=== PATIENT | male | born 1955 | race American Indian/Alaskan Native ===

== ENCOUNTER 2018-09-04 19:34 | Inpatient (IN) | payer MEDICARE ==
[2018-09-04 20:16] LABS: Basophils % (Auto) 0.8 % (0.0-1.8); Eosinophils # (Auto) 0.1 K/mm3 (0.0-0.4); Eosinophils % (Auto) 1.3 % (0.0-4.3); Hematocrit 35.5 % (35.5-45.6); Hemoglobin 11.5 gm/dl (11.8-15.2); Lymphocytes # (Auto) 1.6 K/mm3 (1.2-5.4); Lymphocytes % (Auto) 37.3 % (13.4-35.0); Mean Corpuscular HGB Conc 33 % (32-34); Mean Corpuscular Volume 89 fl (84-94); Monocytes # (Auto) 0.4 K/mm3 (0.0-0.8); Monocytes % (Auto) 8.7 % (0.0-7.3); Platelet Count 168 K/mm3 (140-440); Red Blood Count 3.97 M/mm3 (3.65-5.03); Red Cell Distribution Width 18.6 % (13.2-15.2)
--- NOTE | 2018-09-04 20:33 | XRay Report ---
CHEST 2 VIEWS INDICATION / CLINICAL INFORMATION: Chest Pain. COMPARISON: None available. FINDINGS: SUPPORT DEVICES: None. HEART / MEDIASTINUM: Moderately enlarged. LUNGS / PLEURA: The right lung is clear. There is mild venous congestion. In addition there is modera te left lower lobe consolidation with a small associated effusion. The appearance suggests pneumonia. Left upper lung is clear. No pneumothorax. ADDITIONAL FINDINGS: No significant additional findings. IMPRESSION: 1. Left lower lobe pneumonia with minimal parapneumonic effusion. Signer Name: Cordell Lennon MD Signed: 09/04/2018 8:29 PM Workstation Name: [id number]
[2018-09-04 20:42] LABS: Alanine Aminotransferase 16 units/L (7-56); Albumin 3.8 g/dL (3.9-5); Calcium 6.4 mg/dL (8.4-10.2); Hemolysis Index 4
[2018-09-04 20:54] LABS: Chol/HDL Ratio 2.41 %; HDL Cholesterol 58 mg/dL (40-59); LDL Cholesterol,Direct 57 mg/dL (50-130)
[2018-09-04 21:04] LABS: BUN/Creatinine Ratio 7; Blood Urea Nitrogen 125 mg/dL (9-20)
[2018-09-04] MEDS ORDERED: BABY ASPIRIN PO ONE (21:13)
[2018-09-04] MEDS ORDERED: MAXIPIME/NS 2 GM/100 ML 2 GM/100 ML BAG IV ONE (21:22)
--- NOTE | 2018-09-04 22:20 | Emergency Department Report ---
ED General Adult HPI - General Chief complaint: Chest Pain Stated complaint: DIALYSIS/CP/EMESIS/BLOODY STOOL Time Seen by Provider: 09/04/18 20:04 Source: patient, family Mode of arrival: Wheelchair Limitations: Physical Limitation - History of Present Illness Initial comments: Patient presents to the emergency department with a chief complaint of shortness of breath and chest pain. Patient is a hemodialysis patient with dialysis on Tuesdays, , Saturdays. Patient's last fluid dialyis was on Thursday. Patient states he's missed the last 2 dialysis treatments due to him having diarrhea. Patient describes chest pain as diffuse and also complains of shortness of breath. -: Gradual, Sudden Location: lower extremity Severity scale (0 -10): 6 Quality: aching Consistency: constant Improves with: none Worsens with: none Associated Symptoms: denies other symptoms Treatments Prior to Arrival: none - Related Data Previous Rx's Medication Instructions Recorded Last Taken Type Cefuroxime Axetil [Ceftin] 500 mg PO Q48H #3 ml 12/23/17 Unknown Rx Aspirin EC 81 mg PO QDAY #30 tablet. 01/29/18 Unknown Rx AtorvaSTATin [Lipitor] 20 mg PO QHS #30 tablet 01/29/18 Unknown Rx Carvedilol [Coreg] 12.5 mg PO BID #30 tablet 01/29/18 Unknown Rx Lisinopril [Zestril TAB] 40 mg PO QDAY #30 tablet 01/29/18 Unknown Rx NIFEdipine [Nifedipine ER] 30 mg PO DAILY #30 tablet.er 01/29/18 Unknown Rx Omeprazole 20 mg PO DAILY #30 tablet. 01/29/18 Unknown Rx Sevelamer Carbonate [Renvela] 800 mg PO DAILY #30 tablet 01/29/18 Unknown Rx Tamsulosin [Flomax] 1 cap PO DAILY #30 capsule 01/29/18 Unknown Rx oxyCODONE /ACETAMINOPHEN [Percocet 1 tab PO Q4HR #10 tab 01/29/18 Unknown Rx 5/325] Allergies Allergy/AdvReac Type Severity Reaction Status Date / Time No Known Allergies Allergy Verified 09/04/18 19:38 ED Review of Systems ROS: Stated complaint: DIALYSIS/CP/EMESIS/BLOODY STOOL Other details as noted in HPI Comment: All other systems reviewed and negative Constitutional: denies: chills, fever Eyes: denies: eye pain, eye discharge, vision change ENT: denies: ear pain, throat pain Respiratory: denies: cough, shortness of breath, wheezing Cardiovascular: denies: chest pain, palpitations Endocrine: no symptoms reported Gastrointestinal: denies: abdominal pain, nausea, diarrhea Genitourinary: denies: urgency, dysuria Musculoskeletal: denies: back pain, joint swelling, arthralgia Skin: denies: rash, lesions Neurological: denies: headache, weakness, paresthesias Psychiatric: denies: anxiety, depression Hematological/Lymphatic: denies: easy bleeding, easy bruising ED Past Medical Hx - Past Medical History Previous Medical History?: Yes Hx Hypertension: Yes Hx Congestive Heart Failure: Yes Hx Diabetes: No Hx Renal Disease: Yes (dialysis Sat, , ) Hx Asthma: No Hx COPD: No - Surgical History Past Surgical History?: Yes Additional Surgical History: shunt for dialysis - Social History Smoking Status: Never Smoker Substance Use Type: None - Medications Home Medications: Home Medications Medication Instructions Recorded Confirmed Last Taken Type Cefuroxime Axetil [Ceftin] 500 mg PO Q48H #3 ml 12/23/17 09/04/18 Unknown Rx Aspirin EC 81 mg PO QDAY #30 tablet. 01/29/18 09/04/18 Unknown Rx AtorvaSTATin [Lipitor] 20 mg PO QHS #30 tablet 01/29/18 09/04/18 Unknown Rx Carvedilol [Coreg] 12.5 mg PO BID #30 tablet 01/29/18 09/04/18 Unknown Rx Lisinopril [Zestril TAB] 40 mg PO QDAY #30 tablet 01/29/18 09/04/18 Unknown Rx NIFEdipine [Nifedipine ER] 30 mg PO DAILY #30 tablet.er 01/29/18 09/04/18 Unknown Rx Omeprazole 20 mg PO DAILY #30 tablet. 01/29/18 09/04/18 Unknown Rx Sevelamer Carbonate [Renvela] 800 mg PO DAILY #30 tablet 01/29/18 09/04/18 Unknown Rx Tamsulosin [Flomax] 1 cap PO DAILY #30 capsule 01/29/18 09/04/18 Unknown Rx oxyCODONE /ACETAMINOPHEN [Percocet 1 tab PO Q4HR #10 tab 01/29/18 09/04/18 Unknown Rx 5/325] ED Physical Exam - General Limitations: Physical Limitation General appearance: alert, in no apparent distress - Head Head exam: Present: atraumatic, normocephalic - Eye Eye exam: Present: normal appearance - ENT ENT exam: Present: mucous membranes moist - Neck Neck exam: Present: normal inspection - Respiratory Respiratory exam: Present: rales. Absent: respiratory distress - Cardiovascular Cardiovascular Exam: Present: regular rate, normal rhythm. Absent: normal heart sounds, systolic murmur - GI/Abdominal GI/Abdominal exam: Present: soft, normal bowel sounds. Absent: distended, tende rness - Rectal Rectal exam: Present: deferred - Extremities Exam Extremities exam: Present: normal inspection - Back Exam Back exam: Present: normal inspection - Neurological Exam Neurological exam: Present: alert, oriented X3, CN II-XII intact. Absent: motor sensory deficit - Psychiatric Psychiatric exam: Present: normal affect, normal mood - Skin Skin exam: Present: warm, dry, intact, normal color. Absent: rash ED Course Vital Signs 09/04/18 09/04/18 09/04/18 19:44 20:00 20:21 Temperature 98.3 F Pulse Rate 91 H 95 H Respiratory 20 13 17 Rate Blood Pressure 166/104 Blood Pressure 156/98 [Left] O2 Sat by Pulse 98 Oximetry 09/04/18 09/04/18 09/04/18 20:31 20:40 20:45 Temperature Pulse Rate 90 92 H Respiratory 23 18 14 Rate Blood Pressure 166/104 166/104 Blood Pressure [Left] O2 Sat by Pulse 98 Oximetry 09/04/18 09/04/18 09/04/18 21:00 21:18 21:19 Temperature Pulse Rate 96 H 86 Respiratory 18 12 12 Rate Blood Pressure 170/105 Blood Pressure 170/105 [Left] O2 Sat by Pulse 100 Oximetry ED Medical Decision Making - Lab Data Result diagrams: 09/04/18 19:45 09/04/18 19:45 Lab Results 09/04/18 09/04/18 Range/Units 19:45 19:45 WBC 4.3 L (4.5-11.0) K/mm3 RBC 3.97 (3.65-5.03) M/mm3 Hgb 11.5 L (11.8-15.2) gm/dl Hct 35.5 (35.5-45.6) % MCV 89 (84-94) fl MCH 29 (28-32) pg MCHC 33 (32-34) % RDW 18.6 H (13.2-15.2) % Plt Count 168 (140-440) K/mm3 Lymph % (Auto) 37.3 H (13.4-35.0) % [place] % (Auto) 8.7 H (0.0-7.3) % Eos % (Auto) 1.3 (0.0-4.3) % Baso % (Auto) 0.8 (0.0-1.8) % Lymph # 1.6 (1.2-5.4) K/mm3 [place] # 0.4 (0.0-0.8) K/mm3 Eos # 0.1 (0.0-0.4) K/mm3 Baso # 0.0 (0.0-0.1) K/mm3 Seg Neutrophils % 51.9 (40.0-70.0) % Seg Neutrophils # 2.2 (1.8-7.7) K/mm3 Sodium 142 (137-145) mmol/L Potassium 5.6 H (3.6-5.0) mmol/L Chloride 101.7 (98-107) mmol/L Carbon Dioxide 15 L (22-30) mmol/L Anion Gap 31 mmol/L BUN 125 H (9-20) mg/dL Creatinine 18.7 H (0.8-1.5) mg/dL Estimated GFR 3 ml/min BUN/Creatinine Ratio 7 % Glucose 137 H (75-100) mg/dL Calcium 6.4 L (8.4-10.2) mg/dL Total Bilirubin 1.20 (0.1-1.2) mg/dL AST < 5 L (5-40) units/L ALT 16 (7-56) units/L Alkaline Phosphatase 222 H (35-129) units/L Troponin T 0.087 H (0.00-0.029) ng/mL Total Protein 6.9 (6.3-8.2) g/dL Albumin 3.8 L (3.9-5) g/dL Albumin/Globulin Ratio 1.2 % Triglycerides 149 (2-149) mg/dL Cholesterol 140 (50-199) mg/dL LDL Cholesterol Direct 57 (50-130) mg/dL HDL Cholesterol 58 (40-59) mg/dL Cholesterol/HDL Ratio 2.41 % - EKG Data -: EKG Interpreted by Me EKG shows normal: sinus rhythm Rate: normal - Radiology Data Radiology results: report reviewed - Medical Decision Making Discussed patient with and the patient will receive dialysis in a.m. and received Kayexalate in the interim Discussed results of clinic or with the patient Patient has a questionable left lower lobe infiltrate 30 mL/kg IV fluid was refused by the patient due to concern for fluid overload especially since he has not had dialysis since Thursday The patient has a troponin level of 0.087 this was compared to troponin level on 01/28/2018 which was 0.085 Critical care attestation.: If time is entered above; I have spent that time in minutes in the direct care of this critically ill patient, excluding procedure time. ED Disposition Clinical Impression: Fluid overload, Pneumonia, Hyperkalemia Disposition: OP ADMIT IP TO THIS HOSP Is pt being admited?: Yes Does the pt Need Aspirin: No Condition: Stable Instructions: Bacterial Pneumonia (ED) Referrals: PRIMARY CARE [Primary Care Provider] - 3-5 Days Time of Disposition: 22:50
[2018-09-04] MEDS ORDERED: KIONEX PO ONE (22:44)
[2018-09-04] MEDS ORDERED: SODIUM CHLORIDE FLUSH SYRINGE 10 ML IV PRN (23:44)
[2018-09-04] MEDS ORDERED: TYLENOL PO PRN (23:44)
--- NOTE | 2018-09-04 23:44 | History and Physical Report ---
History of Present Illness Date of examination: 09/04/18 History of present illness: 63 year old man with ESRD on HD, HTN, CHF, GERD comes to the ER with complaints of nausea, vomiting and diarrhea for 1 week. Also complain of hematemesis over 1 week and abdominal pain. Pain is in the epigastric area, sharp,intermittent, intensity 4/10, no radiation, cannot identify exacerbating or relieving factors. He missed 2 days of HD Review of systems Constitutional: no weight loss, chills, fever Ears, eyes, nose, mouth and throat: no nasal congestion, no nasal discharge, no sinus pressure, no vision change, no red eye. Neck: No neck pain or rigidity. Cardiovascular: no palpitations, +chest pain Respiratory: no cough Gastrointestinal: no hematochezia, abdominal pain Genitourinary : no frequency , no hematuria Musculoskeletal: no joint swelling or muscle ache Integumentary: no rash, no pruritis Neurological: no parathesias, no focal weakness Endocrine: no cold or heat intolerance, no polyuria or polydipsia Hematologic/Lymphatic: no easy bruising, no easy bleeding, no gland swelling Allergic/Immunologic: no urticaria, no angioedema. PAST MEDICAL HISTORY:hypertension, CHF, ESRD, GERD PAST SURGICAL HISTORY:AVF SOCIAL HISTORY: Denies alcohol, drugs, tobacco FAMILY HISTORY: Hypertension Medications and Allergies Allergies Allergy/AdvReac Type Severity Reaction Status Date / Time No Known Allergies Allergy Verified 09/04/18 19:38 Home Medications Medication Instructions Recorded Confirmed Last Taken Type Cefuroxime Axetil [Ceftin] 500 mg PO Q48H #3 ml 12/23/17 09/04/18 Unknown Rx Aspirin EC 81 mg PO QDAY #30 tablet. 01/29/18 09/04/18 Unknown Rx AtorvaSTATin [Lipitor] 20 mg PO QHS #30 tablet 01/29/18 09/04/18 Unknown Rx Carvedilol [Coreg] 12.5 mg PO BID #30 tablet 01/29/18 09/04/18 Unknown Rx Lisinopril [Zestril TAB] 40 mg PO QDAY #30 tablet 01/29/18 09/04/18 Unknown Rx NIFEdipine [Nifedipine ER] 30 mg PO DAILY #30 tablet.er 01/29/18 09/04/18 Unknown Rx Omeprazole 20 mg PO DAILY #30 tablet. 01/29/18 09/04/18 Unknown Rx Sevelamer Carbonate [Renvela] 800 mg PO DAILY #30 tablet 01/29/18 09/04/18 Unknown Rx Tamsulosin [Flomax] 1 cap PO DAILY #30 capsule 01/29/18 09/04/18 Unknown Rx oxyCODONE /ACETAMINOPHEN [Percocet 1 tab PO Q4HR #10 tab 01/29/18 09/04/18 Unknown Rx 5/325] Exam - Physical Exam Narrative exam: General Apperance: The patient lying in bed, breathing comfortable HEENT: Normocephalic, atraumatic. Pupils equally round and reactive to light, EOMI, no sclericterus or JVD or thyromegaly or nodule. , no carotid bruit, mucous membranes moist, no exudate or erythema Heart: S1-S2, regular is rhythm Lungs: Clear bilaterally, breathing comfortable Abdomen: Positive bowel sounds, soft, tender in the epigastric area, nondistended, no organomegaly Extremities: No edema cyanosis clubbing Skin: no rash, nodule, warm and dry Neuro: cranial nerves 2-12 intact, speech is fluent, motor/sensory intact - Constitutional Vitals: Temp Pulse Resp BP Pulse Ox 98.3 F 88 18 168/105 100 09/04/18 19:44 09/04/18 23:01 09/04/18 23:01 09/04/18 23:01 09/04/18 23:01 Results - Labs CBC & Chem 7: 09/04/18 19:45 09/04/18 19:45 Labs: Abnormal lab results 09/04/18 09/04/18 09/04/18 Range/Units 19:45 19:45 21:30 WBC 4.3 L (4.5-11.0) K/mm3 Hgb 11.5 L (11.8-15.2) gm/dl RDW 18.6 H (13.2-15.2) % Lymph % (Auto) 37.3 H (13.4-35.0) % [place] % (Auto) 8.7 H (0.0-7.3) % Potassium 5.6 H (3.6-5.0) mmol/L Carbon Dioxide 15 L (22-30) mmol/L BUN 125 H (9-20) mg/dL Creatinine 18.7 H (0.8-1.5) mg/dL Glucose 137 H (75-100) mg/dL Lactic Acid (0.7-2.0) mmol/L Calcium 6.4 L (8.4-10.2) mg/dL AST < 5 L (5-40) units/L Alkaline Phosphatase 222 H (35-129) units/L Troponin T 0.087 H (0.00-0.029) ng/mL NT-Pro-B Natriuret Pep > 45837 H (0-900) pg/mL Albumin 3.8 L (3.9-5) g/dL 09/04/18 Range/Units 21:30 WBC (4.5-11.0) K/mm3 Hgb (11.8-15.2) gm/dl RDW (13.2-15.2) % Lymph % (Auto) (13.4-35.0) % [place] % (Auto) (0.0-7.3) % Potassium (3.6-5.0) mmol/L Carbon Dioxide (22-30) mmol/L BUN (9-20) mg/dL Creatinine (0.8-1.5) mg/dL Glucose (75-100) mg/dL Lactic Acid 2.50 H* (0.7-2.0) mmol/L Calcium (8.4-10.2) mg/dL AST (5-40) units/L Alkaline Phosphatase (35-129) units/L Troponin T (0.00-0.029) ng/mL NT-Pro-B Natriuret Pep (0-900) pg/mL Albumin (3.9-5) g/dL - Imaging and Cardiology Chest x-ray: report reviewed Assessment and Plan Assessment Abdominal pain Hematemesis, georgina sung tear Gastroenteritis, viral ESRD needing dialysis CAP hyperkalemia Abnormal cardiac enzymes Hypertension CHF, stable GERD Plan Admit to medicine Check CT abdomen, start IV protonix Check serial hemoglobin, consult GI, renal hydralazine as needed for blood pressure control s/p kayexalate, follow potassium, check cardiac enzymes Start IV levaquin, follow cultures DVT prophalaxis
[2018-09-05] MEDS ORDERED: PROTONIX IV ONE (00:28)
[2018-09-05] MEDS ORDERED: MORPHINE ONE (00:29)
[2018-09-05] MEDS: MORPHINE IV PRN ×2 (00:45→05:48)
[2018-09-05] MEDS: PROTONIX IV SCH ×3 (00:45→22:26)
--- NOTE | 2018-09-05 00:54 | Cat Scan Report ---
CT ABDOMEN AND PELVIS WITHOUT CONTRAST HISTORY: Unspecified abdominal pain with nausea, vomiting and diarrhea. COMPARISON: [facility] from 01/27/2018. TECHNIQUE: Axial, coronal and sagittal CT imaging of the abdomen and pelvis was performed without IV contrast. Lack of intravenous contrast limits evaluation of the vascular and solid organs. All CT scans at this location are performed using CT dose reduction for ALARA by means of automated exposure control. FINDINGS: LOWER CHEST: There is a small left pleural effusion with associated atelectasis. The heart is moderat michelle enlarged without a pericardial effusion. LIVER: Normal in size with scattered probable cysts. No additional significant abnormality. BILIARY: No significant abnormality. PANCREAS: No significant abnormality. SPLEEN: No significant abnormality. ADRENALS: No significant abnormality. KIDNEYS AND URETERS: There is severe bilateral renal atrophy. No acute abnormality is seen. GI TRACT: Liquid stool is seen along the colon and consistent with the provided history of diarrhea. No other significant abnormality of the stomach, small bowel or colon is seen. Unremarkable appendix. PERITONEUM: No free fluid. No free air. No fluid collection. LYMPH NODES: No significant adenopathy. VASCULATURE: No significant abnormality. URINARY BLADDER: The bladder is collapsed and not well evaluated. REPRODUCTIVE ORGANS: The prostate gland is enlarged and measures 6.4 x 5.4 cm. ADDITIONAL FINDINGS: None. SKELETAL SYSTEM: No acute abnormality. Generalized sclerosis/heterogeneity along the bones may be sec ondary to chronic renal disease. IMPRESSION: 1. No acute abnormality of the abdomen or pelvis. 2. Additional findings as above. Signer Name: Dylan Rodriguez MD Signed: 09/05/2018 12:49 AM Workstation Name: [id number]
[2018-09-05 01:07] LABS: Hematocrit 35.1 % (35.5-45.6); Hemoglobin 11.5 gm/dl (11.8-15.2)
[2018-09-05] MEDS: ZOFRAN IV PRN ×2 (01:36→23:15)
[2018-09-05 02:28] LABS: Creatine Kinase MB 4.5 ng/mL (0.0-4.0)
[2018-09-05 04:11] LABS: Basophils % (Auto) 0.7 % (0.0-1.8); Eosinophils # (Auto) 0.1 K/mm3 (0.0-0.4); Eosinophils % (Auto) 1.4 % (0.0-4.3); Hematocrit 34.3 % (35.5-45.6); Hemoglobin 11.2 gm/dl (11.8-15.2); Lymphocytes # (Auto) 2.2 K/mm3 (1.2-5.4); Lymphocytes % (Auto) 44.3 % (13.4-35.0); Mean Corpuscular HGB Conc 33 % (32-34); Mean Corpuscular Volume 89 fl (84-94); Monocytes # (Auto) 0.4 K/mm3 (0.0-0.8); Platelet Count 168 K/mm3 (140-440); Red Blood Count 3.86 M/mm3 (3.65-5.03); Red Cell Distribution Width 18.7 % (13.2-15.2)
[2018-09-05 04:28] LABS: Calcium 6.2 mg/dL (8.4-10.2)
--- NOTE | 2018-09-05 08:59 | Progress Note ---
Assessment and Plan Assessment and plan: Assessment Abdominal pain Hematemesis,likely georgina sung tear Gastroenteritis, viral ESRD needing dialysis CAP hyperkalemia Abnormal cardiac enzymes Hypertension CHF, stable GERD Plan Admitted to medicine Continue IV protonix Check serial hemoglobin, consulted GI, renal hydralazine as needed for blood pressure control s/p kayexalate, follow potassium, check cardiac enzymes Cont IV levaquin, follow cultures Check stool culture,cdiff DVT prophalaxis History Interval history: Nausea and vomiting Hematemesis Diarrhea Hospitalist Physical - Physical exam Narrative exam: Gen: Not in acute distress, sitting up in bed, morbidly obese HEENT: Normocephalic, atraumatic Neck: supple, no JVD Heart: S1 and S2 reg, no murmurs, rubs or gallop Lungs: Clear, no crackles or wheeze Abd: soft, non tender, non distended, normal BS, wound vac to abdomen Ext: No edema, no clubbing, no cyanosis Neuro:awake,alert, Oriented X 3. No focal neuro signs Psych: normal mood - Constitutional Vitals: Temp Pulse Resp BP Pulse Ox 97.3 F L 86 18 167/96 96 09/05/18 03:55 09/05/18 04:48 09/05/18 06:18 09/05/18 03:55 09/05/18 03:55 Results - Labs CBC & Chem 7: 09/05/18 10:00 09/05/18 03:41 Labs: Laboratory Last Values WBC 4.9 K/mm3 (4.5-11.0) 09/05/18 03:41 RBC 3.86 M/mm3 (3.65-5.03) 09/05/18 03:41 Hgb 11.2 gm/dl (11.8-15.2) L 09/05/18 03:41 Hct 34.3 % (35.5-45.6) L 09/05/18 03:41 MCV 89 fl (84-94) 09/05/18 03:41 MCH 29 pg (28-32) 09/05/18 03:41 MCHC 33 % (32-34) 09/05/18 03:41 RDW 18.7 % (13.2-15.2) H 09/05/18 03:41 Plt Count 168 K/mm3 (140-440) 09/05/18 03:41 Lymph % (Auto) 44.3 % (13.4-35.0) H 09/05/18 03:41 [place] % (Auto) 9.0 % (0.0-7.3) H 09/05/18 03:41 Eos % (Auto) 1.4 % (0.0-4.3) 09/05/18 03:41 Baso % (Auto) 0.7 % (0.0-1.8) 09/05/18 03:41 Lymph # 2.2 K/mm3 (1.2-5.4) 09/05/18 03:41 [place] # 0.4 K/mm3 (0.0-0.8) 09/05/18 03:41 Eos # 0.1 K/mm3 (0.0-0.4) 09/05/18 03:41 Baso # 0.0 K/mm3 (0.0-0.1) 09/05/18 03:41 Seg Neutrophils % 44.6 % (40.0-70.0) 09/05/18 03:41 Seg Neutrophils # 2.2 K/mm3 (1.8-7.7) 09/05/18 03:41 Sodium 144 mmol/L (137-145) 09/05/18 03:41 Potassium 5.6 mmol/L (3.6-5.0) H 09/05/18 03:41 Chloride 103.2 mmol/L (98-107) 09/05/18 03:41 Carbon Dioxide 16 mmol/L (22-30) L 09/05/18 03:41 30 mmol/L 09/05/18 03:41 BUN 124 mg/dL (9-20) H 09/05/18 03:41 19.6 mg/dL (0.8-1.5) H 09/05/18 03:41 Estimated GFR 3 ml/min 09/05/18 03:41 6 % 09/05/18 03:41 Glucose 113 mg/dL (75-100) H 09/05/18 03:41 Lactic Acid 1.50 mmol/L (0.7-2.0) 09/05/18 03:41 Calcium 6.2 mg/dL (8.4-10.2) L 09/05/18 03:41 1.20 mg/dL (0.1-1.2) 09/04/18 19:45 AST < 5 units/L (5-40) L 09/04/18 19:45 ALT 16 units/L (7-56) 09/04/18 19:45 222 units/L (35-129) H 09/04/18 19:45 617 units/L (55-170) H 09/05/18 01:04 CK-MB (CK-2) 4.5 ng/mL (0.0-4.0) H 09/05/18 01:04 CK-MB (CK-2) Rel Index 0.7 (0-4) 09/05/18 01:04 0.087 ng/mL (0.00-0.029) H 09/05/18 01:04 NT-Pro-B Natriuret Pep > 44538 pg/mL (0-900) H 09/04/18 21:30 6.9 g/dL (6.3-8.2) 09/04/18 19:45 3.8 g/dL (3.9-5) L 09/04/18 19:45 1.2 % 09/04/18 19:45 Triglycerides 149 mg/dL (2-149) 09/04/18 19:45 Cholesterol 140 mg/dL (50-199) 09/04/18 19:45 57 mg/dL (50-130) 09/04/18 19:45 58 mg/dL (40-59) 09/04/18 19:45 2.41 % 09/04/18 19:45 Active Medications - Current Medications Current Medications: Generic Name Dose Route Start Last Admin Trade Name Freq PRN Reason Stop Dose Admin Acetaminophen 650 mg 09/04/18 23:44 Tylenol PO Q4H PRN Pain MILD(1-3)/Fever >100.5/STARK Levofloxacin/Dextrose 250 mg in 50 mls @ 50 mls/hr 09/05/18 10:00 Levaquin 250mg/50ml IV Q24HR BRANDEE Protocol Morphine Sulfate 2 mg 09/04/18 23:44 09/05/18 05:48 Morphine IV 2 mg Q4H PRN Administration Pain, Moderate (4-6) Ondansetron HCl 4 mg 09/04/18 23:44 09/05/18 01:36 Zofran IV 4 mg Q8H PRN Administration Nausea And Vomiting Pantoprazole Sodium 40 mg 09/04/18 23:45 09/05/18 00:45 Protonix IV 40 mg BID BRANDEE Administration Sodium Chloride 10 ml 09/05/18 10:00 Sodium Chloride Flush Syringe 10 Ml IV BID BRANDEE Sodium Chloride 10 ml 09/04/18 23:44 09/05/18 05:49 Sodium Chloride Flush Syringe 10 Ml IV 10 ml PRN PRN Administration LINE FLUSH
[2018-09-05] MEDS: SODIUM CHLORIDE FLUSH SYRINGE 10 ML IV SCH ×2 (10:19→22:26)
[2018-09-05] MEDS: LEVAQUIN 250MG/50ML 250 MG/50 ML BAG IV SCH (10:19)
[2018-09-05 10:35] LABS: Creatine Kinase MB 4.6 ng/mL (0.0-4.0)
[2018-09-05 10:45] LABS: Hematocrit 37.2 % (35.5-45.6); Hemoglobin 11.2 gm/dl (11.8-15.2)
[2018-09-05] MEDS ORDERED: NACL 0.9% 100 ML IV PRN (11:25)
[2018-09-05] MEDS ORDERED: NACL 0.9 (PRIMING MACHINE ONLY DIALYSIS) MC ONE (12:20)
[2018-09-05 12:32] LABS: Hepatitis C Virus Antibody Non-Reactive (NonReactive)
[2018-09-05 13:08] LABS: Hepatitis B Surface Antigen Non-Reactive (Negative)
--- NOTE | 2018-09-05 13:11 | Consultation ---
History of Present Illness - Reason for Consult Consult date: 09/05/18 end stage renal disease Requesting physician: MICHELLE SHAH - History of Present Illness 63 year old man with ESRD on HD, HTN, CHF, GERD comes to the ER with complaints of nausea, vomiting and diarrhea for 1 week. Also complain of hematemesis over 1 week and abdominal pain. Pain is in the epigastric area, sharp,intermittent, intensity 4/10, no radiation, cannot identify exacerbating or relieving factors. He missed 2 days of HD. He is found to be hyperkalemic with a potassium of 5.6. He is also clinically volume overloaded. Hemodialysis has been initiated. He is tolerating it well. Past History Past Medical History: dialysis, GERD, heart failure, hypertension Past Surgical History: Other (history of creation of AV fistula) Social history: no significant social history Family history: no significant family history Medications and Allergies Allergies Allergy/AdvReac Type Severity Reaction Status Date / Time No Known Allergies Allergy Verified 09/04/18 19:38 Home Medications Medication Instructions Recorded Confirmed Last Taken Type Cefuroxime Axetil [Ceftin] 500 mg PO Q48H #3 ml 12/23/17 09/04/18 Unknown Rx Aspirin EC 81 mg PO QDAY #30 tablet. 01/29/18 09/04/18 Unknown Rx AtorvaSTATin [Lipitor] 20 mg PO QHS #30 tablet 01/29/18 09/04/18 Unknown Rx Carvedilol [Coreg] 12.5 mg PO BID #30 tablet 01/29/18 09/04/18 Unknown Rx Lisinopril [Zestril TAB] 40 mg PO QDAY #30 tablet 01/29/18 09/04/18 Unknown Rx NIFEdipine [Nifedipine ER] 30 mg PO DAILY #30 tablet.er 01/29/18 09/04/18 Unknown Rx Omeprazole 20 mg PO DAILY #30 tablet. 01/29/18 09/04/18 Unknown Rx Sevelamer Carbonate [Renvela] 800 mg PO DAILY #30 tablet 01/29/18 09/04/18 Unknown Rx Tamsulosin [Flomax] 1 cap PO DAILY #30 capsule 01/29/18 09/04/18 Unknown Rx oxyCODONE /ACETAMINOPHEN [Percocet 1 tab PO Q4HR #10 tab 01/29/18 09/04/18 Unknown Rx 5/325] Active Meds: Active Medications Acetaminophen (Tylenol) 650 mg PO Q4H PRN PRN Reason: Pain MILD(1-3)/Fever >100.5/STARK Levofloxacin/Dextrose (Levaquin 250mg/50ml) 250 mg in 50 mls @ 50 mls/hr IV Q24HR [facility]; Protocol Last Admin: 09/05/18 10:19 Dose: 50 mls/hr Documented by: Sodium Chloride (Nacl 0.9%) 100 mls @ 999 mls/hr IV MARGARET PRN PRN Reason: Hypotension Morphine Sulfate (Morphine) 2 mg IV Q4H PRN PRN Reason: Pain, Moderate (4-6) Last Admin: 09/05/18 05:48 Dose: 2 mg Documented by: Ondansetron HCl (Zofran) 4 mg IV Q8H PRN PRN Reason: Nausea And Vomiting Last Admin: 09/05/18 01:36 Dose: 4 mg Documented by: Pantoprazole Sodium (Protonix) 40 mg IV BID [facility] Last Admin: 09/05/18 10:19 Dose: 40 mg Documented by: Sodium Chloride (Sodium Chloride Flush Syringe 10 Ml) 10 ml IV BID [facility] Last Admin: 09/05/18 10:19 Dose: 10 ml Documented by: Sodium Chloride (Sodium Chloride Flush Syringe 10 Ml) 10 ml IV PRN PRN PRN Reason: LINE FLUSH Last Admin: 09/05/18 05:49 Dose: 10 ml Documented by: Review of Systems All systems: negative (negative except as noted above) Exam - Vital Signs Vital signs: Vital Signs Temp Pulse Resp BP Pulse Ox 98.3 F 91 H 20 156/98 98 09/04/18 19:44 09/04/18 19:44 09/04/18 19:44 09/04/18 19:44 09/04/18 19:44 - General Appearance General appearance: well-developed, well-nourished, appears stated age EENT: PERRL, mucous membranes moist Neck: Present: neck supple, trachea midline. Absent: JVD/HJR, Masses Respiratory: Rales (bibasilar crackles) Heart: regular, normal heart rate Gastrointestinal: Present: normoactive bowel sounds, tenderness (diffuse abdominal tenderness.) Integumentary: no rash, other (AV fistula right upper arm. Cannulated for dialysis.) Results - Lab Results 09/05/18 10:00 09/05/18 03:41 Most recent lab results Calcium 6.2 mg/dL (8.4-10.2) L 09/05/18 03:41 Assessment and Plan Impression * End-stage renal disease on maintenance hemodialysis * Hyperkalemia * Congestive heart failure * Noncompliance * Abdominal pain * Metabolic acidosis * History of GERD Recommendations * Patient is currently undergoing urgent dialysis. Tolerating well. * Remove fluid as tolerated * Check his chemistries and volume status again tomorrow. May need additional treatment tomorrow * Patient states that he undergoes dialysis at a clinic in [facility] under the care of Dr. Schofield * Hold phosphate binders for now due to his GI symptoms * Check a lipase level * CT scan done in the emergency room was essentially unremarkable * Adjust diet admits for ESRD state * Thank you very much for the consultation. Shall follow along with you
--- NOTE | 2018-09-05 16:42 | Gastroenterology Consultation ---
History of Present Illness - Reason for Consult Consult date: 09/05/18 N/V Requesting physician: TIFFANIE ROSALES - History of Present Illness This is a pleasant 63 year old man with ESRD on HD, HTN, CHF, GERD who present with recurrent episode of nausea, vomiting abd pain and diarrhea for 2 week. He reports 2 weeks ago started to develop abdominal pain that was diffuse, gradual, started off mild but is progressing to the point of now being severe. Sharp, better with meds, worse with eating, associated with N/V/diarrhea. Reports some blood streak in vomitus but again has been nauseated alot these last few days. Missed 2 dialysis sessions. PAST MEDICAL HISTORY:hypertension, CHF, ESRD, GERD PAST SURGICAL HISTORY: AVF SOCIAL HISTORY: Denies alcohol, drugs, tobacco FAMILY HISTORY: Hypertension Home meds reviewed, updated, and reconciled Past History Past Medical History: dialysis, GERD, heart failure, hypertension Past Surgical History: Other (history of creation of AV fistula) Social history: no significant social history Family history: no significant family history Medications and Allergies Allergies Allergy/AdvReac Type Severity Reaction Status Date / Time No Known Allergies Allergy Verified 09/04/18 19:38 Home Medications Medication Instructions Recorded Confirmed Last Taken Type Cefuroxime Axetil [Ceftin] 500 mg PO Q48H #3 ml 12/23/17 09/04/18 Unknown Rx Aspirin EC 81 mg PO QDAY #30 tablet. 01/29/18 09/04/18 Unknown Rx AtorvaSTATin [Lipitor] 20 mg PO QHS #30 tablet 01/29/18 09/04/18 Unknown Rx Carvedilol [Coreg] 12.5 mg PO BID #30 tablet 01/29/18 09/04/18 Unknown Rx Lisinopril [Zestril TAB] 40 mg PO QDAY #30 tablet 01/29/18 09/04/18 Unknown Rx NIFEdipine [Nifedipine ER] 30 mg PO DAILY #30 tablet.er 01/29/18 09/04/18 Unknown Rx Omeprazole 20 mg PO DAILY #30 tablet. 01/29/18 09/04/18 Unknown Rx Sevelamer Carbonate [Renvela] 800 mg PO DAILY #30 tablet 01/29/18 09/04/18 Unknown Rx Tamsulosin [Flomax] 1 cap PO DAILY #30 capsule 01/29/18 09/04/18 Unknown Rx oxyCODONE /ACETAMINOPHEN [Percocet 1 tab PO Q4HR #10 tab 01/29/18 09/04/18 Unknown Rx 5/325] Active Meds: Active Medications Acetaminophen (Tylenol) 650 mg PO Q4H PRN PRN Reason: Pain MILD(1-3)/Fever >100.5/STARK Levofloxacin/Dextrose (Levaquin 250mg/50ml) 250 mg in 50 mls @ 50 mls/hr IV Q24HR [facility]; Protocol Last Admin: 09/05/18 10:19 Dose: 50 mls/hr Documented by: Sodium Chloride (Nacl 0.9%) 100 mls @ 999 mls/hr IV MARGARET PRN PRN Reason: Hypotension Morphine Sulfate (Morphine) 2 mg IV Q4H PRN PRN Reason: Pain, Moderate (4-6) Last Admin: 09/05/18 05:48 Dose: 2 mg Documented by: Ondansetron HCl (Zofran) 4 mg IV Q8H PRN PRN Reason: Nausea And Vomiting Last Admin: 09/05/18 01:36 Dose: 4 mg Documented by: Pantoprazole Sodium (Protonix) 40 mg IV BID [facility] Last Admin: 09/05/18 10:19 Dose: 40 mg Documented by: Sodium Chloride (Sodium Chloride Flush Syringe 10 Ml) 10 ml IV BID [facility] Last Admin: 09/05/18 10:19 Dose: 10 ml Documented by: Sodium Chloride (Sodium Chloride Flush Syringe 10 Ml) 10 ml IV PRN PRN PRN Reason: LINE FLUSH Last Admin: 09/05/18 05:49 Dose: 10 ml Documented by: Review of Systems - Review of Systems All systems: negative Gastrointestinal: abdominal pain, nausea, vomiting, diarrhea Exam - Constitutional Vital Signs: Temp Pulse Resp BP Pulse Ox 98.2 F 70 18 141/78 96 09/05/18 14:31 09/05/18 14:31 09/05/18 14:31 09/05/18 14:31 09/05/18 03:55 General appearance: other (uncomfortable) - EENT Eyes: other (no scleral icterus) ENT: hearing intact - Neck Neck: supple - Respiratory Respiratory: bilateral: CTA - Cardiovascular Rhythm: regular - Gastrointestinal General gastrointestinal: Present: soft, tender - Integumentary Integumentary: Present: warm, dry - Musculoskeletal Musculoskeletal: normal - Neurologic Neurological: alert and oriented x3 - Psychiatric Psychiatric: appropriate mood/affect - Labs CBC & Chem 7: 09/05/18 10:00 09/05/18 03:41 Lab Results: Laboratory Results - last 24 hr 09/04/18 09/04/18 09/04/18 19:45 19:45 21:30 WBC 4.3 L RBC 3.97 Hgb 11.5 L Hct 35.5 MCV 89 MCH 29 MCHC 33 RDW 18.6 H Plt Count 168 Lymph % (Auto) 37.3 H Stark % (Auto) 8.7 H Eos % (Auto) 1.3 Baso % (Auto) 0.8 Lymph # 1.6 Stark # 0.4 Eos # 0.1 Baso # 0.0 Seg Neutrophils % 51.9 Seg Neutrophils # 2.2 Sodium 142 Potassium 5.6 H Chloride 101.7 Carbon Dioxide 15 L Anion Gap 31 BUN 125 H Creatinine 18.7 H Estimated GFR 3 BUN/Creatinine Ratio 7 Glucose 137 H Lactic Acid Calcium 6.4 L Total Bilirubin 1.20 AST < 5 L ALT 16 Alkaline Phosphatase 222 H Total Creatine Kinase CK-MB (CK-2) CK-MB (CK-2) Rel Index Troponin T 0.087 H NT-Pro-B Natriuret Pep > 74656 H Total Protein 6.9 Albumin 3.8 L Albumin/Globulin Ratio 1.2 Triglycerides 149 Cholesterol 140 LDL Cholesterol Direct 57 HDL Cholesterol 58 Cholesterol/HDL Ratio 2.41 Lipase Hepatitis A IgM Ab Hep Bs Antigen Hep B Core IgM Ab Hepatitis C Antibody 09/04/18 09/05/18 09/05/18 21:30 00:43 00:43 WBC RBC Hgb 11.5 L Hct 35.1 L MCV MCH MCHC RDW Plt Count Lymph % (Auto) Stark % (Auto) Eos % (Auto) Baso % (Auto) Lymph # Stark # Eos # Baso # Seg Neutrophils % Seg Neutrophils # Sodium Potassium Chloride Carbon Dioxide Anion Gap BUN Creatinine Estimated GFR BUN/Creatinine Ratio Glucose Lactic Acid 2.50 H* 2.10 H* Calcium Total Bilirubin AST ALT Alkaline Phosphatase Total Creatine Kinase CK-MB (CK-2) CK-MB (CK-2) Rel Index Troponin T NT-Pro-B Natriuret Pep Total Protein Albumin Albumin/Globulin Ratio Triglycerides Cholesterol LDL Cholesterol Direct HDL Cholesterol Cholesterol/HDL Ratio Lipase Hepatitis A IgM Ab Hep Bs Antigen Hep B Core IgM Ab Hepatitis C Antibody 09/05/18 09/05/18 09/05/18 01:04 01:04 03:41 WBC 4.9 RBC 3.86 Hgb 11.2 L Hct 34.3 L MCV 89 MCH 29 MCHC 33 RDW 18.7 H Plt Count 168 Lymph % (Auto) 44.3 H Stark % (Auto) 9.0 H Eos % (Auto) 1.4 Baso % (Auto) 0.7 Lymph # 2.2 Stark # 0.4 Eos # 0.1 Baso # 0.0 Seg Neutrophils % 44.6 Seg Neutrophils # 2.2 Sodium Potassium Chloride Carbon Dioxide Anion Gap BUN Creatinine Estimated GFR BUN/Creatinine Ratio Glucose Lactic Acid Calcium Total Bilirubin AST ALT Alkaline Phosphatase Total Creatine Kinase 617 H CK-MB (CK-2) 4.5 H CK-MB (CK-2) Rel Index 0.7 Troponin T 0.087 H NT-Pro-B Natriuret Pep Total Protein Albumin Albumin/Globulin Ratio Triglycerides Cholesterol LDL Cholesterol Direct HDL Cholesterol Cholesterol/HDL Ratio Lipase Hepatitis A IgM Ab Hep Bs Antigen Hep B Core IgM Ab Hepatitis C Antibody 09/05/18 09/05/18 09/05/18 03:41 03:41 10:00 WBC RBC Hgb 11.2 L Hct 37.2 MCV MCH MCHC RDW Plt Count Lymph % (Auto) Stark % (Auto) Eos % (Auto) Baso % (Auto) Lymph # Stark # Eos # Baso # Seg Neutrophils % Seg Neutrophils # Sodium 144 Potassium 5.6 H Chloride 103.2 Carbon Dioxide 16 L Anion Gap 30 BUN 124 H Creatinine 19.6 H Estimated GFR 3 BUN/Creatinine Ratio 6 Glucose 113 H Lactic Acid 1.50 Calcium 6.2 L Total Bilirubin AST ALT Alkaline Phosphatase Total Creatine Kinase CK-MB (CK-2) CK-MB (CK-2) Rel Index Troponin T NT-Pro-B Natriuret Pep Total Protein Albumin Albumin/Globulin Ratio Triglycerides Cholesterol LDL Cholesterol Direct HDL Cholesterol Cholesterol/HDL Ratio Lipase Hepatitis A IgM Ab Hep Bs Antigen Hep B Core IgM Ab Hepatitis C Antibody 09/05/18 09/05/18 09/05/18 10:00 10:00 10:00 WBC RBC Hgb Hct MCV MCH MCHC RDW Plt Count Lymph % (Auto) Stark % (Auto) Eos % (Auto) Baso % (Auto) Lymph # Stark # Eos # Baso # Seg Neutrophils % Seg Neutrophils # Sodium Potassium Chloride Carbon Dioxide Anion Gap BUN Creatinine Estimated GFR BUN/Creatinine Ratio Glucose Lactic Acid Calcium Total Bilirubin AST ALT Alkaline Phosphatase Total Creatine Kinase 571 H CK-MB (CK-2) 4.6 H CK-MB (CK-2) Rel Index 0.8 Troponin T 0.083 H NT-Pro-B Natriuret Pep Total Protein Albumin Albumin/Globulin Ratio Triglycerides Cholesterol LDL Cholesterol Direct HDL Cholesterol Cholesterol/HDL Ratio Lipase 50 Hepatitis A IgM Ab Hep Bs Antigen Hep B Core IgM Ab Hepatitis C Antibody 09/05/18 11:31 WBC RBC Hgb Hct MCV MCH MCHC RDW Plt Count Lymph % (Auto) Stark % (Auto) Eos % (Auto) Baso % (Auto) Lymph # Stark # Eos # Baso # Seg Neutrophils % Seg Neutrophils # Sodium Potassium Chloride Carbon Dioxide Anion Gap BUN Creatinine Estimated GFR BUN/Creatinine Ratio Glucose Lactic Acid Calcium Total Bilirubin AST ALT Alkaline Phosphatase Total Creatine Kinase CK-MB (CK-2) CK-MB (CK-2) Rel Index Troponin T NT-Pro-B Natriuret Pep Total Protein Albumin Albumin/Globulin Ratio Triglycerides Cholesterol LDL Cholesterol Direct HDL Cholesterol Cholesterol/HDL Ratio Lipase Hepatitis A IgM Ab Non-reactive Hep Bs Antigen Non-reactive Hep B Core IgM Ab Non-reactive Hepatitis C Antibody Non-reactive Assessment and Plan Patient will likely require EGD for further evaluation of his symptoms, especially as they proceeded his missing dialysis (his current labs would cause N/V, but presumably they were normal last week after his symptoms had already started but had not yet missed any dialysis sessions). The Differential diagnosis includes PUD, HPylori, etc, also in Ddx is biliary source so if EGD is neg then will pursue biliary evaluation. Continue supportive care, once electrolytes are normalized can pursue EGD Follow up stool studies given diarrhea - Patient Problems (1) Generalized abdominal pain Current Visit: Yes Status: Acute (2) Nausea & vomiting Current Visit: Yes Status: Acute (3) Diarrhea Current Visit: Yes Status: Acute
[2018-09-06 06:24] LABS: Basophils % (Auto) 0.3 % (0.0-1.8); Eosinophils # (Auto) 0.1 K/mm3 (0.0-0.4); Eosinophils % (Auto) 1.6 % (0.0-4.3); Hematocrit 31.6 % (35.5-45.6); Hemoglobin 10.5 gm/dl (11.8-15.2); Lymphocytes # (Auto) 1.3 K/mm3 (1.2-5.4); Mean Corpuscular HGB Conc 33 % (32-34); Mean Corpuscular Volume 88 fl (84-94); Monocytes # (Auto) 0.5 K/mm3 (0.0-0.8); Monocytes % (Auto) 14.3 % (0.0-7.3); Platelet Count 163 K/mm3 (140-440); Red Blood Count 3.59 M/mm3 (3.65-5.03); Red Cell Distribution Width 18.7 % (13.2-15.2)
[2018-09-06 07:00] LABS: Calcium 5.3 mg/dL (8.4-10.2)
--- NOTE | 2018-09-06 09:49 | Progress Note ---
Assessment and Plan Assessment and plan: Assessment Abdominal pain Hematemesis, Gastroenteritis, viral ESRD needing dialysis CAP left lower lobe left parapneumoonic effusion hyperkalemia Abnormal cardiac enzymes Hypertension Chronic CHF, stable GERD Plan Admitted to medicine Serial H/H has been stable Continue IV protonix Check serial hemoglobin, GI Physivcian following. For EGD tomorrow Nephrology managing ESRD on dialysis hydralazine as needed for blood pressure control s/p kayexalate for hyperkalemia, now resolved Cont IV levaquin, follow cultures Check stool culture,cdiff DVT prophalaxis SCDs only because hematemesis Fu repeat CXR in am. If left pleural effusion persists may consult Pulm. History Interval history: Nausea and vomiting Hematemesis Diarrhea Hospitalist Physical - Physical exam Narrative exam: Gen: Not in acute distress, lying in bed HEENT: Normocephalic, atraumatic Neck: supple, no JVD Heart: S1 and S2 reg, no murmurs, rubs or gallop Lungs: Clear, no crackles or wheeze Abd: soft, non tender, non distended, normal BS, Ext: No edema, no clubbing, no cyanosis Neuro:awake,alert, Oriented X 3. No focal neuro signs Psych: normal mood - Constitutional Vitals: Temp Pulse Resp BP Pulse Ox 98.2 F 84 18 134/78 100 09/06/18 07:32 09/06/18 07:32 09/06/18 07:32 09/06/18 07:32 09/06/18 07:32 Results - Labs CBC & Chem 7: 09/06/18 05:08 09/06/18 21:10 Labs: Laboratory Last Values WBC 3.8 K/mm3 (4.5-11.0) L 09/06/18 05:08 RBC 3.59 M/mm3 (3.65-5.03) L 09/06/18 05:08 Hgb 10.5 gm/dl (11.8-15.2) L 09/06/18 05:08 Hct 31.6 % (35.5-45.6) L 09/06/18 05:08 MCV 88 fl (84-94) 09/06/18 05:08 MCH 29 pg (28-32) 09/06/18 05:08 MCHC 33 % (32-34) 09/06/18 05:08 RDW 18.7 % (13.2-15.2) H 09/06/18 05:08 Plt Count 163 K/mm3 (140-440) 09/06/18 05:08 Lymph % (Auto) 34.0 % (13.4-35.0) 09/06/18 05:08 [place] % (Auto) 14.3 % (0.0-7.3) H 09/06/18 05:08 Eos % (Auto) 1.6 % (0.0-4.3) 09/06/18 05:08 Baso % (Auto) 0.3 % (0.0-1.8) 09/06/18 05:08 Lymph # 1.3 K/mm3 (1.2-5.4) 09/06/18 05:08 [place] # 0.5 K/mm3 (0.0-0.8) 09/06/18 05:08 Eos # 0.1 K/mm3 (0.0-0.4) 09/06/18 05:08 Baso # 0.0 K/mm3 (0.0-0.1) 09/06/18 05:08 Seg Neutrophils % 49.8 % (40.0-70.0) 09/06/18 05:08 Seg Neutrophils # 1.9 K/mm3 (1.8-7.7) 09/06/18 05:08 Sodium 142 mmol/L (137-145) 09/06/18 05:08 Potassium 4.1 mmol/L (3.6-5.0) D 09/06/18 05:08 Chloride 99.6 mmol/L (98-107) 09/06/18 05:08 Carbon Dioxide 23 mmol/L (22-30) D 09/06/18 05:08 24 mmol/L 09/06/18 05:08 BUN 64 mg/dL (9-20) H 09/06/18 05:08 13.5 mg/dL (0.8-1.5) H 09/06/18 05:08 Estimated GFR 5 ml/min 09/06/18 05:08 5 % 09/06/18 05:08 Glucose 90 mg/dL (75-100) 09/06/18 05:08 Lactic Acid 1.50 mmol/L (0.7-2.0) 09/05/18 03:41 Calcium 5.3 mg/dL (8.4-10.2) L* 09/06/18 05:08 1.20 mg/dL (0.1-1.2) 09/04/18 19:45 AST < 5 units/L (5-40) L 09/04/18 19:45 ALT 16 units/L (7-56) 09/04/18 19:45 222 units/L (35-129) H 09/04/18 19:45 571 units/L (55-170) H 09/05/18 10:00 CK-MB (CK-2) 4.6 ng/mL (0.0-4.0) H 09/05/18 10:00 CK-MB (CK-2) Rel Index 0.8 (0-4) 09/05/18 10:00 0.083 ng/mL (0.00-0.029) H 09/05/18 10:00 NT-Pro-B Natriuret Pep > 89375 pg/mL (0-900) H 09/04/18 21:30 6.9 g/dL (6.3-8.2) 09/04/18 19:45 3.8 g/dL (3.9-5) L 09/04/18 19:45 1.2 % 09/04/18 19:45 Triglycerides 149 mg/dL (2-149) 09/04/18 19:45 Cholesterol 140 mg/dL (50-199) 09/04/18 19:45 57 mg/dL (50-130) 09/04/18 19:45 58 mg/dL (40-59) 09/04/18 19:45 2.41 % 09/04/18 19:45 50 units/L (13-60) 09/05/18 10:00 Hepatitis A IgM Ab Non-reactive (NonReactive) 09/05/18 11:31 Hep Bs Antigen Non-reactive (Negative) 09/05/18 11:31 Hep B Core IgM Ab Non-reactive (NonReactive) 09/05/18 11:31 Non-reactive (NonReactive) 09/05/18 11:31 Active Medications - Current Medications Current Medications: Generic Name Dose Route Start Last Admin Trade Name Freq PRN Reason Stop Dose Admin Acetaminophen 650 mg 09/04/18 23:44 Tylenol PO Q4H PRN Pain MILD(1-3)/Fever >100.5/STARK Levofloxacin/Dextrose 250 mg in 50 mls @ 50 mls/hr 09/05/18 10:00 09/05/18 10:19 Levaquin 250mg/50ml IV 50 mls/hr Q24HR [facility] Administration Protocol Sodium Chloride 100 mls @ 999 mls/hr 09/05/18 11:25 Nacl 0.9% IV MARGARET PRN Hypotension Morphine Sulfate 2 mg 09/04/18 23:44 09/05/18 05:48 Morphine IV 2 mg Q4H PRN Administration Pain, Moderate (4-6) Ondansetron HCl 4 mg 09/04/18 23:44 09/05/18 23:15 Zofran IV 4 mg Q8H PRN Administration Nausea And Vomiting Pantoprazole Sodium 40 mg 09/04/18 23:45 09/05/18 22:26 Protonix IV 40 mg BID [facility] Administration Sodium Chloride 10 ml 09/05/18 10:00 09/05/18 22:26 Sodium Chloride Flush Syringe 10 Ml IV 10 ml BID [facility] Administration Sodium Chloride 10 ml 09/04/18 23:44 09/05/18 05:49 Sodium Chloride Flush Syringe 10 Ml IV 10 ml PRN PRN Administration LINE FLUSH
[2018-09-06] MEDS: LEVAQUIN 250MG/50ML 250 MG/50 ML BAG IV SCH (09:55)
[2018-09-06] MEDS: ZOFRAN IV PRN ×3 (09:55→23:55)
[2018-09-06] MEDS: PROTONIX IV SCH ×2 (09:55→22:02)
[2018-09-06] MEDS: SODIUM CHLORIDE FLUSH SYRINGE 10 ML IV SCH ×2 (10:16→22:02)
--- NOTE | 2018-09-06 11:53 | Gastroenterology Progress Note ---
Assessment and Plan Patient still with severe symptoms, but with severe hypocalcemia so cannot pursue EGD today. Getting lytes repleted, will pursue EGD tomorrow The Differential diagnosis includes PUD, HPylori, etc, also in Ddx is biliary source so if EGD is neg then will pursue biliary evaluation. Follow up stool studies given diarrhea on admission - Patient Problems (1) Generalized abdominal pain Current Visit: Yes Status: Acute (2) Nausea & vomiting Current Visit: Yes Status: Acute (3) Diarrhea Current Visit: Yes Status: Acute Subjective Date of service: 09/06/18 Principal diagnosis: Abd pain, N/V Interval history: Patient reports currently when I examined him still with abdominal pain that was diffuse, gradual, started off mild but is now severe. Sharp, better with meds, worse with eating, associated with N/V. Objective - Constitutional Vitals: Temp Pulse Resp BP Pulse Ox 98.2 F 84 18 134/78 100 09/06/18 07:32 09/06/18 07:32 09/06/18 07:32 09/06/18 07:32 09/06/18 07:32 General appearance: other (lethargic) - EENT Eyes: other (no scleral icterus) ENT: hearing intact - Neck Neck: supple - Respiratory Respiratory effort: normal - Cardiovascular Heart Sounds: Present: S1 & S2 - Gastrointestinal General gastrointestinal: Present: soft, tender - Labs CBC & Chem 7: 09/06/18 05:08 09/06/18 05:08 Labs: Laboratory Results - last 24 hr 09/05/18 09/05/18 09/06/18 10:00 11:31 05:08 WBC 3.8 L RBC 3.59 L Hgb 10.5 L Hct 31.6 L MCV 88 MCH 29 MCHC 33 RDW 18.7 H Plt Count 163 Lymph % (Auto) 34.0 [place] % (Auto) 14.3 H Eos % (Auto) 1.6 Baso % (Auto) 0.3 Lymph # 1.3 [place] # 0.5 Eos # 0.1 Baso # 0.0 Seg Neutrophils % 49.8 Seg Neutrophils # 1.9 Sodium Potassium Chloride Carbon Dioxide Anion Gap BUN Creatinine Estimated GFR BUN/Creatinine Ratio Glucose Calcium Lipase 50 Hepatitis A IgM Ab Non-reactive Hep Bs Antigen Non-reactive Hep B Core IgM Ab Non-reactive Hepatitis C Antibody Non-reactive 09/06/18 05:08 WBC RBC Hgb Hct MCV MCH MCHC RDW Plt Count Lymph % (Auto) [place] % (Auto) Eos % (Auto) Baso % (Auto) Lymph # [place] # Eos # Baso # Seg Neutrophils % Seg Neutrophils # Sodium 142 Potassium 4.1 D Chloride 99.6 Carbon Dioxide 23 D Anion Gap 24 BUN 64 H Creatinine 13.5 H Estimated GFR 5 BUN/Creatinine Ratio 5 Glucose 90 Calcium 5.3 L* Lipase Hepatitis A IgM Ab Hep Bs Antigen Hep B Core IgM Ab Hepatitis C Antibody
[2018-09-06] MEDS: MORPHINE IV PRN (16:06)
--- NOTE | 2018-09-06 17:06 | Progress Note ---
Assessment and Plan - Patient Problems (1) ESRD on dialysis Current Visit: No Status: Chronic Plan to address problem: ESRD on dialysis - Will continue dialysis - TTS schedule for now (2) Abdominal pain Current Visit: Yes Status: Acute Plan to address problem: Abdominal pain - CT without overt cause of pain . - GI evaluation (3) Anemia Current Visit: No Status: Chronic Plan to address problem: Mild Anemia : hb: 10.5g/dl 2/2 renal failure monitor CBC. (4) HTN (hypertension) Current Visit: No Status: Chronic Qualifiers: Hypertension type: unspecified Qualified Code(s): I10 - Essential (primary) hypertension Plan to address problem: HTN: controlled continue current meds. (5) Hypocalcemia Current Visit: Yes Status: Acute Plan to address problem: Hypocalcemia : asymptomatic severe will give calcium gluconate 1gram x1 . Subjective Interval history: 63 year old with ESRD on hemodialysis TTS admitted with abdominal pain found to have hyperkalemia . Last dialysis was Thursday c/o cramping has severe abdominal pain this am CT abdomen on admission reports darks stools denies any hematochezia has had some nausea. Objective - Vital Signs Vital signs: Vital Signs - 12hr 09/06/18 07:32 Temperature 98.2 F Pulse Rate 84 Respiratory 18 Rate Blood Pressure 134/78 O2 Sat by Pulse 100 Oximetry - General Appearance General appearance: well-developed, well-nourished EENT: ATNC, PERRL Neck: no JVD Respiratory: Present: Clear to Ascultation Cardiology: regular, S1S2 Gastrointestinal: tenderness, guarding Integumentary: no rash Neurologic: alert and oriented x3, CN 3-12 intact Psychiatric: mood/affect appropriate - Lab 09/06/18 05:08 09/06/18 05:08 Most recent lab results Calcium 5.3 mg/dL (8.4-10.2) L* 09/06/18 05:08 - Imaging CT scan - abdomen: report reviewed (I reviewed CT abdomen report no findings. ) Medications & Allergies - Medications Allergies/Adverse Reactions: Allergies No Known Allergies Allergy (Verified 09/04/18 19:38) Home Medications: Home Medications Medication Instructions Recorded Confirmed Last Taken Type Cefuroxime Axetil [Ceftin] 500 mg PO Q48H #3 ml 12/23/17 09/04/18 Unknown Rx Aspirin EC 81 mg PO QDAY #30 tablet. 01/29/18 09/04/18 Unknown Rx AtorvaSTATin [Lipitor] 20 mg PO QHS #30 tablet 01/29/18 09/04/18 Unknown Rx Carvedilol [Coreg] 12.5 mg PO BID #30 tablet 01/29/18 09/04/18 Unknown Rx Lisinopril [Zestril TAB] 40 mg PO QDAY #30 tablet 01/29/18 09/04/18 Unknown Rx NIFEdipine [Nifedipine ER] 30 mg PO DAILY #30 tablet.er 01/29/18 09/04/18 Unknown Rx Omeprazole 20 mg PO DAILY #30 tablet. 01/29/18 09/04/18 Unknown Rx Sevelamer Carbonate [Renvela] 800 mg PO DAILY #30 tablet 01/29/18 09/04/18 Unknown Rx Tamsulosin [Flomax] 1 cap PO DAILY #30 capsule 01/29/18 09/04/18 Unknown Rx oxyCODONE /ACETAMINOPHEN [Percocet 1 tab PO Q4HR #10 tab 01/29/18 09/04/18 Unknown Rx 5/325] Active Medications: Generic Name Dose Route Start Last Admin Trade Name Freq PRN Reason Stop Dose Admin Acetaminophen 650 mg 09/04/18 23:44 Tylenol PO Q4H PRN Pain MILD(1-3)/Fever >100.5/STARK Sodium Chloride 100 mls @ 999 mls/hr 09/05/18 11:25 Nacl 0.9% IV MARGARET PRN Hypotension Levofloxacin/Dextrose 500 mg in 100 mls @ 100 mls/hr 09/08/18 10:00 Levaquin 500mg/100ml IV Q48H BRANDEE Protocol Morphine Sulfate 2 mg 09/04/18 23:44 09/06/18 16:06 Morphine IV 2 mg Q4H PRN Administration Pain, Moderate (4-6) Ondansetron HCl 4 mg 09/04/18 23:44 09/06/18 16:06 Zofran IV 4 mg Q8H PRN Administration Nausea And Vomiting Pantoprazole Sodium 40 mg 09/04/18 23:45 09/06/18 09:55 Protonix IV 40 mg BID BRANDEE Administration Sodium Chloride 10 ml 09/05/18 10:00 09/06/18 10:16 Sodium Chloride Flush Syringe 10 Ml IV 10 ml BID BRANDEE Administration Sodium Chloride 10 ml 09/04/18 23:44 09/05/18 05:49 Sodium Chloride Flush Syringe 10 Ml IV 10 ml PRN PRN Administration LINE FLUSH
[2018-09-06] MEDS ORDERED: CALCIUM GLUCONATE 1,000 MG in NACL 0.9% 100 ML IV ONE (17:30)
[2018-09-06 22:24] LABS: Calcium 5.3 mg/dL (8.4-10.2)
[2018-09-06] MEDS: COREG PO SCH ×2 (23:55→23:57)
[2018-09-07 06:35] LABS: Hematocrit 34.5 % (35.5-45.6); Hemoglobin 11.4 gm/dl (11.8-15.2); Mean Corpuscular HGB Conc 33 % (32-34); Mean Corpuscular Volume 88 fl (84-94); Platelet Count 171 K/mm3 (140-440); Red Blood Count 3.93 M/mm3 (3.65-5.03); Red Cell Distribution Width 18.2 % (13.2-15.2)
[2018-09-07 07:14] LABS: Calcium 5.3 mg/dL (8.4-10.2)
--- NOTE | 2018-09-07 08:25 | Gastroenterology Progress Note ---
Assessment and Plan Patient still with severe symptoms, but again today with severe hypocalcemia so cannot pursue EGD today. Please aggressively replete the hypocalcemia, once this is resolved I can safely pursue EGD (tentatively for tomorrow) The Differential diagnosis includes PUD, HPylori, etc, also in Ddx is biliary source so if EGD is neg then will pursue biliary evaluation. Follow up stool studies given diarrhea on admission - Patient Problems (1) Generalized abdominal pain Current Visit: Yes Status: Acute (2) Nausea & vomiting Current Visit: Yes Status: Acute (3) Diarrhea Current Visit: Yes Status: Resolved Subjective Date of service: 09/07/18 Principal diagnosis: Abd pain, N/V Interval history: Patient reports currently when I examined him still with abdominal pain that was diffuse, gradual, started off mild but is now severe. Sharp, better with meds, worse with eating, associated with N/V. He vomited at least twice so far (Seen during dialysis) Objective - Constitutional Vitals: Temp Pulse Resp BP Pulse Ox 97.9 F 92 H 18 150/102 94 09/07/18 07:56 09/07/18 07:56 09/07/18 07:56 09/07/18 07:56 09/07/18 07:56 General appearance: other (uncomfortable from nausea) - EENT Eyes: other (no scleral icterus) ENT: hearing intact - Respiratory Respiratory effort: normal - Gastrointestinal General gastrointestinal: Present: soft, tender - Labs CBC & Chem 7: 09/07/18 05:21 09/07/18 05:21 Labs: Laboratory Results - last 24 hr 09/06/18 09/07/18 09/07/18 21:10 05:21 05:21 WBC 3.9 L RBC 3.93 Hgb 11.4 L Hct 34.5 L MCV 88 MCH 29 MCHC 33 RDW 18.2 H Plt Count 171 Sodium 141 143 Potassium 4.8 4.6 Chloride 99.7 100.2 Carbon Dioxide 23 22 Anion Gap 23 25 BUN 58 H 59 H Creatinine 15.5 H 16.7 H Estimated GFR 4 4 BUN/Creatinine Ratio 4 4 Glucose 100 95 Calcium 5.3 L* 5.3 L* Phosphorus 5.80 H Magnesium 1.90
[2018-09-07] MEDS ORDERED: CALCIUM GLUCONATE 2,000 MG in NACL 0.9% 100 ML IV NR (10:00)
[2018-09-07] MEDS: ZOFRAN IV PRN (11:00)
[2018-09-07] MEDS: PROTONIX IV SCH ×2 (14:52→21:41)
[2018-09-07] MEDS: SODIUM CHLORIDE FLUSH SYRINGE 10 ML IV SCH ×2 (15:07→21:41)
[2018-09-07] MEDS: COREG PO SCH ×2 (15:21→21:40)
[2018-09-07] MEDS: RENVELA PO SCH (15:23)
[2018-09-07] MEDS: FLOMAX PO SCH (15:26)
[2018-09-07] MEDS ORDERED: CALCIUM GLUCONATE 2,000 MG in NACL 0.9% 100 ML IV ONE (16:00)
--- NOTE | 2018-09-07 16:25 | Progress Note ---
Assessment and Plan - Patient Problems (1) ESRD on dialysis Current Visit: No Status: Chronic Plan to address problem: ESRD on dialysis - Will continue dialysis - TTS schedule for now (2) Abdominal pain Current Visit: Yes Status: Acute Plan to address problem: Abdominal pain - CT without overt cause of pain . - GI evaluation (3) Anemia Current Visit: No Status: Chronic Plan to address problem: Mild Anemia : hb: 10.5g/dl 2/2 renal failure monitor CBC. (4) HTN (hypertension) Current Visit: No Status: Chronic Qualifiers: Hypertension type: unspecified Qualified Code(s): I10 - Essential (primary) hypertension Plan to address problem: HTN: controlled continue current meds. (5) Hypocalcemia Current Visit: Yes Status: Acute Plan to address problem: Hypocalcemia : asymptomatic received calcium gluconate 1gram x1 . will use high calcium bath . Subjective Principal diagnosis: Abd pain, N/V Interval history: 63 year old with ESRD on hemodialysis TTS admitted with abdominal pain found to have hyperkalemia . Last dialysis was Thursday c/o cramping Still having some nausea and vomiting today I attest I saw the patient on hemodialysis No fevers or chills Objective - Vital Signs Vital signs: Vital Signs - 12hr 09/07/18 09/07/18 09/07/18 04:32 07:56 09:10 Temperature 98.0 F 97.9 F 97.9 F Pulse Rate 81 92 H 82 Pulse Rate [ From Monitor] Pulse Rate [ Left Radial] Pulse Rate [ Right Radial] Respiratory 18 18 18 Rate Blood Pressure 149/98 150/102 151/100 O2 Sat by Pulse 98 94 Oximetry 09/07/18 09/07/18 09/07/18 09:20 09:30 09:45 Temperature Pulse Rate 84 82 78 Pulse Rate [ From Monitor] Pulse Rate [ Left Radial] Pulse Rate [ Right Radial] Respiratory Rate Blood Pressure 156/99 154/96 143/82 O2 Sat by Pulse Oximetry 09/07/18 09/07/18 09/07/18 10:00 10:15 10:30 Temperature Pulse Rate 75 73 72 Pulse Rate [ 92 H From Monitor] Pulse Rate [ 92 H Left Radial] Pulse Rate [ 92 H Right Radial] Respiratory 18 Rate Blood Pressure 143/83 138/82 150/83 O2 Sat by Pulse 94 Oximetry 09/07/18 09/07/18 09/07/18 10:45 11:00 11:15 Temperature Pulse Rate 72 81 88 Pulse Rate [ From Monitor] Pulse Rate [ Left Radial] Pulse Rate [ Right Radial] Respiratory Rate Blood Pressure 153/86 160/92 166/91 O2 Sat by Pulse Oximetry 09/07/18 09/07/18 09/07/18 11:17 11:30 11:45 Temperature Pulse Rate 76 72 Pulse Rate [ From Monitor] Pulse Rate [ Left Radial] Pulse Rate [ Right Radial] Respiratory Rate Blood Pressure 164/92 163/91 O2 Sat by Pulse 97 Oximetry 09/07/18 09/07/18 09/07/18 12:00 12:15 12:30 Temperature Pulse Rate 81 83 77 Pulse Rate [ From Monitor] Pulse Rate [ Left Radial] Pulse Rate [ Right Radial] Respiratory Rate Blood Pressure 164/92 174/86 171/96 O2 Sat by Pulse Oximetry 09/07/18 09/07/18 09/07/18 12:45 13:00 13:15 Temperature Pulse Rate 77 75 81 Pulse Rate [ From Monitor] Pulse Rate [ Left Radial] Pulse Rate [ Right Radial] Respiratory Rate Blood Pressure 173/88 135/63 168/87 O2 Sat by Pulse Oximetry 09/07/18 13:32 Temperature Pulse Rate 71 Pulse Rate [ From Monitor] Pulse Rate [ Left Radial] Pulse Rate [ Right Radial] Respiratory Rate Blood Pressure 169/89 O2 Sat by Pulse Oximetry - General Appearance General appearance: well-developed, well-nourished EENT: ATNC, PERRL, mucous membranes moist Neck: no JVD Respiratory: Present: Clear to Ascultation Cardiology: regular, S1S2 Gastrointestinal: normal, normoactive bowel sounds, tenderness Integumentary: no rash Neurologic: alert and oriented x3, CN 3-12 intact Psychiatric: mood/affect appropriate - Lab 09/07/18 05:21 09/07/18 05:21 Most recent lab results Calcium 5.3 mg/dL (8.4-10.2) L* 09/07/18 05:21 Phosphorus 5.80 mg/dL (2.5-4.5) H 09/07/18 05:21 Magnesium 1.90 mg/dL (1.7-2.3) 09/07/18 05:21 Medications & Allergies - Medications Allergies/Adverse Reactions: Allergies No Known Allergies Allergy (Verified 09/04/18 19:38) Home Medications: Home Medications Medication Instructions Recorded Confirmed Last Taken Type Cefuroxime Axetil [Ceftin] 500 mg PO Q48H #3 ml 12/23/17 09/04/18 Unknown Rx Aspirin EC 81 mg PO QDAY #30 tablet. 01/29/18 09/04/18 Unknown Rx AtorvaSTATin [Lipitor] 20 mg PO QHS #30 tablet 01/29/18 09/04/18 Unknown Rx Carvedilol [Coreg] 12.5 mg PO BID #30 tablet 01/29/18 09/04/18 Unknown Rx Lisinopril [Zestril TAB] 40 mg PO QDAY #30 tablet 01/29/18 09/04/18 Unknown Rx NIFEdipine [Nifedipine ER] 30 mg PO DAILY #30 tablet.er 01/29/18 09/04/18 Unknown Rx Omeprazole 20 mg PO DAILY #30 tablet. 01/29/18 09/04/18 Unknown Rx Sevelamer Carbonate [Renvela] 800 mg PO DAILY #30 tablet 01/29/18 09/04/18 Unknown Rx Tamsulosin [Flomax] 1 cap PO DAILY #30 capsule 01/29/18 09/04/18 Unknown Rx oxyCODONE /ACETAMINOPHEN [Percocet 1 tab PO Q4HR #10 tab 01/29/18 09/04/18 Unknown Rx 5/325] Active Medications: Generic Name Dose Route Start Last Admin Trade Name Freq PRN Reason Stop Dose Admin Acetaminophen 650 mg 09/04/18 23:44 Tylenol PO Q4H PRN Pain MILD(1-3)/Fever >100.5/STARK Atorvastatin Calcium 20 mg 09/07/18 22:00 Lipitor PO QHS BRANDEE Carvedilol 12.5 mg 09/06/18 23:45 09/06/18 23:57 Coreg PO Not Given BID [facility] Sodium Chloride 100 mls @ 999 mls/hr 09/05/18 11:25 Nacl 0.9% IV MARGARET PRN Hypotension Levofloxacin/Dextrose 500 mg in 100 mls @ 100 mls/hr 09/08/18 10:00 Levaquin 500mg/100ml IV Q48H [facility] Protocol Morphine Sulfate 2 mg 09/04/18 23:44 09/06/18 16:06 Morphine IV 2 mg Q4H PRN Administration Pain, Moderate (4-6) Ondansetron HCl 4 mg 09/04/18 23:44 09/07/18 11:00 Zofran IV 4 mg Q8H PRN Administration Nausea And Vomiting Pantoprazole Sodium 40 mg 09/04/18 23:45 09/07/18 14:52 Protonix IV 40 mg BID BRANDEE Administration Sevelamer Carbonate 800 mg 09/07/18 08:00 09/07/18 15:23 Renvela PO 800 mg DAILY@0800 BRANDEE Administration Sodium Chloride 10 ml 09/05/18 10:00 09/07/18 15:07 Sodium Chloride Flush Syringe 10 Ml IV 10 ml BID BRANDEE Administration Sodium Chloride 10 ml 09/04/18 23:44 09/05/18 05:49 Sodium Chloride Flush Syringe 10 Ml IV 10 ml PRN PRN Administration LINE FLUSH Tamsulosin HCl 0.4 mg 09/07/18 10:00 09/07/18 15:26 Flomax PO 0.4 mg DAILY BRANDEE Administration
--- NOTE | 2018-09-07 18:05 | Progress Note ---
Assessment and Plan - Patient Problems (1) Hypocalcemia Current Visit: Yes Status: Acute Plan to address problem: Severe hypocalcemia. We'll give 2000 mg today. Recheck this afternoon to see if we need to give an additional word of calcium. (2) Abdominal pain Current Visit: Yes Status: Acute Plan to address problem: Still not clear exactly etiology of abdominal pain. Await EGD. Could be viral gastroenteritis versus peptic ulcer disease. CT scan unremarkable with no clear etiology of patient's abdominal pain. Has now somewhat improved. Patient does not have any nausea or vomiting diarrhea has also improved. (3) Diarrhea Current Visit: Yes Status: Resolved (4) Fluid overload Current Visit: Yes Status: Acute Plan to address problem: Corrected with hemodialysis. Patient received hemodialysis today (5) Hyperkalemia Current Visit: Yes Status: Acute Plan to address problem: Also corrected with hemodialysis. Follow-up chemistries. (6) Nausea & vomiting Current Visit: Yes Status: Acute History Interval history: Patient abdominal pain better. He is able to talk on the phone without much discomfort. Patient does not have any rebound or guarding. No nausea or vomit ing. Unable to perform EGD secondary to Severe hypocalcemia. Patient tolerated hemodialysis well today Hospitalist Physical - Constitutional Vitals: Temp Pulse Resp BP Pulse Ox 97.9 F 94 H 18 162/90 97 09/07/18 09:10 09/07/18 15:21 09/07/18 10:00 09/07/18 15:21 09/07/18 11:17 General appearance: Present: no acute distress - EENT Eyes: Present: PERRL, EOM intact ENT: hearing intact, clear oral mucosa, dentition normal - Neck Neck: Present: supple, normal ROM - Respiratory Respiratory: bilateral: CTA - Cardiovascular Rhythm: regular - Extremities Extremities: no ischemia, pulses symmetrical, No edema, normal temperature, normal color, Full ROM - Abdominal General gastrointestinal: soft, tender, non-distended, hypoactive bowel sounds - Integumentary Integumentary: Present: clear, warm, dry - Psychiatric Psychiatric: appropriate mood/affect, intact judgment & insight, memory intact - Neurologic Neurologic: CNII-XII intact, moves all extremities Results - Labs CBC & Chem 7: 09/07/18 05:21 09/07/18 05:21 Labs: Laboratory Last Values WBC 3.9 K/mm3 (4.5-11.0) L 09/07/18 05:21 RBC 3.93 M/mm3 (3.65-5.03) 09/07/18 05:21 Hgb 11.4 gm/dl (11.8-15.2) L 09/07/18 05:21 Hct 34.5 % (35.5-45.6) L 09/07/18 05:21 MCV 88 fl (84-94) 09/07/18 05:21 MCH 29 pg (28-32) 09/07/18 05:21 MCHC 33 % (32-34) 09/07/18 05:21 RDW 18.2 % (13.2-15.2) H 09/07/18 05:21 Plt Count 171 K/mm3 (140-440) 09/07/18 05:21 Lymph % (Auto) 34.0 % (13.4-35.0) 09/06/18 05:08 [place] % (Auto) 14.3 % (0.0-7.3) H 09/06/18 05:08 Eos % (Auto) 1.6 % (0.0-4.3) 09/06/18 05:08 Baso % (Auto) 0.3 % (0.0-1.8) 09/06/18 05:08 Lymph # 1.3 K/mm3 (1.2-5.4) 09/06/18 05:08 [place] # 0.5 K/mm3 (0.0-0.8) 09/06/18 05:08 Eos # 0.1 K/mm3 (0.0-0.4) 09/06/18 05:08 Baso # 0.0 K/mm3 (0.0-0.1) 09/06/18 05:08 Seg Neutrophils % 49.8 % (40.0-70.0) 09/06/18 05:08 Seg Neutrophils # 1.9 K/mm3 (1.8-7.7) 09/06/18 05:08 Sodium 143 mmol/L (137-145) 09/07/18 05:21 Potassium 4.6 mmol/L (3.6-5.0) 09/07/18 05:21 Chloride 100.2 mmol/L (98-107) 09/07/18 05:21 Carbon Dioxide 22 mmol/L (22-30) 09/07/18 05:21 25 mmol/L 09/07/18 05:21 BUN 59 mg/dL (9-20) H 09/07/18 05:21 16.7 mg/dL (0.8-1.5) H 09/07/18 05:21 Estimated GFR 4 ml/min 09/07/18 05:21 4 % 09/07/18 05:21 Glucose 95 mg/dL (75-100) 09/07/18 05:21 Lactic Acid 1.50 mmol/L (0.7-2.0) 09/05/18 03:41 Calcium 5.3 mg/dL (8.4-10.2) L* 09/07/18 05:21 Phosphorus 5.80 mg/dL (2.5-4.5) H 09/07/18 05:21 Magnesium 1.90 mg/dL (1.7-2.3) 09/07/18 05:21 1.20 mg/dL (0.1-1.2) 09/04/18 19:45 AST < 5 units/L (5-40) L 09/04/18 19:45 ALT 16 units/L (7-56) 09/04/18 19:45 222 units/L (35-129) H 09/04/18 19:45 571 units/L (55-170) H 09/05/18 10:00 CK-MB (CK-2) 4.6 ng/mL (0.0-4.0) H 09/05/18 10:00 CK-MB (CK-2) Rel Index 0.8 (0-4) 09/05/18 10:00 0.083 ng/mL (0.00-0.029) H 09/05/18 10:00 NT-Pro-B Natriuret Pep > 09021 pg/mL (0-900) H 09/04/18 21:30 6.9 g/dL (6.3-8.2) 09/04/18 19:45 3.8 g/dL (3.9-5) L 09/04/18 19:45 1.2 % 09/04/18 19:45 Triglycerides 149 mg/dL (2-149) 09/04/18 19:45 Cholesterol 140 mg/dL (50-199) 09/04/18 19:45 57 mg/dL (50-130) 09/04/18 19:45 58 mg/dL (40-59) 09/04/18 19:45 2.41 % 09/04/18 19:45 50 units/L (13-60) 09/05/18 10:00 Hepatitis A IgM Ab Non-reactive (NonReactive) 09/05/18 11:31 Hep Bs Antigen Non-reactive (Negative) 09/05/18 11:31 Hep B Core IgM Ab Non-reactive (NonReactive) 09/05/18 11:31 Non-reactive (NonReactive) 09/05/18 11:31 Active Medications - Current Medications Current Medications: Generic Name Dose Route Start Last Admin Trade Name Freq PRN Reason Stop Dose Admin Acetaminophen 650 mg 09/04/18 23:44 Tylenol PO Q4H PRN Pain MILD(1-3)/Fever >100.5/STARK Atorvastatin Calcium 20 mg 09/07/18 22:00 Lipitor PO QHS BRANDEE Carvedilol 12.5 mg 09/06/18 23:45 09/07/18 15:21 Coreg PO 12.5 mg BID [facility] Administration Sodium Chloride 100 mls @ 999 mls/hr 09/05/18 11:25 Nacl 0.9% IV MARGARET PRN Hypotension Levofloxacin/Dextrose 500 mg in 100 mls @ 100 mls/hr 09/08/18 10:00 Levaquin 500mg/100ml IV Q48H [facility] Protocol Morphine Sulfate 2 mg 09/04/18 23:44 09/06/18 16:06 Morphine IV 2 mg Q4H PRN Administration Pain, Moderate (4-6) Ondansetron HCl 4 mg 09/04/18 23:44 09/07/18 11:00 Zofran IV 4 mg Q8H PRN Administration Nausea And Vomiting Pantoprazole Sodium 40 mg 09/04/18 23:45 09/07/18 14:52 Protonix IV 40 mg BID BRANDEE Administration Sevelamer Carbonate 800 mg 09/07/18 08:00 09/07/18 15:23 Renvela PO 800 mg DAILY@0800 BRANDEE Administration Sodium Chloride 10 ml 09/05/18 10:00 09/07/18 15:07 Sodium Chloride Flush Syringe 10 Ml IV 10 ml BID BRANDEE Administration Sodium Chloride 10 ml 09/04/18 23:44 09/05/18 05:49 Sodium Chloride Flush Syringe 10 Ml IV 10 ml PRN PRN Administration LINE FLUSH Tamsulosin HCl 0.4 mg 09/07/18 10:00 09/07/18 15:26 Flomax PO 0.4 mg DAILY BRANDEE Administration Nutrition/Malnutrition Assess - Dietary Evaluation Nutrition/Malnutrition Findings: Nutrition Notes Start: 09/06/18 14:15 Freq: Status: Active Protocol: Document 09/07/18 14:49 RM (Rec: 09/07/18 14:53 RM [email or web address]) Nutrition Notes Initial or Follow up Brief Note Current Diet NPO Subjective/Other Information Pt NPO for EGD tomorrow. Pt not in room at time of visit. Per tech pt had N/V all day yesterday. Nutrition Intervention Follow-Up By: 09/08/18 Additional Comments Follow for diet advancement, MST assessment
[2018-09-07] MEDS ORDERED: NACL 0.9 (PRIMING MACHINE ONLY DIALYSIS) MC ONE (18:43)
[2018-09-07] MEDS: MORPHINE IV PRN (21:39)
[2018-09-08 05:59] LABS: Basophils % (Auto) 0.5 % (0.0-1.8); Eosinophils % (Auto) 1.2 % (0.0-4.3); Hematocrit 33.6 % (35.5-45.6); Hemoglobin 10.9 gm/dl (11.8-15.2); Lymphocytes # (Auto) 1.1 K/mm3 (1.2-5.4); Lymphocytes % (Auto) 32.2 % (13.4-35.0); Mean Corpuscular HGB Conc 33 % (32-34); Mean Corpuscular Volume 90 fl (84-94); Monocytes # (Auto) 0.5 K/mm3 (0.0-0.8); Monocytes % (Auto) 13.7 % (0.0-7.3); Platelet Count 185 K/mm3 (140-440); Red Blood Count 3.72 M/mm3 (3.65-5.03); Red Cell Distribution Width 18.3 % (13.2-15.2)
[2018-09-08 06:26] LABS: Albumin 3.2 g/dL (3.9-5)
[2018-09-08 06:29] LABS: Calcium 5.8 mg/dL (8.4-10.2)
[2018-09-08] MEDS ORDERED: WATER FOR IRRIG STERILE ONE (07:50)
[2018-09-08] MEDS ORDERED: WATER FOR IRRIG STERILE IR ONE (07:50)
[2018-09-08] MEDS ORDERED: XYLOCAINE MPF 2% ONE (08:00)
[2018-09-08] MEDS ORDERED: CALCIUM CHLORIDE IV ONE (08:43)
[2018-09-08] MEDS ORDERED: CALCIUM GLUCONATE 2,000 MG in NACL 0.9% 100 ML IV ONE (09:00)
[2018-09-08] MEDS ORDERED: DIPRIVAN 10 MG/ML IV ONE (09:11)
--- NOTE | 2018-09-08 09:11 | Anesthesia Consultation ---
Anesthesia Consult and Med Hx Date of service: 09/08/18 - Airway Anesthetic Teeth Evaluation: Poor ROM Head & Neck: Adequate Mental/Hyoid Distance: Adequate Mallampati Class: Class II Intubation Access Assessment: Probably Good - Pulmonary Exam CTA: No (scattered Rh, clears with cough) - Cardiac Exam Cardiac Exam: RRR - Pre-Operative Health Status ASA Pre-Surgery Classification: ASA4 Proposed Anesthetic Plan: MAC - Pulmonary Hx Smoking: No Hx Asthma: No Hx Respiratory Symptoms: No SOB: No COPD: No Home Oxygen Therapy: No Hx Pneumonia: Yes (3 years ago) Hx Sleep Apnea: No - Cardiovascular System Hx Hypertension: Yes Hx Coronary Artery Disease: Yes Hx Heart Attack/AMI: No Hx Angina: No Hx Percutaneous Transluminal Coronary Angioplasty (PTCA): No Hx Cardia Arrhythmia: No Hx Pacemaker: No Hx Internal Defibrillator: No Hx Valvular Heart Disease: No Hx Heart Murmur: No Hx Peripheral Vascular Disease: No - Central Nervous System Hx Neuromuscular Disorder: No Hx Seizures: No CVA: Yes (TIAs) Hx Back Pain: No Hx Psychiatric Problems: No - Gastrointestinal Hx Ulcer: No Hx Gastroesophageal Reflux Disease: No - Endocrine Hx Renal Disease: Yes (THURSDAY, THURSDAY AND THURSDAY) Hx End Stage Renal Disease: Yes Hx Cirrhosis: No Hx Liver Disease: No Hx Insulin Dependent Diabetes: No Hx Non-Insulin Dependent Diabetes: No Hx Thyroid Disease: No Hx Hypothyroidism: No Hx Hyperthyroidism: No - Hematic Hx Anemia: No Hx Sickle Cell Disease: No - Other Systems Hx Alcohol Use: No Hx Substance Use: No Hx Cancer: No Hx Obesity: No
--- NOTE | 2018-09-08 09:52 | Operative Report ---
Operative Report Operative Report: DOS: 09/08/18 SURGEON: Peter Duarte MD EGD WITH BIOPSY REPORT PREOPERATIVE DIAGNOSIS and POSTOPERATIVE DIAGNOSIS: Intractable N/V/Abd pain ESTIMATED BLOOD LOSS: minimal DESCRIPTION OF PROCEDURE: A high-resolution EGD scope was passed through the oropharynx, esophagus, stomach, and second portion of duodenum. The scope was carefully withdrawn. Retroflexion was performed in the stomach. At the end of the procedure, the scope was cleaned using normal technique. Vital signs monitored continuously throughout. SEDATION: Provided by Anesthesiology Services. COMPLICATIONS: None. FINDINGS: * No gross lesions second portion of the duodenum * Significant duodenitis of the bulb with edema and friability. No ulcers though. Biopsies were taken to rule out celiac disease. A total of 6 biopsies were taken, the first from the duodenal bulb, with each subsequent biopsies progressively distal with the last biopsy as distal as could be reached with the endoscope * Moderate atrophic gastritis with nodularity of the gastric antrum and body, Biopsies were taken to rule out H. Pylori infection. A total of 5 biopsies were taken, 2 from the antrum, 1 from the incisura, 2 from the body. 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
[2018-09-08] MEDS ORDERED: KINEVAC IV ONE ×2 (12:17→12:36)
--- NOTE | 2018-09-08 13:31 | Nuclear Medicine Report ---
NUCLEAR MEDICINE HEPATOBILIARY SCAN INDICATION / CLINICAL INFORMATION: intractable N/V/abd pain. TECHNIQUE: Radiotracer: Tc-99m mebrofenin (by IV): 5.5 mCi. Gallbladder Stimulant: Cholecystokinin (in mcg by IV): 1.34 COMPARISON: None available. FINDINGS: HEPATIC ACTIVITY: Normal. BILIARY ACTIVITY: Normal. GALLBLADDER ACTIVITY: Normal SMALL BOWEL ACTIVITY: Normal GALLBLADDER EJECTION FRACTION % (if calculated): 4% - Normal at 30 min with Cholecystokinin: >35% - Normal at 60 min with Ensure/Glucerna: >33% PATIENT SYMPTOM REPRODUCTION: No symptoms reported.. IMPRESSION: 1. Biliary obstruction: None. 2. Gallbladder ejection fraction: Below normal. Signer Name: Franklin Dunn MD Signed: 09/08/2018 1:27 PM Workstation Name: [id number]
[2018-09-08] MEDS: PROTONIX IV SCH ×2 (15:03→21:25)
[2018-09-08] MEDS: RENVELA PO SCH (15:04)
[2018-09-08] MEDS: LEVAQUIN 500MG/100ML 500 MG/100 ML BAG IV SCH (15:04)
[2018-09-08] MEDS: FLOMAX PO SCH (15:04)
[2018-09-08] MEDS: SODIUM CHLORIDE FLUSH SYRINGE 10 ML IV SCH ×2 (15:05→21:26)
[2018-09-08] MEDS: COREG PO SCH ×2 (15:34→21:24)
--- NOTE | 2018-09-08 17:01 | Progress Note ---
Assessment and Plan - Patient Problems (1) ESRD on dialysis Current Visit: No Status: Chronic Plan to address problem: ESRD on dialysis - Will continue dialysis - TTS schedule for now (2) Abdominal pain Current Visit: Yes Status: Acute Plan to address problem: Abdominal pain - CT without overt cause of pain . - EGD with duodenitis and gastritis. - GI evaluation (3) Anemia Current Visit: No Status: Chronic Plan to address problem: Mild Anemia : hb: 10.5g/dl 2/2 renal failure monitor CBC. (4) HTN (hypertension) Current Visit: No Status: Chronic Qualifiers: Hypertension type: unspecified Qualified Code(s): I10 - Essential (primary) hypertension Plan to address problem: HTN: controlled continue current meds. (5) Hypocalcemia Current Visit: Yes Status: Acute Plan to address problem: Hypocalcemia : asymptomatic received calcium gluconate 1gram x1 . will use high calcium bath . calcitriol 0.5mcg daily check Vitamin D level calcium carbonate bid. Subjective Principal diagnosis: Abd pain, N/V Interval history: 63 year old with ESRD on hemodialysis TTS admitted with abdominal pain found to have hyperkalemia . Last dialysis was Thursday c/o cramping Still having abdominal tenderness EGD with duodenitis and gastritis remains hypocalcemic. Objective - Vital Signs Vital signs: Vital Signs - 12hr 09/08/18 09/08/18 09/08/18 07:42 08:27 09:46 Temperature 98.8 F 98.8 F Pulse Rate 69 70 Pulse Rate [ Left Radial] Pulse Rate [ Right Radial] Respiratory 14 14 Rate Blood Pressure 132/58 151/61 O2 Sat by Pulse 97 95 99 Oximetry 09/08/18 09/08/18 09/08/18 10:00 10:01 10:16 Temperature Pulse Rate 71 69 Pulse Rate [ 82 Left Radial] Pulse Rate [ 82 Right Radial] Respiratory 18 15 14 Rate Blood Pressure 132/56 132/58 O2 Sat by Pulse 95 96 95 Oximetry - General Appearance General appearance: well-developed, well-nourished EENT: ATNC, PERRL, mucous membranes moist Neck: no JVD Respiratory: Present: Clear to Ascultation Cardiology: regular, S1S2 Gastrointestinal: normal, normoactive bowel sounds Integumentary: no rash Neurologic: CN 3-12 intact Musculoskeletal: deferred Psychiatric: mood/affect appropriate - Lab 09/08/18 05:24 07/24/19 05:24 Most recent lab results Calcium 5.8 mg/dL (8.4-10.2) L* 09/08/18 05:24 Phosphorus 5.80 mg/dL (2.5-4.5) H 09/07/18 05:21 Magnesium 1.90 mg/dL (1.7-2.3) 09/07/18 05:21 - Imaging Chest x-ray: image reviewed (I reviewed abdomen CT report with no acut findings. ) Medications & Allergies - Medications Allergies/Adverse Reactions: Allergies No Known Allergies Allergy (Verified 09/04/18 19:38) Home Medications: Home Medications Medication Instructions Recorded Confirmed Last Taken Type Cefuroxime Axetil [Ceftin] 500 mg PO Q48H #3 ml 12/23/17 09/04/18 Unknown Rx Aspirin EC 81 mg PO QDAY #30 tablet. 01/29/18 09/04/18 Unknown Rx AtorvaSTATin [Lipitor] 20 mg PO QHS #30 tablet 01/29/18 09/04/18 Unknown Rx Carvedilol [Coreg] 12.5 mg PO BID #30 tablet 01/29/18 09/04/18 Unknown Rx Lisinopril [Zestril TAB] 40 mg PO QDAY #30 tablet 01/29/18 09/04/18 Unknown Rx NIFEdipine [Nifedipine ER] 30 mg PO DAILY #30 tablet.er 01/29/18 09/04/18 Unknown Rx Omeprazole 20 mg PO DAILY #30 tablet. 01/29/18 09/04/18 Unknown Rx Sevelamer Carbonate [Renvela] 800 mg PO DAILY #30 tablet 01/29/18 09/04/18 Unknown Rx Tamsulosin [Flomax] 1 cap PO DAILY #30 capsule 01/29/18 09/04/18 Unknown Rx oxyCODONE /ACETAMINOPHEN [Percocet 1 tab PO Q4HR #10 tab 01/29/18 09/04/18 Unknown Rx 5/325] Active Medications: Generic Name Dose Route Start Last Admin Trade Name Freq PRN Reason Stop Dose Admin Acetaminophen 650 mg 09/04/18 23:44 Tylenol PO Q4H PRN Pain MILD(1-3)/Fever >100.5/STARK Atorvastatin Calcium 20 mg 09/07/18 22:00 09/07/18 21:40 Lipitor PO 20 mg QHS BRANDEE Administration Carvedilol 12.5 mg 09/06/18 23:45 09/07/18 21:40 Coreg PO 12.5 mg BID BRANDEE Administration Sodium Chloride 100 mls @ 999 mls/hr 09/05/18 11:25 Nacl 0.9% IV MARGARET PRN Hypotension Levofloxacin/Dextrose 500 mg in 100 mls @ 100 mls/hr 09/08/18 10:00 09/08/18 15:04 Levaquin 500mg/100ml IV 100 mls/hr Q48H BRANDEE Administration Protocol Morphine Sulfate 2 mg 09/04/18 23:44 09/07/18 21:39 Morphine IV 2 mg Q4H PRN Administration Pain, Moderate (4-6) Ondansetron HCl 4 mg 09/04/18 23:44 09/07/18 11:00 Zofran IV 4 mg Q8H PRN Administration Nausea And Vomiting Pantoprazole Sodium 40 mg 09/04/18 23:45 09/08/18 15:03 Protonix IV 40 mg BID BRANDEE Administration Sevelamer Carbonate 800 mg 09/07/18 08:00 09/08/18 15:04 Renvela PO 800 mg DAILY@0800 BRANDEE Administration Sodium Chloride 10 ml 09/05/18 10:00 09/08/18 15:05 Sodium Chloride Flush Syringe 10 Ml IV 10 ml BID BRANDEE Administration Sodium Chloride 10 ml 09/04/18 23:44 09/05/18 05:49 Sodium Chloride Flush Syringe 10 Ml IV 10 ml PRN PRN Administration LINE FLUSH Tamsulosin HCl 0.4 mg 09/07/18 10:00 09/08/18 15:04 Flomax PO 0.4 mg DAILY BRANDEE Administration
[2018-09-08] MEDS: ROCALTROL PO SCH (20:11)
--- NOTE | 2018-09-08 20:58 | Progress Note ---
Assessment and Plan - Patient Problems (1) Hypocalcemia Current Visit: Yes Status: Acute Plan to address problem: Severe hypocalcemia. We'll give 2000 mg today. Recheck this afternoon to see if we need to give an additional word of calcium. Patient remains hypocalcemic will give an additional 2000 AND gluconate today. Follow-up in a.m. (2) Abdominal pain Current Visit: Yes Status: Acute Plan to address problem: Abdominal pain has resolved will advance diet. CT scan did not show any evidence of possible etiology of abdominal pain. EGD showed duodenitis and gastritis but does not explain the severity of patient's pain and electrolyte abnormalities. Patient will obtain HIDA scan A for further evaluation. Biopsies have been taken and are pending. GI following (3) Diarrhea Current Visit: Yes Status: Resolved (4) Fluid overload Current Visit: Yes Status: Acute Plan to address problem: Corrected with hemodialysis. Patient received hemodialysis today patient does not have any further shortness of breath no edema. They're comfortable. Tolerating hemodialysis well. (5) Hyperkalemia Current Visit: Yes Status: Acute Plan to address problem: Also corrected with hemodialysis. Follow-up chemistries. (6) Nausea & vomiting Current Visit: Yes Status: Resolved History Interval history: Patient feels much better today. No nausea or vomiting today no diarrhea today. No abdominal pain. Patient status post EGD this a.m. We'll also have had a scan done this afternoon. Stable to advance diet. Hospitalist Physical - Constitutional Vitals: Temp Pulse Resp BP Pulse Ox 98.4 F 77 18 119/78 97 09/08/18 20:53 09/08/18 20:52 09/08/18 20:52 09/08/18 20:52 09/08/18 20:52 General appearance: Present: no acute distress - EENT Eyes: Present: PERRL, EOM intact. Absent: scleral icterus, conjunctival injection, exopthalmos ENT: hearing intact, clear oral mucosa, dentition normal, no oropharyngeal erythema, no poor dentition, no thrush - Neck Neck: Present: supple, normal ROM. Absent: enlarged thyroid, masses or JVD, cervical LAD - Respiratory Respiratory: bilateral: CTA - Cardiovascular Rhythm: regular - Extremities Extremities: no ischemia, pulses intact, pulses symmetrical, No edema, normal temperature Peripheral Pulses: within normal limits - Abdominal General gastrointestinal: soft, non-tender, non-distended, normal bowel sounds - Integumentary Integumentary: Present: clear, warm, dry - Psychiatric Psychiatric: appropriate mood/affect, intact judgment & insight, memory intact - Neurologic Neurologic: CNII-XII intact, moves all extremities Results - Labs CBC & Chem 7: 09/08/18 05:24 09/08/18 05:24 Labs: Laboratory Last Values WBC 3.4 K/mm3 (4.5-11.0) L 09/08/18 05:24 RBC 3.72 M/mm3 (3.65-5.03) 09/08/18 05:24 Hgb 10.9 gm/dl (11.8-15.2) L 09/08/18 05:24 Hct 33.6 % (35.5-45.6) L 09/08/18 05:24 MCV 90 fl (84-94) 09/08/18 05:24 MCH 29 pg (28-32) 09/08/18 05:24 MCHC 33 % (32-34) 09/08/18 05:24 RDW 18.3 % (13.2-15.2) H 09/08/18 05:24 Plt Count 185 K/mm3 (140-440) 09/08/18 05:24 Lymph % (Auto) 32.2 % (13.4-35.0) 09/08/18 05:24 Ralls % (Auto) 13.7 % (0.0-7.3) H 09/08/18 05:24 Eos % (Auto) 1.2 % (0.0-4.3) 09/08/18 05:24 Baso % (Auto) 0.5 % (0.0-1.8) 09/08/18 05:24 Lymph # 1.1 K/mm3 (1.2-5.4) L 09/08/18 05:24 Ralls # 0.5 K/mm3 (0.0-0.8) 09/08/18 05:24 Eos # 0.0 K/mm3 (0.0-0.4) 09/08/18 05:24 Baso # 0.0 K/mm3 (0.0-0.1) 09/08/18 05:24 Seg Neutrophils % 52.4 % (40.0-70.0) 09/08/18 05:24 Seg Neutrophils # 1.8 K/mm3 (1.8-7.7) 09/08/18 05:24 Sodium 140 mmol/L (137-145) 09/08/18 05:24 Potassium 4.4 mmol/L (3.6-5.0) 09/08/18 05:24 Chloride 99.1 mmol/L (98-107) 09/08/18 05:24 Carbon Dioxide 24 mmol/L (22-30) 09/08/18 05:24 21 mmol/L 09/08/18 05:24 BUN 30 mg/dL (9-20) H 09/08/18 05:24 9.8 mg/dL (0.8-1.5) H 09/08/18 05:24 Estimated GFR 7 ml/min 09/08/18 05:24 3 % 09/08/18 05:24 Glucose 105 mg/dL (75-100) H 09/08/18 05:24 Lactic Acid 1.50 mmol/L (0.7-2.0) 09/05/18 03:41 Calcium 5.8 mg/dL (8.4-10.2) L* 09/08/18 05:24 Phosphorus 5.80 mg/dL (2.5-4.5) H 09/07/18 05:21 Magnesium 1.90 mg/dL (1.7-2.3) 09/07/18 05:21 1.20 mg/dL (0.1-1.2) 09/08/18 05:24 AST 8 units/L (5-40) 09/08/18 05:24 ALT 12 units/L (7-56) 09/08/18 05:24 196 units/L (35-129) H 09/08/18 05:24 571 units/L (55-170) H 09/05/18 10:00 CK-MB (CK-2) 4.6 ng/mL (0.0-4.0) H 09/05/18 10:00 CK-MB (CK-2) Rel Index 0.8 (0-4) 09/05/18 10:00 0.083 ng/mL (0.00-0.029) H 09/05/18 10:00 NT-Pro-B Natriuret Pep > 50034 pg/mL (0-900) H 09/04/18 21:30 6.0 g/dL (6.3-8.2) L 09/08/18 05:24 3.2 g/dL (3.9-5) L 09/08/18 05:24 1.1 % 09/08/18 05:24 Triglycerides 149 mg/dL (2-149) 09/04/18 19:45 Cholesterol 140 mg/dL (50-199) 09/04/18 19:45 57 mg/dL (50-130) 09/04/18 19:45 58 mg/dL (40-59) 09/04/18 19:45 2.41 % 09/04/18 19:45 50 units/L (13-60) 09/05/18 10:00 Hepatitis A IgM Ab Non-reactive (NonReactive) 09/05/18 11:31 Hep Bs Antigen Non-reactive (Negative) 09/05/18 11:31 Hep B Core IgM Ab Non-reactive (NonReactive) 09/05/18 11:31 Non-reactive (NonReactive) 09/05/18 11:31 - Imaging and Cardiology MRI - abdomen: other (HIDA scan) Venous US: image reviewed (EGD) Active Medications - Current Medications Current Medications: Generic Name Dose Route Start Last Admin Trade Name Freq PRN Reason Stop Dose Admin Acetaminophen 650 mg 09/04/18 23:44 Tylenol PO Q4H PRN Pain MILD(1-3)/Fever >100.5/STARK Atorvastatin Calcium 20 mg 09/07/18 22:00 09/07/18 21:40 Lipitor PO 20 mg QHS BRANDEE Administration Calcitriol 0.5 mcg 09/08/18 17:00 09/08/18 20:11 Rocaltrol PO 0.5 mcg QDAY BRANDEE Administration Calcium Citrate 2 each 09/08/18 22:00 Citracal D 315mg-250 Units PO BID BRANDEE Carvedilol 12.5 mg 09/06/18 23:45 09/08/18 15:34 Coreg PO Not Given BID BRANDEE Sodium Chloride 100 mls @ 999 mls/hr 09/05/18 11:25 Nacl 0.9% IV MARGARET PRN Hypotension Levofloxacin/Dextrose 500 mg in 100 mls @ 100 mls/hr 09/08/18 10:00 09/08/18 15:04 Levaquin 500mg/100ml IV 100 mls/hr Q48H BRANDEE Administration Protocol Morphine Sulfate 2 mg 09/04/18 23:44 09/07/18 21:39 Morphine IV 2 mg Q4H PRN Administration Pain, Moderate (4-6) Ondansetron HCl 4 mg 09/04/18 23:44 09/07/18 11:00 Zofran IV 4 mg Q8H PRN Administration Nausea And Vomiting Pantoprazole Sodium 40 mg 09/04/18 23:45 09/08/18 15:03 Protonix IV 40 mg BID BRANDEE Administration Sevelamer Carbonate 800 mg 09/07/18 08:00 09/08/18 15:04 Renvela PO 800 mg DAILY@0800 BRANDEE Administration Sodium Chloride 10 ml 09/05/18 10:00 09/08/18 15:05 Sodium Chloride Flush Syringe 10 Ml IV 10 ml BID BRANDEE Administration Sodium Chloride 10 ml 09/04/18 23:44 09/05/18 05:49 Sodium Chloride Flush Syringe 10 Ml IV 10 ml PRN PRN Administration LINE FLUSH Tamsulosin HCl 0.4 mg 09/07/18 10:00 09/08/18 15:04 Flomax PO 0.4 mg DAILY BRANDEE Administration Nutrition/Malnutrition Assess - Dietary Evaluation Nutrition/Malnutrition Findings: Nutrition Notes Start: 09/06/18 14:15 Freq: Status: Active Protocol: Document 09/08/18 17:54 RM (Rec: 09/08/18 18:00 RM [id number]) Nutrition Notes Initial or Follow up Reassessment Current Diagnosis CKD (stage V CKD),Hypertension ,Heart Failure Other Pertinent Diagnosis On HD, Abdominal pain, Hematemesis, Sylvie-Deal tear, Gastroenteritis Current Diet Full liquid Labs/Tests Reviewed Pertinent Medications Zofran Height 5 ft 9 in Weight 67 kg Usual Body Weight 75 kg [place] Body Weight (kg) 72.72 BMI 21.8 Weight change and time frame 10.7% wt loss Subjective/Other Information NPO in place earlier today for EGD. Full liquid diet ordered later today. 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 Admitted to N/ V here but is able to keep down liquids. Pt stated that he does not like the full liquid diet. Noted lunch at bedside w/only pudding eaten. Stated UBW has always been 165 lbs. No temporal or orbital wasting . Percent of energy/protein needs met: 0%/0% Burn Absent Trauma Absent #1 Nutrition Diagnosis Inadequate oral intake Diagnosis Progress(for reassessment Continues documentation) Is patient on ventilator? No Is Patient Ambulatory and/or Out of Bed Yes REE-([facility]-ambulatory/OOB) [ [id number]] Calculation Used for Recommendations [facility] Additional Notes Pro needs 1.2-1.4g/k-97g/ day Fluid needs 1-1.5L/day Nutrition Intervention Change Diet Order: Diet advancement when medically feasible Add Supplement/Snack (indicate name/kcal Nepro 1 daily /protein ) Provides kCal: 425 Provides Protein (gm) 19 Goal #1 Advance diet to meet nutrient needs Anticipated Discharge Needs: Unable to identify at this time Follow-Up By: 09/10/18 Additional Comments Follow for PO and ONS intakes
[2018-09-08] MEDS: CITRACAL D 315MG-250 UNITS PO SCH (21:25)
--- NOTE | 2018-09-08 22:24 | Event Note ---
Date: 09/08/18 HIDA shows very low EF, I placed routine consult for Gen surg to eval for cholecystectomy as the severe biliary dyskinesia is a likely cause of the patient's symptoms
[2018-09-09] MEDS: RENVELA PO SCH (08:00)
--- NOTE | 2018-09-09 09:11 | Progress Note ---
Assessment and Plan - Patient Problems (1) ESRD on dialysis Current Visit: No Status: Chronic Plan to address problem: ESRD on dialysis - Will continue dialysis - TTS schedule for now -3.5Calcium bath for hypocalcemia (2) Abdominal pain Current Visit: Yes Status: Acute Plan to address problem: Abdominal pain - CT without overt cause of pain . - EGD with duodenitis and gastritis. - GI evaluation (3) Anemia Current Visit: No Status: Chronic Plan to address problem: Mild Anemia : hb: 10.5g/dl 2/2 renal failure monitor CBC. (4) HTN (hypertension) Current Visit: No Status: Chronic Qualifiers: Hypertension type: unspecified Qualified Code(s): I10 - Essential (primary) hypertension Plan to address problem: HTN: controlled continue current meds. (5) Hypocalcemia Current Visit: Yes Status: Acute Plan to address problem: Hypocalcemia : asymptomatic received calcium gluconate IV will use high calcium bath . calcitriol 0.5mcg daily check Vitamin D level calcium carbonate bid. Subjective Principal diagnosis: Abd pain, N/V Interval history: 63 year old with ESRD on hemodialysis TTS admitted with abdominal pain found to have hyperkalemia . Last dialysis was Thursday c/o cramping Still having abdominal tenderness denies any diarrhoea. s/p biliary scan EGD with duodenitis and gastritis Objective - Vital Signs Vital signs: Vital Signs - 12hr 09/08/18 09/08/18 09/08/18 21:56 23:46 23:47 Temperature 98.2 F Pulse Rate 77 Respiratory 18 Rate Blood Pressure 127/83 O2 Sat by Pulse 96 99 Oximetry 09/09/18 09/09/18 03:51 03:52 Temperature 98.2 F Pulse Rate 79 Respiratory 18 Rate Blood Pressure 124/84 O2 Sat by Pulse 99 Oximetry - General Appearance General appearance: well-developed, well-nourished EENT: ATNC, PERRL Neck: no JVD Respiratory: Present: Clear to Ascultation Cardiology: regular, S1S2 Gastrointestinal: normal, normoactive bowel sounds, tenderness Integumentary: no rash - Lab 09/08/18 05:24 09/08/18 05:24 Most recent lab results Calcium 5.8 mg/dL (8.4-10.2) L* 09/08/18 05:24 Phosphorus 5.80 mg/dL (2.5-4.5) H 09/07/18 05:21 Magnesium 1.90 mg/dL (1.7-2.3) 09/07/18 05:21 Medications & Allergies - Medications Allergies/Adverse Reactions: Allergies No Known Allergies Allergy (Verified 09/04/18 19:38) Home Medications: Home Medications Medication Instructions Recorded Confirmed Last Taken Type Cefuroxime Axetil [Ceftin] 500 mg PO Q48H #3 ml 12/23/17 09/04/18 Unknown Rx Aspirin EC 81 mg PO QDAY #30 tablet. 01/29/18 09/04/18 Unknown Rx AtorvaSTATin [Lipitor] 20 mg PO QHS #30 tablet 01/29/18 09/04/18 Unknown Rx Carvedilol [Coreg] 12.5 mg PO BID #30 tablet 01/29/18 09/04/18 Unknown Rx Lisinopril [Zestril TAB] 40 mg PO QDAY #30 tablet 01/29/18 09/04/18 Unknown Rx NIFEdipine [Nifedipine ER] 30 mg PO DAILY #30 tablet.er 01/29/18 09/04/18 Unknown Rx Omeprazole 20 mg PO DAILY #30 tablet. 01/29/18 09/04/18 Unknown Rx Sevelamer Carbonate [Renvela] 800 mg PO DAILY #30 tablet 01/29/18 09/04/18 Unknown Rx Tamsulosin [Flomax] 1 cap PO DAILY #30 capsule 01/29/18 09/04/18 Unknown Rx oxyCODONE /ACETAMINOPHEN [Percocet 1 tab PO Q4HR #10 tab 01/29/18 09/04/18 Unknown Rx 5/325] Active Medications: Generic Name Dose Route Start Last Admin Trade Name Freq PRN Reason Stop Dose Admin Acetaminophen 650 mg 09/04/18 23:44 Tylenol PO Q4H PRN Pain MILD(1-3)/Fever >100.5/STARK Atorvastatin Calcium 20 mg 09/07/18 22:00 09/08/18 21:25 Lipitor PO 20 mg QHS BRANDEE Administration Calcitriol 0.5 mcg 09/08/18 17:00 09/08/18 20:11 Rocaltrol PO 0.5 mcg QDAY BRANDEE Administration Calcium Citrate 2 each 09/08/18 22:00 09/08/18 21:25 Citracal D 315mg-250 Units PO 2 each BID BRANDEE Administration Carvedilol 12.5 mg 09/06/18 23:45 09/08/18 21:24 Coreg PO Not Given BID BRANDEE Sodium Chloride 100 mls @ 999 mls/hr 09/05/18 11:25 Nacl 0.9% IV MARGARET PRN Hypotension Levofloxacin/Dextrose 500 mg in 100 mls @ 100 mls/hr 09/08/18 10:00 09/08/18 15:04 Levaquin 500mg/100ml IV 100 mls/hr Q48H BRANDEE Administration Protocol Morphine Sulfate 2 mg 09/04/18 23:44 09/07/18 21:39 Morphine IV 2 mg Q4H PRN Administration Pain, Moderate (4-6) Ondansetron HCl 4 mg 09/04/18 23:44 09/07/18 11:00 Zofran IV 4 mg Q8H PRN Administration Nausea And Vomiting Pantoprazole Sodium 40 mg 09/04/18 23:45 09/08/18 21:25 Protonix IV 40 mg BID BRANDEE Administration Sevelamer Carbonate 800 mg 09/07/18 08:00 09/08/18 15:04 Renvela PO 800 mg DAILY@0800 BRANDEE Administration Sodium Chloride 10 ml 09/05/18 10:00 09/08/18 21:26 Sodium Chloride Flush Syringe 10 Ml IV 10 ml BID BRANDEE Administration Sodium Chloride 10 ml 09/04/18 23:44 09/05/18 05:49 Sodium Chloride Flush Syringe 10 Ml IV 10 ml PRN PRN Administration LINE FLUSH Tamsulosin HCl 0.4 mg 09/07/18 10:00 09/08/18 15:04 Flomax PO 0.4 mg DAILY BRANDEE Administration
[2018-09-09] MEDS: COREG PO SCH ×2 (10:00→21:41)
--- NOTE | 2018-09-09 13:21 | Progress Note ---
Assessment and Plan Assessment and plan: Biliary dyskinesia. HIDA scan shows low EF. General surgery consultation for possible cholecystectomy. ESRD. Continue hemodialysis per nephrology. Gastritis/duodenitis. EGD completed on this hospitalization. Anemia of CKD. Continue to monitor CBC and transfuse for hemoglobin less than 7. Hypocalcemia. Nephrology to use high calcium bath with dialysis. Follow-up vitamin D level. History Interval history: No new issues overnight. Hospitalist Physical - Constitutional Vitals: Temp Pulse Resp BP Pulse Ox 98.2 F 70 18 119/62 99 09/09/18 10:34 09/09/18 13:00 09/09/18 10:34 09/09/18 13:00 09/09/18 03:51 General appearance: Present: no acute distress - EENT Eyes: Present: PERRL, EOM intact ENT: hearing intact, clear oral mucosa, dentition normal - Neck Neck: Present: supple, normal ROM - Respiratory Respiratory effort: normal Respiratory: bilateral: CTA - Cardiovascular Rhythm: regular Heart Sounds: Present: S1 & S2. Absent: gallop, rub - Extremities Extremities: no ischemia, No edema, Full ROM - Abdominal General gastrointestinal: soft, non-tender, non-distended, normal bowel sounds - Integumentary Integumentary: Present: clear, warm, dry - Neurologic Neurologic: CNII-XII intact, moves all extremities Results - Labs CBC & Chem 7: 09/08/18 05:24 09/08/18 05:24 Labs: Laboratory Last Values WBC 3.4 K/mm3 (4.5-11.0) L 09/08/18 05:24 RBC 3.72 M/mm3 (3.65-5.03) 09/08/18 05:24 Hgb 10.9 gm/dl (11.8-15.2) L 09/08/18 05:24 Hct 33.6 % (35.5-45.6) L 09/08/18 05:24 MCV 90 fl (84-94) 09/08/18 05:24 MCH 29 pg (28-32) 09/08/18 05:24 MCHC 33 % (32-34) 09/08/18 05:24 RDW 18.3 % (13.2-15.2) H 09/08/18 05:24 Plt Count 185 K/mm3 (140-440) 09/08/18 05:24 Lymph % (Auto) 32.2 % (13.4-35.0) 09/08/18 05:24 Letcher % (Auto) 13.7 % (0.0-7.3) H 09/08/18 05:24 Eos % (Auto) 1.2 % (0.0-4.3) 09/08/18 05:24 Baso % (Auto) 0.5 % (0.0-1.8) 09/08/18 05:24 Lymph # 1.1 K/mm3 (1.2-5.4) L 09/08/18 05:24 Letcher # 0.5 K/mm3 (0.0-0.8) 09/08/18 05:24 Eos # 0.0 K/mm3 (0.0-0.4) 09/08/18 05:24 Baso # 0.0 K/mm3 (0.0-0.1) 09/08/18 05:24 Seg Neutrophils % 52.4 % (40.0-70.0) 09/08/18 05:24 Seg Neutrophils # 1.8 K/mm3 (1.8-7.7) 09/08/18 05:24 Sodium 140 mmol/L (137-145) 09/08/18 05:24 Potassium 4.4 mmol/L (3.6-5.0) 09/08/18 05:24 Chloride 99.1 mmol/L (98-107) 09/08/18 05:24 Carbon Dioxide 24 mmol/L (22-30) 09/08/18 05:24 21 mmol/L 09/08/18 05:24 BUN 30 mg/dL (9-20) H 09/08/18 05:24 9.8 mg/dL (0.8-1.5) H 09/08/18 05:24 Estimated GFR 7 ml/min 09/08/18 05:24 3 % 09/08/18 05:24 Glucose 105 mg/dL (75-100) H 09/08/18 05:24 Lactic Acid 1.50 mmol/L (0.7-2.0) 09/05/18 03:41 Calcium 5.8 mg/dL (8.4-10.2) L* 09/08/18 05:24 2.6 mg/dL (4.8-5.6) L* 09/06/18 21:10 Phosphorus 5.80 mg/dL (2.5-4.5) H 09/07/18 05:21 Magnesium 1.90 mg/dL (1.7-2.3) 09/07/18 05:21 1.20 mg/dL (0.1-1.2) 09/08/18 05:24 AST 8 units/L (5-40) 09/08/18 05:24 ALT 12 units/L (7-56) 09/08/18 05:24 196 units/L (35-129) H 09/08/18 05:24 571 units/L (55-170) H 09/05/18 10:00 CK-MB (CK-2) 4.6 ng/mL (0.0-4.0) H 09/05/18 10:00 CK-MB (CK-2) Rel Index 0.8 (0-4) 09/05/18 10:00 0.083 ng/mL (0.00-0.029) H 09/05/18 10:00 NT-Pro-B Natriuret Pep > 90988 pg/mL (0-900) H 09/04/18 21:30 6.0 g/dL (6.3-8.2) L 09/08/18 05:24 3.2 g/dL (3.9-5) L 09/08/18 05:24 1.1 % 09/08/18 05:24 Triglycerides 149 mg/dL (2-149) 09/04/18 19:45 Cholesterol 140 mg/dL (50-199) 09/04/18 19:45 57 mg/dL (50-130) 09/04/18 19:45 58 mg/dL (40-59) 09/04/18 19:45 2.41 % 09/04/18 19:45 50 units/L (13-60) 09/05/18 10:00 Hepatitis A IgM Ab Non-reactive (NonReactive) 09/05/18 11:31 Hep Bs Antigen Non-reactive (Negative) 09/05/18 11:31 Hep B Core IgM Ab Non-reactive (NonReactive) 09/05/18 11:31 Non-reactive (NonReactive) 09/05/18 11:31 Active Medications - Current Medications Current Medications: Generic Name Dose Route Start Last Admin Trade Name Freq PRN Reason Stop Dose Admin Acetaminophen 650 mg 09/04/18 23:44 Tylenol PO Q4H PRN Pain MILD(1-3)/Fever >100.5/STARK Atorvastatin Calcium 20 mg 09/07/18 22:00 09/08/18 21:25 Lipitor PO 20 mg QHS BRANDEE Administration Calcitriol 0.5 mcg 09/08/18 17:00 09/08/18 20:11 Rocaltrol PO 0.5 mcg QDAY BRANDEE Administration Calcium Citrate 2 each 09/08/18 22:00 09/08/18 21:25 Citracal D 315mg-250 Units PO 2 each BID BRANDEE Administration Carvedilol 12.5 mg 09/06/18 23:45 09/08/18 21:24 Coreg PO Not Given BID BRANDEE Sodium Chloride 100 mls @ 999 mls/hr 09/05/18 11:25 Nacl 0.9% IV MARGARET PRN Hypotension Levofloxacin/Dextrose 500 mg in 100 mls @ 100 mls/hr 09/08/18 10:00 09/08/18 15:04 Levaquin 500mg/100ml IV 100 mls/hr Q48H BRANDEE Administration Protocol Morphine Sulfate 2 mg 09/04/18 23:44 09/07/18 21:39 Morphine IV 2 mg Q4H PRN Administration Pain, Moderate (4-6) Ondansetron HCl 4 mg 09/04/18 23:44 09/07/18 11:00 Zofran IV 4 mg Q8H PRN Administration Nausea And Vomiting Pantoprazole Sodium 40 mg 09/09/18 22:00 Protonix PO BID BRANDEE Sevelamer Carbonate 800 mg 09/07/18 08:00 09/08/18 15:04 Renvela PO 800 mg DAILY@0800 BRANDEE Administration Sodium Chloride 10 ml 09/05/18 10:00 09/08/18 21:26 Sodium Chloride Flush Syringe 10 Ml IV 10 ml BID BRANDEE Administration Sodium Chloride 10 ml 09/04/18 23:44 09/05/18 05:49 Sodium Chloride Flush Syringe 10 Ml IV 10 ml PRN PRN Administration LINE FLUSH Tamsulosin HCl 0.4 mg 09/07/18 10:00 09/08/18 15:04 Flomax PO 0.4 mg DAILY BRANDEE Administration Nutrition/Malnutrition Assess - Dietary Evaluation Nutrition/Malnutrition Findings: Nutrition Notes Start: 09/06/18 14:15 Freq: Status: Active Protocol: Document 09/08/18 17:54 RM (Rec: 09/08/18 18:00 RM [id number]) Nutrition Notes Initial or Follow up Reassessment Current Diagnosis CKD (stage V CKD),Hypertension ,Heart Failure Other Pertinent Diagnosis On HD, Abdominal pain, Hematemesis, Sylvie-Deal tear, Gastroenteritis Current Diet Full liquid Labs/Tests Reviewed Pertinent Medications Zofran Height 5 ft 9 in Weight 67 kg Usual Body Weight 75 kg [place]att Body Weight (kg) 72.72 BMI 21.8 Weight change and time frame 10.7% wt loss Subjective/Other Information NPO in place earlier today for EGD. Full liquid diet ordered later today. Pt stated that [employer] his appetite was poor and that he did not eat X 5 days counting today. Admitted to N/ V here but is able to keep down liquids. Pt stated that he does not like the full liquid diet. Noted lunch at bedside w/only pudding eaten. Stated UBW has always been 165 lbs. No temporal or orbital wasting . Percent of energy/protein needs met: 0%/0% Burn Absent Trauma Absent #1 Nutrition Diagnosis Inadequate oral intake Diagnosis Progress(for reassessment Continues documentation) Is patient on ventilator? No Is Patient Ambulatory and/or Out of Bed Yes REE-([facility]-ambulatory/OOB) [ [id number] [id number]] Calculation Used for Recommendations [facility] Additional Notes Pro needs 1.2-1.4g/k-97g/ day Fluid needs 1-1.5L/day Nutrition Intervention Change Diet Order: Diet advancement when medically feasible Add Supplement/Snack (indicate name/kcal Nepro 1 daily /protein ) Provides kCal: 425 Provides Protein (gm) 19 Goal #1 Advance diet to meet nutrient needs Anticipated Discharge Needs: Unable to identify at this time Follow-Up By: 09/10/18 Additional Comments Follow for PO and ONS intakes
--- NOTE | 2018-09-09 13:36 | Gastroenterology Progress Note ---
Assessment and Plan Patient with significant improvement in symptoms today. If tolerates diet and electrolytes normalize can discharge with outpatient followup with surgery. I will sign off, please call back for any questions or concerns - Patient Problems (1) Generalized abdominal pain Current Visit: Yes Status: Acute (2) Nausea & vomiting Current Visit: Yes Status: Resolved (3) Diarrhea Current Visit: Yes Status: Resolved Subjective Date of service: 09/09/18 Principal diagnosis: Abd pain, N/V Interval history: Patient reports currently when I examined him moderate improvement in symptoms, with only moderate abdominal pain that was diffuse, worse with eating, associated with mild N/V. He looks much better today than prior days Objective - Constitutional Vitals: Temp Pulse Resp BP Pulse Ox 98.2 F 70 18 119/62 99 09/09/18 10:34 09/09/18 13:00 09/09/18 10:34 09/09/18 13:00 09/09/18 03:51 General appearance: no acute distress - Respiratory Respiratory effort: normal - Gastrointestinal General gastrointestinal: Present: soft, other (mild TTP diffusely) - Labs CBC & Chem 7: 09/08/18 05:24 09/09/18 15:23 Labs: Laboratory Results - last 24 hr 09/06/18 21:10 Ionized Calcium 2.6 L*
[2018-09-09] MEDS: ROCALTROL PO SCH (14:33)
[2018-09-09] MEDS: SODIUM CHLORIDE FLUSH SYRINGE 10 ML IV SCH ×2 (14:33→21:42)
[2018-09-09] MEDS: CITRACAL D 315MG-250 UNITS PO SCH ×2 (14:33→21:41)
[2018-09-09] MEDS: FLOMAX PO SCH (14:33)
[2018-09-09] MEDS: PROTONIX IV SCH (14:35)
--- NOTE | 2018-09-09 14:55 | Consultation ---
History of Present Illness Consult date: 09/09/18 Reason for consult: abdominal pain Chief complaint: abd pain, n/v - History of present illness History of present illness: Patient is a 63-year-old male with a history of end-stage renal disease on hemodialysis, CHF, hypertension who presented to the emergency room with complaints of sharp periumbilical abdominal pain. There was no alleviating or exacerbating factors. The patient states the pain has been present for many years but has been intermittent. It is not associated with certain foods. It is associated with nausea and vomiting even with water. No fevers, chills, chest pain, shortness of breath. Patient had a HIDA scan which showed an abnormal gallbladder ejection fraction and surgery was counseled for evaluation. Past History Past Medical History: dialysis, GERD, heart failure, hypertension Past Surgical History: Other (history of creation of AV fistula, hx of PD catheter) Social history: no significant social history Family history: no significant family history Medications and Allergies Allergies Allergy/AdvReac Type Severity Reaction Status Date / Time No Known Allergies Allergy Verified 09/04/18 19:38 Home Medications Medication Instructions Recorded Confirmed Last Taken Type Cefuroxime Axetil [Ceftin] 500 mg PO Q48H #3 ml 12/23/17 09/04/18 Unknown Rx Aspirin EC 81 mg PO QDAY #30 tablet. 01/29/18 09/04/18 Unknown Rx AtorvaSTATin [Lipitor] 20 mg PO QHS #30 tablet 01/29/18 09/04/18 Unknown Rx Carvedilol [Coreg] 12.5 mg PO BID #30 tablet 01/29/18 09/04/18 Unknown Rx Lisinopril [Zestril TAB] 40 mg PO QDAY #30 tablet 01/29/18 09/04/18 Unknown Rx NIFEdipine [Nifedipine ER] 30 mg PO DAILY #30 tablet.er 01/29/18 09/04/18 Unknown Rx Omeprazole 20 mg PO DAILY #30 tablet. 01/29/18 09/04/18 Unknown Rx Sevelamer Carbonate [Renvela] 800 mg PO DAILY #30 tablet 01/29/18 09/04/18 Unknown Rx Tamsulosin [Flomax] 1 cap PO DAILY #30 capsule 01/29/18 09/04/18 Unknown Rx oxyCODONE /ACETAMINOPHEN [Percocet 1 tab PO Q4HR #10 tab 01/29/18 09/04/18 Unknown Rx 5/325] Active Meds: Active Medications Acetaminophen (Tylenol) 650 mg PO Q4H PRN PRN Reason: Pain MILD(1-3)/Fever >100.5/STARK Atorvastatin Calcium (Lipitor) 20 mg PO QHS [facility] Last Admin: 09/08/18 21:25 Dose: 20 mg Documented by: Calcitriol (Rocaltrol) 0.5 mcg PO QDAY [facility] Last Admin: 09/09/18 14:33 Dose: 0.5 mcg Documented by: Calcium Citrate (Citracal D 315mg-250 Units) 2 each PO BID [facility] Last Admin: 09/09/18 14:33 Dose: 2 each Documented by: Carvedilol (Coreg) 12.5 mg PO BID [facility] Last Admin: 09/09/18 10:00 Dose: Not Given Documented by: Sodium Chloride (Nacl 0.9%) 100 mls @ 999 mls/hr IV MARGARET PRN PRN Reason: Hypotension Levofloxacin/Dextrose (Levaquin 500mg/100ml) 500 mg in 100 mls @ 100 mls/hr IV Q48H [facility]; Protocol Last Admin: 09/08/18 15:04 Dose: 100 mls/hr Documented by: Morphine Sulfate (Morphine) 2 mg IV Q4H PRN PRN Reason: Pain, Moderate (4-6) Last Admin: 09/07/18 21:39 Dose: 2 mg Documented by: Ondansetron HCl (Zofran) 4 mg IV Q8H PRN PRN Reason: Nausea And Vomiting Last Admin: 09/07/18 11:00 Dose: 4 mg Documented by: Pantoprazole Sodium (Protonix) 40 mg PO BID [facility] Sevelamer Carbonate (Renvela) 800 mg PO DAILY@0800 [facility] Last Admin: 09/09/18 08:00 Dose: Not Given Documented by: Sodium Chloride (Sodium Chloride Flush Syringe 10 Ml) 10 ml IV BID [facility] Last Admin: 09/09/18 14:33 Dose: 10 ml Documented by: Sodium Chloride (Sodium Chloride Flush Syringe 10 Ml) 10 ml IV PRN PRN PRN Reason: LINE FLUSH Last Admin: 09/05/18 05:49 Dose: 10 ml Documented by: Tamsulosin HCl (Flomax) 0.4 mg PO DAILY [facility] Last Admin: 09/09/18 14:33 Dose: 0.4 mg Documented by: Review of Systems All systems: negative (10 point review of systems performed and negative except for that listed in HPI) Exam Vital Signs Temp Pulse Resp BP Pulse Ox 98.3 F 91 H 20 156/98 98 09/04/18 19:44 09/04/18 19:44 09/04/18 19:44 09/04/18 19:44 09/04/18 19:44 Narrative exam: Gen: AAOx3. NAD ENT: no scleral icterus or conjunctival pallor CV: s1, S2+ Resp: even and unlabored Abd: soft, ND, + generalized TTP. No r/r/g Ext: no c/c/e Results - Labs 09/08/18 05:24 09/08/18 05:24 Abnormal lab results 09/06/18 Range/Units 21:10 Ionized Calcium 2.6 L* (4.8-5.6) mg/dL - Imaging CT scan - abdomen: report reviewed, image reviewed CT scan - pelvis: report reviewed, image reviewed Additional studies: HIDA with EF Assessment and Plan 63-year-old male with abdominal pain, biliary dyskinesia, hypocalcemia EGD 09/08/18: Plan: 1. adv diet as adriana 2. prn nausea and pain control 3. Discussed results of HIDA scan with patient and explained that his gallbladder is not functioning. His abdominal symptoms could be related to this and the next step would be to consider cholecystectomy. There is a small chance that despite removing gallbladder, he may continue to have symptoms. Patient understands 4. Will need correction of calcium in order to undergo general anesthesia 5. cardiology consult for preop risk assessment Cholecystectomy is not urgent. If patient tolerates a liquid diet, he can follow up as outpatient for elective cholecystectomy. Thank you, please call with questions.
--- NOTE | 2018-09-09 15:34 | Consultation ---
History of Present Illness Consult date: 09/09/18 Requesting physician: AVA DAVIS Consult reason: pre op evaluation History of present illness: The patient is a 63 y/o male with a past medical history of HTN, ESRD on HD, HF, NICMP, TIA, CVA, severe TR. He is followed in our office by Dr. Weeks. He presented with c/o abdominal pain, nausea and vomiting intermittently for several months prior to arrival. He states he has been hospitalized before with these symptoms. He denies any chest pain, SOB, palpitations, dizziness or syncope. Patient had a HIDA scan which showed an abnormal gallbladder ejection fraction and he may require cholecystectomy and thus cardiology has been consulted for preoperative cardiac risk stratification. Echo done 12/21/2017 showed EF 35-40%, mild LVH, pseudonormalization, LA mildly dilated, RV mildly dilated, RA mod dilated, mild to mod MR, mild to mod TR, mod pulm HTN with RVSP 50mmHg, trivial pericardial effusion, large pleural effusion. Echo done 03/2018 showed EF 30%, mild LVH, severely dilated LA, severe MR, mildly reduced RV systolic function, mod enlarged RV, mod dilated RA, severe TR, RVSP 85mmHg. Lexiscan MPI stress test done 12/22/2017 was negative for active ischemia, EF 40%. Findings c/w NICMP. Past History Past Medical History: dialysis, GERD, heart failure, hypertension Past Surgical History: Other (history of creation of AV fistula, hx of PD catheter) Social history: no significant social history Family history: no significant family history Medications and Allergies Allergies Allergy/AdvReac Type Severity Reaction Status Date / Time No Known Allergies Allergy Verified 09/04/18 19:38 Home Medications Medication Instructions Recorded Confirmed Last Taken Type Cefuroxime Axetil [Ceftin] 500 mg PO Q48H #3 ml 12/23/17 09/04/18 Unknown Rx Aspirin EC 81 mg PO QDAY #30 tablet. 01/29/18 09/04/18 Unknown Rx AtorvaSTATin [Lipitor] 20 mg PO QHS #30 tablet 01/29/18 09/04/18 Unknown Rx Carvedilol [Coreg] 12.5 mg PO BID #30 tablet 01/29/18 09/04/18 Unknown Rx Lisinopril [Zestril TAB] 40 mg PO QDAY #30 tablet 01/29/18 09/04/18 Unknown Rx NIFEdipine [Nifedipine ER] 30 mg PO DAILY #30 tablet.er 01/29/18 09/04/18 Unknown Rx Omeprazole 20 mg PO DAILY #30 tablet.dr 01/29/18 09/04/18 Unknown Rx Sevelamer Carbonate [Renvela] 800 mg PO DAILY #30 tablet 01/29/18 09/04/18 Unknown Rx Tamsulosin [Flomax] 1 cap PO DAILY #30 capsule 01/29/18 09/04/18 Unknown Rx oxyCODONE /ACETAMINOPHEN [Percocet 1 tab PO Q4HR #10 tab 01/29/18 09/04/18 Unknown Rx 5/325] Active Meds: Active Medications Acetaminophen (Tylenol) 650 mg PO Q4H PRN PRN Reason: Pain MILD(1-3)/Fever >100.5/STARK Atorvastatin Calcium (Lipitor) 20 mg PO QHS [facility] Last Admin: 09/08/18 21:25 Dose: 20 mg Documented by: Calcitriol (Rocaltrol) 0.5 mcg PO QDAY [facility] Last Admin: 09/09/18 14:33 Dose: 0.5 mcg Documented by: Calcium Citrate (Citracal D 315mg-250 Units) 2 each PO BID [facility] Last Admin: 09/09/18 14:33 Dose: 2 each Documented by: Carvedilol (Coreg) 12.5 mg PO BID [facility] Last Admin: 09/09/18 10:00 Dose: Not Given Documented by: Sodium Chloride (Nacl 0.9%) 100 mls @ 999 mls/hr IV MARGARET PRN PRN Reason: Hypotension Levofloxacin/Dextrose (Levaquin 500mg/100ml) 500 mg in 100 mls @ 100 mls/hr IV Q48H [facility]; Protocol Last Admin: 09/08/18 15:04 Dose: 100 mls/hr Documented by: Morphine Sulfate (Morphine) 2 mg IV Q4H PRN PRN Reason: Pain, Moderate (4-6) Last Admin: 09/07/18 21:39 Dose: 2 mg Documented by: Ondansetron HCl (Zofran) 4 mg IV Q8H PRN PRN Reason: Nausea And Vomiting Last Admin: 09/07/18 11:00 Dose: 4 mg Documented by: Pantoprazole Sodium (Protonix) 40 mg PO BID [facility] Sevelamer Carbonate (Renvela) 800 mg PO DAILY@0800 [facility] Last Admin: 09/09/18 08:00 Dose: Not Given Documented by: Sodium Chloride (Sodium Chloride Flush Syringe 10 Ml) 10 ml IV BID [facility] Last Admin: 09/09/18 14:33 Dose: 10 ml Documented by: Sodium Chloride (Sodium Chloride Flush Syringe 10 Ml) 10 ml IV PRN PRN PRN Reason: LINE FLUSH Last Admin: 09/05/18 05:49 Dose: 10 ml Documented by: Tamsulosin HCl (Flomax) 0.4 mg PO DAILY [facility] Last Admin: 09/09/18 14:33 Dose: 0.4 mg Documented by: Review of Systems Constitutional: no weight loss, no weight gain, no fever, no chills, no sweats Ears, nose, mouth and throat: no ear pain, no nose pain, no sinus pressure, no sinus pain Cardiovascular: no chest pain, no orthopnea, no palpitations, no rapid/irregular heart beat, no edema, no syncope, no lightheadedness, no shortness of breath, no dyspnea on exertion, no leg edema Respiratory: no cough, no shortness of breath, no dyspnea on exertion, no c ongestion, no wheezing, no pain on inspiration Gastrointestinal: abdominal pain, nausea, vomiting, no diarrhea, no constipation, no change in bowel habits Genitourinary Male: no dysuria, no hematuria, no flank pain, no discharge, no urinary frequency, no urinary hesitancy Musculoskeletal: no neck stiffness, no neck pain, no shooting arm pain, no arm numbness/tingling, no low back pain, no shooting leg pain Integumentary: no rash, no pruritis, no redness, no sores, no wounds, no jaundice Neurological: no head injury, no paralysis, no weakness, no parathesias, no numbness, no tingling Psychiatric: no anxiety Endocrine: no cold intolerance, no heat intolerance Hematologic/Lymphatic: no easy bruising, no easy bleeding Allergic/Immunologic: no urticaria, no wheezing Physical Examination Vital Signs Temp Pulse Resp BP Pulse Ox 98.3 F 91 H 20 156/98 98 09/04/18 19:44 09/04/18 19:44 09/04/18 19:44 09/04/18 19:44 09/04/18 19:44 General appearance: no acute distress HEENT: Positive: PERRL, Normocephaly, Mucus Membranes Moist Neck: Positive: neck supple, trachea midline Cardiac: Positive: Reg Rate and Rhythm, S1/S2 Lungs: Positive: Decreased Breath Sounds Neuro: Positive: Grossly Intact Abdomen: Positive: Tender Skin: Negative: Rash, Wound Musculoskeletal: No Pain Extremities: Absent: edema Results 09/08/18 05:24 09/08/18 05:24 - Imaging and Cardiology Echo: report reviewed (Echo done 12/21/2017 showed EF 35-40%, mild LVH, pseudonormalization, LA mildly dilated, RV mildly dilated, RA mod dilated, mild to mod MR, mod pulm HTN with RVSP 50mmHg, trivial pericardial effusion, large pleural effusion. 03/2018 showed EF 30%, mild LVH, severely dilated LA, severe MR, mildly reduced RV systolic function, mod enlarged RV, mod dilated RA, severe TR, RVSP 85mmHg. ) EKG: report reviewed, image reviewed EKG interpretations - Telemetry EKG Rhythm: Sinus Rhythm - EKG Sinus rhythms and dysrhythmias: sinus rhythm Assessment and Plan Pt appears compensated and clinically stable from a cardiovascular standpoint. Pt is currently at high cardiovascular risk for cholecystectomy. However, there are no immediate cardiac contraindications to proceeding with surgery at this time. Agree with present cardiac management. The patient has been seen in conjunction with Dr. Bingham who agrees with the assessment and plan of care. - Patient Problems (1) Abdominal pain Current Visit: Yes Status: Acute (2) Nausea & vomiting Current Visit: Yes Status: Resolved (3) NICM (nonischemic cardiomyopathy) Current Visit: Yes Status: Chronic (4) ESRD on dialysis Current Visit: Yes Status: Chronic (5) HTN (hypertension) Current Visit: Yes Status: Chronic Qualifiers: Hypertension type: unspecified Qualified Code(s): I10 - Essential (primary) hypertension (6) History of CVA (cerebrovascular accident) Current Visit: Yes Status: Chronic (7) Anemia Current Visit: Yes Status: Chronic (8) Severe tricuspid regurgitation Current Visit: Yes Status: Chronic (9) Pulmonary HTN Current Visit: Yes Status: Chronic
[2018-09-09 16:06] LABS: Calcium 6.6 mg/dL (8.4-10.2)
[2018-09-09] MEDS ORDERED: MIRALAX 3350 PO PRN (18:27)
[2018-09-09] MEDS ORDERED: NACL 0.9 (PRIMING MACHINE ONLY DIALYSIS) MC ONE (19:39)
[2018-09-09] MEDS: COLACE PO SCH (21:41)
[2018-09-09] MEDS: PROTONIX PO SCH (21:41)
[2018-09-10] MEDS: RENVELA PO SCH (08:00)
--- NOTE | 2018-09-10 08:37 | Discharge Summary ---
Providers - Providers Date of Admission: 09/04/18 23:44 Date of discharge: 09/10/18 Attending physician: MANAV TINOCO 09/04/18 22:36 Consult to Physician [CONS] Stat Comment: Dr. Shannon spoke with Dr. Olvera @ [phone] Consulting Provider: KETURAH OLVERA Physician Instructions: Reason For Exam: esrd 09/04/18 23:44 Consult to Physician [CONS] Routine Comment: Consulting Provider: ANNA MCLAIN Physician Instructions: Reason For Exam: hematemesis 09/08/18 22:21 Consult to Physician [CONS] Routine Comment: Consulting Provider: AVA DAVIS Physician Instructions: Reason For Exam: biliary dyskinesia, intractable N/V 09/09/18 14:55 Consult to Physician [CONS] Routine Comment: Consulting Provider: EVELYNE GUPTA Physician Instructions: Reason For Exam: preop risk assessment Primary care physician: [employer] Hospitalization Reason for admission: n/v and abdominal pain Condition: Stable Hospital course: The patient is a 63 y/o male with a past medical history of HTN, ESRD on HD, HF, NICMP, TIA, CVA, severe TR who presented with c/o abdominal pain, nausea and vomiting intermittently for several months prior to arrival. He states he has been hospitalized before with these symptoms. He denied any chest pain, SOB, palpitations, dizziness or syncope. GI was initially consulted on hospitalization. Patient had a CT scan of the abdomen and pelvis that was found to be negative. GI opted for endoscopy which revealed no gross lesions to the second portion of the duodenum. Patient did have some gastritis and duodenitis. Distal esophagus was suspicious for Santa's esophagus and biopsies were obtained. GI did not feel that the findings explain patient's symptoms. Tylor partida had a HIDA scan which showed an abnormal gallbladder ejection fraction. Therefore, surgery consulted for possible cholecystectomy. Surgery explained that his gallbladder is not functioning. His abdominal symptoms could be related to this and the next step would be to consider cholecystectomy. There is a small chance that despite removing gallbladder, he may continue to have symptoms. Patient voiced understanding. Cardiology was consulted for preoperative risk assessment. Pt appears compensated and clinically stable from a cardiovascular standpoint. Pt is currently at high cardiovascular risk for cholecystectomy. However, there are no immediate cardiac contraindications to proceeding with surgery at this time. Agree with present cardiac management. Cholecystectomy is not urgent. If patient tolerates a liquid diet, he can follow up as outpatient for elective cholecystectomy. Patient tolerated diet well and will discharge home. Patient is to follow-up with cardiology, GI and surgery. Disposition: DC-30 STILL A PATIENT Core Measure Documentation - Palliative Care Palliative Care/ Comfort Measures: Not Applicable - Core Measures Any of the following diagnoses?: none Exam - Constitutional Vitals: Temp Pulse Resp BP Pulse Ox 98.5 F 74 20 127/78 97 09/10/18 04:40 09/10/18 04:40 09/10/18 04:40 09/10/18 04:40 09/10/18 04:40 General appearance: Present: no acute distress, well-nourished - EENT Eyes: Present: PERRL ENT: hearing intact, clear oral mucosa - Neck Neck: Present: supple, normal ROM - Respiratory Respiratory effort: normal Respiratory: bilateral: CTA - Cardiovascular Heart Sounds: Present: S1 & S2. Absent: rub, click - Extremities Extremities: pulses symmetrical, No edema Peripheral Pulses: within normal limits - Abdominal General gastrointestinal: Present: soft, non-tender, non-distended, normal bowel sounds Male genitourinary: Present: normal - Integumentary Integumentary: Present: clear, warm, dry - Musculoskeletal Musculoskeletal: gait normal, strength equal bilaterally - Psychiatric Psychiatric: appropriate mood/affect, intact judgment & insight - Neurologic Neurologic: CNII-XII intact, moves all extremities Plan Activity: advance as tolerated Weight Bearing Status: Weight Bear as Tolerated Diet: regular Follow up with: PRIMARY CARE, [Primary Care Provider] - 3-5 Days DANA CHACON MD [Staff Physician] - 7 Days SAMANTHA ZELAYA MD [Staff Physician] - 7 Days AVA DAVIS DO [Staff Physician] - 7 Days VINCENZO MARINELLI MD [Staff Physician] - 7 Days Prescriptions: Aspirin EC 81 mg PO QDAY #30 tablet. Carvedilol [Coreg] 12.5 mg PO BID #30 tablet Tamsulosin [Flomax] 1 cap PO DAILY #30 capsule AtorvaSTATin [Lipitor] 20 mg PO QHS #30 tablet NIFEdipine [Nifedipine ER] 30 mg PO DAILY #30 tablet.er oxyCODONE /ACETAMINOPHEN [Percocet 5/325 mg] 1 tab PO Q4HR #10 tab Pantoprazole [Protonix TAB] 40 mg PO BID #60 tablet Calcitriol [Rocaltrol] 0.5 mcg PO QDAY #30 capsule Lisinopril [Zestril TAB] 40 mg PO QDAY #30 tablet
[2018-09-10] MEDS: PROTONIX PO SCH (09:17)
[2018-09-10] MEDS: FLOMAX PO SCH (09:17)
[2018-09-10] MEDS: COLACE PO SCH (09:18)
[2018-09-10] MEDS: COREG PO SCH (09:18)
[2018-09-10] MEDS: ROCALTROL PO SCH (09:18)
[2018-09-10] MEDS: LEVAQUIN 500MG/100ML 500 MG/100 ML BAG IV SCH (09:19)
[2018-09-10 09:59] VITALS: BP 119/76
--- NOTE | 2018-09-10 10:43 | Progress Note ---
Assessment and Plan Pt appears compensated and clinically stable from a cardiovascular standpoint. Pt is currently at high cardiovascular risk for cholecystectomy. However, there are no immediate cardiac contraindications to proceeding with surgery at this time. Agree with present cardiac management. Nothing further to add from cardiac perspective at this time. Will sign off. Recommend follow up in our office with Dr. Weeks within 1-2 weeks of hospital discharge ([phone]). The patient has been seen in conjunction with Dr. Bingham who agrees with the assessment and plan of care. - Patient Problems (1) Abdominal pain Current Visit: Yes Status: Acute (2) Nausea & vomiting Current Visit: Yes Status: Resolved (3) NICM (nonischemic cardiomyopathy) Current Visit: Yes Status: Chronic (4) ESRD on dialysis Current Visit: Yes Status: Chronic (5) HTN (hypertension) Current Visit: Yes Status: Chronic Qualifiers: Hypertension type: unspecified Qualified Code(s): I10 - Essential (primary) hypertension (6) History of CVA (cerebrovascular accident) Current Visit: Yes Status: Chronic (7) Anemia Current Visit: Yes Status: Chronic (8) Severe tricuspid regurgitation Current Visit: Yes Status: Chronic (9) Pulmonary HTN Current Visit: Yes Status: Chronic Subjective Date of service: 09/10/18 Principal diagnosis: Abd pain, N/V Interval history: pt resting in bed, no current cardiac complaints. tolerated breakfast this AM. Objective Last Vital Signs Temp 98.4 F 09/10/18 09:58 Pulse 70 09/10/18 09:58 Resp 20 09/10/18 04:40 BP 119/76 09/10/18 09:58 Pulse Ox 97 09/10/18 04:40 - Physical Examination General: No Apparent Distress HEENT: Positive: PERRL, Normocephaly, Mucus Membranes Moist Neck: Positive: neck supple, trachea midline Cardiac: Positive: Reg Rate and Rhythm, S1/S2 Lungs: Positive: Decreased Breath Sounds Neuro: Positive: Grossly Intact Abdomen: Positive: Tender Skin: Negative: Rash, Wound Musculoskeletal: No Pain Extremities: Absent: edema - Labs and Meds Comprehensive Metabolic Panel 09/09/18 Range/Units 15:23 Sodium 138 (137-145) mmol/L Potassium 3.7 (3.6-5.0) mmol/L Chloride 95.1 L (98-107) mmol/L Carbon Dioxide 29 (22-30) mmol/L BUN 15 (9-20) mg/dL Creatinine 6.5 H (0.8-1.5) mg/dL Glucose 102 H (75-100) mg/dL Calcium 6.6 L (8.4-10.2) mg/dL - Imaging and Cardiology EKG: report reviewed, image reviewed Echo: report reviewed (Echo done 12/21/2017 showed EF 35-40%, mild LVH, pseudonormalization, LA mildly dilated, RV mildly dilated, RA mod dilated, mild to mod MR, mod pulm HTN with RVSP 50mmHg, trivial pericardial effusion, large pleural effusion. 03/2018 showed EF 30%, mild LVH, severely dilated LA, severe MR, mildly reduced RV systolic function, mod enlarged RV, mod dilated RA, severe TR, RVSP 85mmHg. ) - EKG Sinus rhythms and dysrhythmias: sinus rhythm
--- NOTE | 2018-09-10 12:06 | Event Note ---
Date: 09/10/18 Came to see patient but he is already discharged and left hospital. DC paperwork has instructions for patient to follow up in general surgery clinic with me in 1 week.
[2018-09-12 08:00] LABS: Vitamin D, 25-OH, D2 <4 ng/mL
== END 2018-09-10 11:15 | disposition home or self-care (01) | DRG 377 ==
LOC: ED 19:34 → 4A 23:44
PROVIDERS: ADMIT Internal Medicine; ATTEND Hospitalist
PROC: 5A1D70Z Performance of Urinary Filtration, Intermittent, Less than 6 Hours Per Day (ICD-10-PCS; 2018-09-05)
PROC: 5A1D70Z Performance of Urinary Filtration, Intermittent, Less than 6 Hours Per Day (ICD-10-PCS; 2018-09-07)
PROC: 0DB98ZX Excision of Duodenum, Via Natural or Artificial Opening Endoscopic, Diagnostic (ICD-10-PCS; principal; 2018-09-08)
PROC: 0DB78ZX Excision of Stomach, Pylorus, Via Natural or Artificial Opening Endoscopic, Diagnostic (ICD-10-PCS; 2018-09-08)
PROC: 0DB68ZX Excision of Stomach, Via Natural or Artificial Opening Endoscopic, Diagnostic (ICD-10-PCS; 2018-09-08)
PROC: 0DB38ZX Excision of Lower Esophagus, Via Natural or Artificial Opening Endoscopic, Diagnostic (ICD-10-PCS; 2018-09-08)
PROC: 5A1D70Z Performance of Urinary Filtration, Intermittent, Less than 6 Hours Per Day (ICD-10-PCS; 2018-09-09)
DX: K29.71 Gastritis, unspecified, with bleeding (principal); J18.9 Pneumonia, unspecified organism; N18.6 End stage renal disease; I13.2 Hypertensive heart and chronic kidney disease with heart failure and with stage 5 chronic kidney disease, or end stage renal disease; I42.9 Cardiomyopathy, unspecified; K29.81 Duodenitis with bleeding; K82.8 Other specified diseases of gallbladder; E87.79 Other fluid overload; I50.9 Heart failure, unspecified; E83.51 Hypocalcemia; I08.1 Rheumatic disorders of both mitral and tricuspid valves; I27.20 Pulmonary hypertension, unspecified; K22.70 Barrett's esophagus without dysplasia; K21.9 Gastro-esophageal reflux disease without esophagitis; D63.1 Anemia in chronic kidney disease; I25.10 Atherosclerotic heart disease of native coronary artery without angina pectoris; A08.4 Viral intestinal infection, unspecified; Z99.2 Dependence on renal dialysis; Z82.49 Family history of ischemic heart disease and other diseases of the circulatory system; Z79.899 Other long term (current) drug therapy; Z79.82 Long term (current) use of aspirin; Z95.828 Presence of other vascular implants and grafts; Z91.19 Patient's noncompliance with other medical treatment and regimen; Z86.73 Personal history of transient ischemic attack (TIA), and cerebral infarction without residual deficits
CPT/HCPCS: 36415; 71046; 74176; 78227; 80048; 80053; 80061; 80074; 82140; 82306; 82330; 82550; 82553; 83690; 83735; 83880; 84100; 84484; 85014; 85018; 85025; 85027; 87040; 88305; 88342; 93005; 93010; G0378; A9270-GY; A9537; C9113; J0610; J0692; J1956; J2270; J2405; J2704; J2805; J7030

== ENCOUNTER 2018-10-02 23:28 | Emergency (ER) | payer MEDICARE | END 2018-10-02 23:55 | disposition left against medical advice (07) | LOC: ED 23:28 | DX: R06.02 Shortness of breath (principal); R11.10 Vomiting, unspecified; H53.8 Other visual disturbances; Z53.21 Procedure and treatment not carried out due to patient leaving prior to being seen by health care provider ==

== ENCOUNTER 2018-12-28 12:20 | Inpatient (IN) | payer OTHER, MEDICARE ==
--- NOTE | 2018-12-28 12:36 | Event Note ---
ED Screening Note Date of service: 12/28/18 Time: 12:33 ED Screening Note: Pt complains of abdominal pain and N/V/D states hematochezia and coffee ground emesis +hx of GI bleed per pt denies hx of abdominal surgeries +dialysis-thursday, , thursday, Dr. Cruz This initial assessment/diagnostic orders/clinical plan/treatment(s) is/are subject to change based on patients health status, clinical progression and re- assessment by fellow clinical providers in the ED. Further treatment and workup at subsequent clinical providers discretion. Patient/guardian urged not to elope from the ED as their condition may be serious if not clinically assessed and managed. Initial orders include: labs CT
[2018-12-28 13:45] LABS: Hematocrit 28.7 % (35.5-45.6); Hemoglobin 9.3 gm/dl (11.8-15.2); Mean Corpuscular HGB Conc 32 % (32-34); Mean Corpuscular Volume 94 fl (84-94); Platelet Count 212 K/mm3 (140-440); Red Blood Count 3.06 M/mm3 (3.65-5.03); Red Cell Distribution Width 17.2 % (13.2-15.2)
[2018-12-28 13:56] LABS: INR 1.41 (0.87-1.13); Partial Thromboplastin Time 31.8 Sec. (24.2-36.6)
[2018-12-28 14:24] LABS: Chol/HDL Ratio 2.22 %
[2018-12-28] MEDS ORDERED: PANTOPRAZOLE 40 MG INJ IV ONE (15:03)
[2018-12-28] MEDS ORDERED: ONDANSETRON 4 MG/2 ML INJ IV ONE (15:03)
[2018-12-28] MEDS ORDERED: FAMOTIDINE 20 MG/2 ML INJ IV ONE (15:03)
[2018-12-28] MEDS ORDERED: MORPHINE 4 MG/1 ML INJ IV ONE (15:18)
--- NOTE | 2018-12-28 16:27 | XRay Report ---
CHEST 2 VIEWS INDICATION: cough. Hemoptysis. COMPARISON: 09/04/2018 FINDINGS: Support devices: None. Heart: Mild to moderate cardiomegaly. Lungs/pleura: Mild pulmonary venous congestion, small left pleural effusion and trace right pleural e ffusion are identified. Mild atelectatic changes are noted at the left lung base. No pneumothorax. Additional findings: None. IMPRESSION: Mild CHF. Signer Name: Collins Arnold Jr, MD Signed: 12/28/2018 4:23 PM Workstation Name: [id number]
[2018-12-28] MEDS ORDERED: SODIUM BICARB 8.4% 50 MEQ/50 ML SYRINGE IV ONE (17:01)
[2018-12-28] MEDS ORDERED: SODIUM POLYSTYRENE 15 GM/60 ML ORAL LIQD PO ONE (17:01)
[2018-12-28] MEDS ORDERED: INSULIN REGULAR, HUMAN 100 UNITS/1 ML IV ONE (17:01)
--- NOTE | 2018-12-28 17:07 | Emergency Department Report ---
ED General Adult HPI - General Chief complaint: GI Bleed Stated complaint: BLEEDING/COUGH/SOB/ABD PAIN Time Seen by Provider: 12/28/18 12:33 Source: patient Mode of arrival: Ambulatory Limitations: No Limitations - History of Present Illness Initial comments: Patient is a 63-year-old gentleman who is presenting with cough shortness of breath and abdominal pain. Patient is has a stage renal disease and has missed his last 2 dialysis sessions. Patient states he has mild shortness of breath with no cough and denies fever. Patient states he missed dialysis because he's been having some abdominal pain. Patient states he's passing some dark red bloo d in his stool and also occasionally will cough up blood as well. Patient states his abdomen is tender to palpation and is aching cramping pain that he states is a 10 out of 10 in severity. Patient states the bleeding has been off and on for the last 3 months. Patient states he's been admitted to hospitals in the past for his dialysis and has told people that he is leaving but no interventions have been done. When I described an endoscopy and colonoscopy patient states he has not had these procedures Severity scale (0 -10): 10 - Related Data Previous Rx's Medication Instructions Recorded Last Taken Type Cefuroxime Axetil [Ceftin] 500 mg PO Q48H #3 ml 12/23/17 Unknown Rx Omeprazole 20 mg PO DAILY #30 tablet. 01/29/18 Unknown Rx Sevelamer Carbonate [Renvela] 800 mg PO DAILY #30 tablet 01/29/18 Unknown Rx Aspirin EC [Halfprin EC] 81 mg PO QDAY #30 tablet. 09/10/18 Unknown Rx AtorvaSTATin [Lipitor] 20 mg PO QHS #30 tablet 09/10/18 Unknown Rx Calcitriol [Rocaltrol] 0.5 mcg PO QDAY #30 capsule 09/10/18 Unknown Rx Carvedilol [Coreg] 12.5 mg PO BID #30 tablet 09/10/18 Unknown Rx Lisinopril [Zestril TAB] 40 mg PO QDAY #30 tablet 09/10/18 Unknown Rx NIFEdipine [Nifedipine ER] 30 mg PO DAILY #30 tablet.er 09/10/18 Unknown Rx Pantoprazole [Protonix TAB] 40 mg PO BID #60 tablet 09/10/18 Unknown Rx Tamsulosin [Flomax] 1 cap PO DAILY #30 capsule 09/10/18 Unknown Rx oxyCODONE /ACETAMINOPHEN [Percocet 1 tab PO Q4HR #10 tab 09/10/18 Unknown Rx 5/325 mg] Allergies Allergy/AdvReac Type Severity Reaction Status Date / Time No Known Allergies Allergy Verified 09/04/18 19:38 ED Review of Systems ROS: Stated complaint: BLEEDING/COUGH/SOB/ABD PAIN Other details as noted in HPI Comment: All other systems reviewed and negative ED Past Medical Hx - Past Medical History Previous Medical History?: Yes Hx Hypertension: Yes Hx Heart Attack/AMI: No Hx Congestive Heart Failure: Yes Hx Diabetes: No Hx Liver Disease: No Hx Renal Disease: Yes (THURSDAY, THURSDAY AND THURSDAY) Hx Sickle Cell Disease: No Hx Seizures: No Hx Asthma: No Hx COPD: No - Surgical History Past Surgical History?: Yes Hx Pacemaker: No Hx Internal Defibrillator: No Additional Surgical History: shunt for dialysis - Social History Smoking Status: Never Smoker Substance Use Type: None - Medications Home Medications: Home Medications Medication Instructions Recorded Confirmed Last Taken Type Cefuroxime Axetil [Ceftin] 500 mg PO Q48H #3 ml 12/23/17 09/04/18 Unknown Rx Omeprazole 20 mg PO DAILY #30 tablet. 01/29/18 09/04/18 Unknown Rx Sevelamer Carbonate [Renvela] 800 mg PO DAILY #30 tablet 01/29/18 09/04/18 Unknown Rx Aspirin EC [Halfprin EC] 81 mg PO QDAY #30 tablet. 09/10/18 Unknown Rx AtorvaSTATin [Lipitor] 20 mg PO QHS #30 tablet 09/10/18 Unknown Rx Calcitriol [Rocaltrol] 0.5 mcg PO QDAY #30 capsule 09/10/18 Unknown Rx Carvedilol [Coreg] 12.5 mg PO BID #30 tablet 09/10/18 Unknown Rx Lisinopril [Zestril TAB] 40 mg PO QDAY #30 tablet 09/10/18 Unknown Rx NIFEdipine [Nifedipine ER] 30 mg PO DAILY #30 tablet.er 09/10/18 Unknown Rx Pantoprazole [Protonix TAB] 40 mg PO BID #60 tablet 09/10/18 Unknown Rx Tamsulosin [Flomax] 1 cap PO DAILY #30 capsule 09/10/18 Unknown Rx oxyCODONE /ACETAMINOPHEN [Percocet 1 tab PO Q4HR #10 tab 09/10/18 Unknown Rx 5/325 mg] ED Physical Exam - General Limitations: No Limitations General appearance: alert, in no apparent distress - Head Head exam: Present: atraumatic, normocephalic - Eye Eye exam: Present: normal appearance. Absent: PERRL, EOMI - ENT ENT exam: Present: mucous membranes moist - Neck Neck exam: Present: normal inspection - Respiratory Respiratory exam: Present: normal lung sounds bilaterally. Absent: respiratory distress, wheezes, rales, rhonchi - Cardiovascular Cardiovascular Exam: Present: regular rate, normal rhythm, normal heart sounds. Absent: systolic murmur, diastolic murmur, rubs, gallop - GI/Abdominal GI/Abdominal exam: Present: soft, tenderness (diffuse), normal bowel sounds. A bsent: distended, guarding, rebound - Rectal Rectal exam: Present: normal inspection, heme (-) stool. Absent: black stool, bloody stool - Extremities Exam Extremities exam: Present: normal inspection - Back Exam Back exam: Present: normal inspection - Neurological Exam Neurological exam: Present: alert, oriented X3 - Psychiatric Psychiatric exam: Present: normal affect, normal mood - Skin Skin exam: Present: warm, dry, intact, normal color. Absent: rash ED Course Vital Signs 12/28/18 12/28/18 12/28/18 12:33 14:46 14:57 Temperature 97.8 F 97.8 F Pulse Rate 83 83 83 Respiratory 22 22 16 Rate Blood Pressure 182/106 Blood Pressure 163/96 [Left] O2 Sat by Pulse 96 100 97 Oximetry 12/28/18 12/28/18 14:58 15:00 Temperature Pulse Rate 83 Respiratory 16 22 Rate Blood Pressure Blood Pressure 178/88 [Left] O2 Sat by Pulse 97 100 Oximetry ED Medical Decision Making - Lab Data Result diagrams: 12/28/18 12:43 12/28/18 15:23 Lab Results 12/28/18 12/28/18 12/28/18 Range/Units 12:43 12:43 12:43 WBC 4.4 L (4.5-11.0) K/mm3 RBC 3.06 L (3.65-5.03) M/mm3 Hgb 9.3 L (11.8-15.2) gm/dl Hct 28.7 L (35.5-45.6) % MCV 94 (84-94) fl MCH 30 (28-32) pg MCHC 32 (32-34) % RDW 17.2 H (13.2-15.2) % Plt Count 212 (140-440) K/mm3 PT 17.1 H (12.2-14.9) Sec. INR 1.41 H (0.87-1.13) APTT 31.8 (24.2-36.6) Sec. Sodium (137-145) mmol/L Potassium (3.6-5.0) mmol/L Chloride (98-107) mmol/L Carbon Dioxide (22-30) mmol/L Anion Gap mmol/L BUN (9-20) mg/dL Creatinine (0.8-1.5) mg/dL Estimated GFR ml/min BUN/Creatinine Ratio % Glucose (75-100) mg/dL Calcium (8.4-10.2) mg/dL Troponin T 0.084 H (0.00-0.029) ng/mL Triglycerides 156 H (2-149) mg/dL Cholesterol 127 (50-199) mg/dL LDL Cholesterol Direct 50 (50-130) mg/dL HDL Cholesterol 57 (40-59) mg/dL Cholesterol/HDL Ratio 2.22 % Lipase 47 (13-60) units/L 12/28/18 Range/Units 15:23 WBC (4.5-11.0) K/mm3 RBC (3.65-5.03) M/mm3 Hgb (11.8-15.2) gm/dl Hct (35.5-45.6) % MCV (84-94) fl MCH (28-32) pg MCHC (32-34) % RDW (13.2-15.2) % Plt Count (140-440) K/mm3 PT (12.2-14.9) Sec. INR (0.87-1.13) APTT (24.2-36.6) Sec. Sodium 139 (137-145) mmol/L Potassium 7.4 H* (3.6-5.0) mmol/L Chloride 101.4 (98-107) mmol/L Carbon Dioxide 13 L (22-30) mmol/L Anion Gap 32 mmol/L BUN 91 H (9-20) mg/dL Creatinine 18.0 H (0.8-1.5) mg/dL Estimated GFR 3 ml/min BUN/Creatinine Ratio 5 % Glucose 72 L (75-100) mg/dL Calcium 7.0 L (8.4-10.2) mg/dL Troponin T 0.073 H (0.00-0.029) ng/mL Triglycerides (2-149) mg/dL Cholesterol (50-199) mg/dL LDL Cholesterol Direct (50-130) mg/dL HDL Cholesterol (40-59) mg/dL Cholesterol/HDL Ratio % Lipase (13-60) units/L - EKG Data -: EKG Interpreted by Il - EKG Data 12/28/18 17:07 EKG shows sinus rhythm rate of 81. Axes normal intervals show a prolonged QT. There are no ST segment elevations or depressions. Time of interpretation is 1250. - Radiology Data Radiology results: report reviewed (chest x-ray shows cardiomegaly with mild pulmonary vascular congestion.) - Medical Decision Making She is a 63-year-old gentleman who is presenting with shortness of breath and mild cough. Patient is missed 2 dialysis sessions. Patient appears to be fluid overloaded. Patient will be admitted for dialysis. Beyond this the patient also states he has some crampy diffuse abdominal tenderness. Patient states she's been having blood in his stool for the past 3 months is guaiac negative. When told that he had no blood in his stool at this time he stated that last time he saw the blood as yesterday. CT is pending at the time of admission however per my interpretation of his CTA did not see any inflammatory changes. Critical care attestation.: If time is entered above; I have spent that time in minutes in the direct care of this critically ill patient, excluding procedure time. ED Disposition Clinical Impression: Pulmonary edema, ESRD needing dialysis, Fluid overload, Shortness of breath, Hyperkalemia Disposition: OP ADMIT IP TO THIS HOSP Is pt being admited?: Yes Does the pt Need Aspirin: No Condition: Stable Forms: Accompanied Note Time of Disposition: 17:12
--- NOTE | 2018-12-28 17:11 | History and Physical Report ---
History of Present Illness Chief complaint: I haven't been feeling good History of present illness: 63 YO Male with ESRD on HD (T,R,Sa), HTN, Systolic/Diastolic CHF, GERD presents to ED for evaluation. Pt states that he has experienced shortness of breath, fatigue, and abdominal discomfort over the past 5 days with worsening symptoms over the past 3 days. Pt states that he has missed his past 2 dialysis sessions because of his abdominal discomfort. Pt acknowledges multiple dark stools and well as productive cough with 3-4 episodes of blood tinged sputum. Pt acknowledges that the aforementioned symptoms have been present over the past 3 months. Pt has underwent endoscopic evaluation. Pt transported to [facility] via private vehicle. Pt seen and evaluated in ED and found to have ESRD, Acidosis, and hyperkalemia. Nephrology consulted in ED for urgent dialysis. NO EKG changes. Pt denies fever, chills, palpitations, BRBPR, Unintentional weight loss, syncope, productive cough, or recent ill contacts. Prior admission on 09/04/18 reviewed. All listed mediation reconciled at time of admission. Past History Past Medical History: other (see hpi) Past Surgical History: Other (Dialysis access) Social history: . denies: smoking, alcohol abuse, prescription drug abuse Family history: hypertension Medications and Allergies Allergies Allergy/AdvReac Type Severity Reaction Status Date / Time No Known Allergies Allergy Verified 09/04/18 19:38 Home Medications Medication Instructions Recorded Confirmed Last Taken Type Cefuroxime Axetil [Ceftin] 500 mg PO Q48H #3 ml 12/23/17 12/28/18 Unknown Rx Omeprazole 20 mg PO DAILY #30 tablet. 01/29/18 12/28/18 Unknown Rx Sevelamer Carbonate [Renvela] 800 mg PO DAILY #30 tablet 01/29/18 12/28/18 Unknown Rx Aspirin EC [Halfprin EC] 81 mg PO QDAY #30 tablet. 09/10/18 12/28/18 Unknown Rx AtorvaSTATin [Lipitor] 20 mg PO QHS #30 tablet 09/10/18 12/28/18 Unknown Rx Calcitriol [Rocaltrol] 0.5 mcg PO QDAY #30 capsule 09/10/18 12/28/18 Unknown Rx Carvedilol [Coreg] 12.5 mg PO BID #30 tablet 09/10/18 12/28/18 Unknown Rx Lisinopril [Zestril TAB] 40 mg PO QDAY #30 tablet 09/10/18 12/28/18 Unknown Rx NIFEdipine [Nifedipine ER] 30 mg PO DAILY #30 tablet.er 09/10/18 12/28/18 Unknown Rx Pantoprazole [Protonix TAB] 40 mg PO BID #60 tablet 09/10/18 12/28/18 Unknown Rx Tamsulosin [Flomax] 1 cap PO DAILY #30 capsule 09/10/18 12/28/18 Unknown Rx oxyCODONE /ACETAMINOPHEN [Percocet 1 tab PO Q4HR #10 tab 09/10/18 12/28/18 Unknown Rx 5/325 mg] Active Meds: Active Medications Dextrose (D50w (25gm) Syringe) 100 ml IV ONCE ONE; Protocol Stop: 12/28/18 18:01 Review of Systems Constitutional: fatigue, weakness Ears, nose, mouth and throat: no ear pain, no ear discharge, no tinnitis, no nose pain, no nasal congestion Cardiovascular: shortness of breath, no chest pain, no orthopnea, no palpitations, no rapid/irregular heart beat, no edema Respiratory: no cough, no cough with sputum, no hemoptysis, no shortness of breath Gastrointestinal: no abdominal pain, no nausea, no vomiting, no diarrhea, no constipation Genitourinary Male: no hematuria, no flank pain, no discharge, no urinary frequency, no urinary hesitancy Rectal: no pain, no incontinence, no bleeding Musculoskeletal: no neck stiffness, no neck pain, no shooting arm pain, no arm numbness/tingling, no shooting leg pain Integumentary: no rash, no pruritis, no redness, no sores, no wounds Neurological: no transient paralysis, no paralysis, no weakness, no parathesias, no numbness, no tingling, no seizures Psychiatric: no anxiety, no memory loss, no change in sleep habits, no sleep disturbances, no hypersomnia, no change in appetite, no suicidal ideation, no disorientation Endocrine: no cold intolerance, no heat intolerance, no polyphagia, no excessive thirst, no polydipsia, no nocturia Hematologic/Lymphatic: no easy bruising, no easy bleeding, no lymphadenopathy, no lymphedema Allergic/Immunologic: no urticaria, no allergic rhinitis, no persistent infections, no anaphylaxis Exam - Constitutional Vitals: Temp Pulse Resp BP Pulse Ox 97.8 F 83 22 178/88 100 12/28/18 14:57 12/28/18 15:00 12/28/18 15:00 12/28/18 15:00 12/28/18 15:00 General appearance: Present: mild distress - EENT Eyes: Present: PERRL ENT: hearing intact, clear oral mucosa - Neck Neck: Present: supple, normal ROM - Respiratory Respiratory effort: normal Respiratory: bilateral: CTA - Cardiovascular Heart Sounds: Present: S1 & S2. Absent: rub, click - Extremities Extremities: pulses symmetrical, No edema Peripheral Pulses: within normal limits - Abdominal General gastrointestinal: Present: soft, non-tender, non-distended, normal bowel sounds Male genitourinary: Present: normal - Integumentary Integumentary: Present: clear, warm, dry - Musculoskeletal Musculoskeletal: gait normal, strength equal bilaterally - Psychiatric Psychiatric: appropriate mood/affect, intact judgment & insight - Neurologic Neurologic: CNII-XII intact, moves all extremities Results - Labs CBC & Chem 7: 12/28/18 12:43 12/28/18 15:23 Labs: Abnormal lab results 12/28/18 12/28/18 12/28/18 Range/Units 12:43 12:43 12:43 WBC 4.4 L (4.5-11.0) K/mm3 RBC 3.06 L (3.65-5.03) M/mm3 Hgb 9.3 L (11.8-15.2) gm/dl Hct 28.7 L (35.5-45.6) % RDW 17.2 H (13.2-15.2) % PT 17.1 H (12.2-14.9) Sec. INR 1.41 H (0.87-1.13) Potassium (3.6-5.0) mmol/L Carbon Dioxide (22-30) mmol/L BUN (9-20) mg/dL Creatinine (0.8-1.5) mg/dL Glucose (75-100) mg/dL Calcium (8.4-10.2) mg/dL Troponin T 0.084 H (0.00-0.029) ng/mL Triglycerides 156 H (2-149) mg/dL 12/28/18 Range/Units 15:23 WBC (4.5-11.0) K/mm3 RBC (3.65-5.03) M/mm3 Hgb (11.8-15.2) gm/dl Hct (35.5-45.6) % RDW (13.2-15.2) % PT (12.2-14.9) Sec. INR (0.87-1.13) Potassium 7.4 H* (3.6-5.0) mmol/L Carbon Dioxide 13 L (22-30) mmol/L BUN 91 H (9-20) mg/dL Creatinine 18.0 H (0.8-1.5) mg/dL Glucose 72 L (75-100) mg/dL Calcium 7.0 L (8.4-10.2) mg/dL Troponin T 0.073 H (0.00-0.029) ng/mL Triglycerides (2-149) mg/dL Assessment and Plan - Patient Problems (1) ESRD (end stage renal disease) Status: Acute Plan to address problem: Nephrology consulted in ED, urgent dialysis, monitor serum potassium, monitor uop q shift, avoid nephrotoxic agents. (2) CHF (congestive heart failure) Status: Acute Qualifiers: Heart failure type: combined systolic and diastolic Plan to address problem: Strict I/O, daily weight, monitor uop q shift, afterload reduction, urgent dialysis, blood pressure control, daily weight, pulse oximetry, supplemental oxygen. (3) Hyperkalemia Status: Acute Plan to address problem: Calcium Gluconate, kayexelate, EKG without changes, urgent dialysis. (4) BPH (benign prostatic hyperplasia) Status: Acute Plan to address problem: PSA level, outpatient urology F/U care. (5) Acidosis Status: Acute Plan to address problem: IV bicarbonate therapy, (6) GERD (gastroesophageal reflux disease) Status: Acute Qualifiers: Esophagitis presence: without esophagitis Qualified Code(s): K21.9 - Gastro-esophageal reflux disease without esophagitis Plan to address problem: PPI therapy, supportive care, (7) HTN (hypertension) Status: Acute Qualifiers: Hypertension type: essential hypertension Qualified Code(s): I10 - Essential (primary) hypertension Plan to address problem: Monitor bp q shift, continue medical management. (8) DVT prophylaxis Status: Acute Plan to address problem: SCD to BLE while in bed, prophylactic heparin
--- NOTE | 2018-12-28 17:11 | Cat Scan Report ---
CT ABDOMEN AND PELVIS WITHOUT CONTRAST HISTORY: Abdominal pain COMPARISON: CT of the abdomen and pelvis on 09/04/2018 TECHNIQUE: Routine abdominal and pelvic CT exam performed without contrast. Lack of intravenous cont rast limits evaluation of the vascular and solid organs.. All CT scans at this location are performed using CT dose reduction for ALARA by means of automated exposure control. FINDINGS: CT ABDOMEN: Lung Bases: There is a small left and tiny right pleural effusion with bibasilar atelectasis and mild interstitial pulmonary edema. The heart is moderately enlarged. Liver: No significant abnormality. Biliary: No significant abnormality. Spleen: No significant abnormality. Unenlarged. Pancreas: No significant abnormality. Adrenals: No significant abnormality. Kidneys: Unchanged appearance of bilateral atrophic kidneys. Lymphatics: No lymphadenopathy. Vasculature: No significant abnormality. Bowel/Peritoneum: Small amount of free fluid in the abdomen is probably secondary to volume overload. There is no bowel obstruction or free air. There is no focal well-defined fluid collection. CT PELVIC: : The prostate remains significantly enlarged with mass effect on the urinary bladder. Lymphatics: No lymphadenopathy. Osseous Structures: No aggressive appearing osseous lesions. Unchanged generalized sclerosis of the o sseous structures with heterogeneity of the marrow cavities consistent with renal osteodystrophy. Additional Findings: None IMPRESSION: 1. Findings most likely reflecting volume overload/CHF, including cardiomegaly, bilateral pleural eff usions, and pulmonary edema. Small amount free fluid in the abdomen also likely reflects volume overl oad. 2. Unchanged chronic significant prostate enlargement. 3. Unchanged atrophic kidneys as well as skeletal findings suggesting chronic renal osteodystrophy. Signer Name: Franklin Dunn MD Signed: 12/28/2018 5:06 PM Workstation Name: [id number]
[2018-12-28] MEDS ORDERED: ACETAMINOPHEN 325 MG TAB PO PRN (17:12)
[2018-12-28] MEDS ORDERED: CALCIUM GLUCONATE 1,000 MG in SODIUM CHLORIDE 0.9% 100 ML IV ONE (17:18)
[2018-12-28] MEDS ORDERED: DEXTROSE 50% IN WATER (25GM) 50 ML SYRINGE IV ONE (18:00)
[2018-12-28] MEDS: oxyCODONE /ACETAMINOPHEN 5-325MG TAB PO SCH ×2 (18:13→22:04)
[2018-12-28] MEDS: ONDANSETRON 4 MG/2 ML INJ IV PRN (19:08)
[2018-12-28] MEDS: PANTOPRAZOLE 40 MG TAB PO SCH (22:05)
[2018-12-28] MEDS: carvediloL 12.5 MG TAB PO SCH (22:05)
[2018-12-29] MEDS: oxyCODONE /ACETAMINOPHEN 5-325MG TAB PO SCH ×5 (02:55→21:44)
[2018-12-29 06:11] LABS: Basophils % (Auto) 0.8 % (0.0-1.8); Eosinophils # (Auto) 0.1 K/mm3 (0.0-0.4); Eosinophils % (Auto) 3.1 % (0.0-4.3); Hematocrit 28.4 % (35.5-45.6); Hemoglobin 9.2 gm/dl (11.8-15.2); Lymphocytes # (Auto) 1.3 K/mm3 (1.2-5.4); Lymphocytes % (Auto) 34.7 % (13.4-35.0); Mean Corpuscular HGB Conc 32 % (32-34); Mean Corpuscular Volume 94 fl (84-94); Monocytes # (Auto) 0.4 K/mm3 (0.0-0.8); Monocytes % (Auto) 11.7 % (0.0-7.3); Platelet Count 169 K/mm3 (140-440); Red Blood Count 3.03 M/mm3 (3.65-5.03); Red Cell Distribution Width 17.1 % (13.2-15.2)
[2018-12-29 06:56] LABS: Alanine Aminotransferase 9 units/L (7-56); Albumin 3.4 g/dL (3.9-5); BUN/Creatinine Ratio 5; Blood Urea Nitrogen 94 mg/dL (9-20); Calcium 6.6 mg/dL (8.4-10.2); Hemolysis Index 2
[2018-12-29] MEDS ORDERED: SODIUM CHLORIDE 0.9% 100 ML IV PRN ×3 (09:17→15:52)
[2018-12-29] MEDS: TAMSULOSIN 0.4 MG CAP PO SCH (09:41)
[2018-12-29] MEDS: ASPIRIN EC 81 MG TAB PO SCH (09:41)
[2018-12-29] MEDS: PANTOPRAZOLE 40 MG TAB PO SCH ×2 (09:41→21:45)
[2018-12-29] MEDS: SEVELAMER CARBONATE 800 MG TAB PO SCH (09:41)
[2018-12-29] MEDS ORDERED: NON-FORMULARY EACH (Nifedipine [Nifedipine Er] 30 MG) PO SCH (10:00)
[2018-12-29] MEDS ORDERED: PANTOPRAZOLE 20 MG TAB PO SCH (10:00)
[2018-12-29] MEDS ORDERED: NON-FORMULARY EACH (Omeprazole [Omeprazole] 20 MG) PO SCH (10:00)
[2018-12-29 11:07] LABS: Hepatitis B Surface Antigen Non-Reactive (Negative); Hepatitis C Virus Antibody Non-Reactive (NonReactive)
--- NOTE | 2018-12-29 12:33 | Progress Note ---
Subjective Date of service: 12/29/18 Objective - Vital Signs Vital signs: Vital Signs - 12hr 12/29/18 12/29/18 05:21 06:48 Temperature 97.7 F Pulse Rate 68 Respiratory 18 16 Rate Blood Pressure 123/73 O2 Sat by Pulse 98 Oximetry - Lab 12/29/18 05:30 12/29/18 05:30 Most recent lab results Calcium 6.6 mg/dL (8.4-10.2) L 12/29/18 05:30 Medications & Allergies - Medications Allergies/Adverse Reactions: Allergies No Known Allergies Allergy (Verified 09/04/18 19:38) Home Medications: Home Medications Medication Instructions Recorded Confirmed Last Taken Type Cefuroxime Axetil [Ceftin] 500 mg PO Q48H #3 ml 12/23/17 12/28/18 Unknown Rx Omeprazole 20 mg PO DAILY #30 tablet. 01/29/18 12/28/18 Unknown Rx Sevelamer Carbonate [Renvela] 800 mg PO DAILY #30 tablet 01/29/18 12/28/18 Unknown Rx Aspirin EC [Halfprin EC] 81 mg PO QDAY #30 tablet. 09/10/18 12/28/18 Unknown Rx AtorvaSTATin [Lipitor] 20 mg PO QHS #30 tablet 09/10/18 12/28/18 Unknown Rx Calcitriol [Rocaltrol] 0.5 mcg PO QDAY #30 capsule 09/10/18 12/28/18 Unknown Rx Lisinopril [Zestril TAB] 40 mg PO QDAY #30 tablet 09/10/18 12/28/18 Unknown Rx NIFEdipine [Nifedipine ER] 30 mg PO DAILY #30 tablet.er 09/10/18 12/28/18 Unknown Rx Pantoprazole [Protonix TAB] 40 mg PO BID #60 tablet 09/10/18 12/28/18 Unknown Rx Tamsulosin [Flomax] 1 cap PO DAILY #30 capsule 09/10/18 12/28/18 Unknown Rx carvediloL [Coreg] 12.5 mg PO BID #30 tablet 09/10/18 12/28/18 Unknown Rx oxyCODONE /ACETAMINOPHEN [Percocet 1 tab PO Q4HR #10 tab 09/10/18 12/28/18 Unknown Rx 5/325 mg] Active Medications: Generic Name Dose Route Start Last Admin Trade Name Freq PRN Reason Stop Dose Admin Acetaminophen 650 mg 12/28/18 17:12 Tylenol PO Q4H PRN Pain MILD(1-3)/Fever >100.5/STARK Aspirin 81 mg 12/29/18 10:00 12/29/18 09:41 Halfprin Ec PO 81 mg QDAY BRANDEE Administration Atorvastatin Calcium 20 mg 12/28/18 22:00 12/28/18 22:05 Lipitor PO 20 mg QHS BRANDEE Administration Calcitriol 0.5 mcg 12/29/18 10:00 Rocaltrol PO QDAY BRANDEE Carvedilol 12.5 mg 12/28/18 22:00 12/28/18 22:05 Coreg PO 12.5 mg BID BRANDEE Administration Sodium Chloride 100 mls @ 999 mls/hr 12/29/18 09:17 Nacl 0.9% IV MARGARET PRN Hypotension Lisinopril 40 mg 12/29/18 10:00 Zestril PO QDAY BRANDEE Nifedipine 30 mg 12/29/18 10:00 Procardia Xl PO QDAY BRANDEE Ondansetron HCl 4 mg 12/28/18 17:12 12/28/18 19:08 Zofran IV 4 mg Q8H PRN Administration Nausea And Vomiting Oxycodone/Acetaminophen 1 tab 12/28/18 18:00 12/29/18 06:48 Percocet 5/325 PO 1 tab Q4HR BRANDEE Administration Pantoprazole Sodium 40 mg 12/28/18 22:00 12/29/18 09:41 Protonix PO 40 mg BID BRANDEE Administration Pantoprazole Sodium 20 mg 12/29/18 10:00 Protonix PO QDAY BRANDEE Sevelamer Carbonate 800 mg 12/29/18 10:00 12/29/18 09:41 Renvela PO 800 mg DAILY@0800 BRANDEE Administration Sodium Chloride 10 ml 12/28/18 22:00 12/28/18 22:06 Sodium Chloride Flush Syringe 10 Ml IV 10 ml BID BRANDEE Administration Sodium Chloride 10 ml 12/28/18 17:12 Sodium Chloride Flush Syringe 10 Ml IV PRN PRN LINE FLUSH Tamsulosin HCl 0.4 mg 12/29/18 10:00 12/29/18 09:41 Flomax PO 0.4 mg DAILY BRANDEE Administration
--- NOTE | 2018-12-29 13:14 | Progress Note ---
Assessment and Plan Assessment and plan: ESRD. Patient with missed hemodialysis approximately 3 sessions. His last hemodialysis was over a week ago. Nephrology consulted. Hyperkalemia. Patient undergo hemodialysis. Acute systolic heart failure. Etiology secondary to volume overload. Patient currently with hemodialysis. Exercise stress test completed December 2017 revealed an EF of 40% but no ischemia. Nonischemic dilated cardiomyopathy. Cardiology consultation. GERD. Continue PPI. Hypertension. Resume home antihypertensive medications. History Interval history: No new issues overnight. Patient seen and hemodialysis. Patient reports his last hemodialysis was Thursday ago. Hospitalist Physical - Constitutional Vitals: Temp Pulse Resp BP Pulse Ox 97.9 F 67 18 129/69 98 12/29/18 12:25 12/29/18 12:30 12/29/18 12:25 12/29/18 12:30 12/29/18 05:21 General appearance: Present: no acute distress - EENT Eyes: Present: PERRL, EOM intact ENT: hearing intact, clear oral mucosa, dentition normal - Neck Neck: Present: supple, normal ROM - Respiratory Respiratory effort: normal Respiratory: bilateral: CTA - Cardiovascular Rhythm: regular Heart Sounds: Present: S1 & S2. Absent: gallop, rub - Extremities Extremities: no ischemia, No edema, Full ROM - Abdominal General gastrointestinal: soft, non-tender, non-distended, normal bowel sounds - Integumentary Integumentary: Present: clear, warm, dry - Neurologic Neurologic: CNII-XII intact, moves all extremities Results - Labs CBC & Chem 7: 12/29/18 05:30 12/29/18 05:30 Labs: Laboratory Last Values WBC 3.8 K/mm3 (4.5-11.0) L 12/29/18 05:30 RBC 3.03 M/mm3 (3.65-5.03) L 12/29/18 05:30 Hgb 9.2 gm/dl (11.8-15.2) L 12/29/18 05:30 Hct 28.4 % (35.5-45.6) L 12/29/18 05:30 MCV 94 fl (84-94) 12/29/18 05:30 MCH 30 pg (28-32) 12/29/18 05:30 MCHC 32 % (32-34) 12/29/18 05:30 RDW 17.1 % (13.2-15.2) H 12/29/18 05:30 Plt Count 169 K/mm3 (140-440) 12/29/18 05:30 Lymph % (Auto) 34.7 % (13.4-35.0) 12/29/18 05:30 Bath % (Auto) 11.7 % (0.0-7.3) H 12/29/18 05:30 Eos % (Auto) 3.1 % (0.0-4.3) 12/29/18 05:30 Baso % (Auto) 0.8 % (0.0-1.8) 12/29/18 05:30 Lymph # 1.3 K/mm3 (1.2-5.4) 12/29/18 05:30 Bath # 0.4 K/mm3 (0.0-0.8) 12/29/18 05:30 Eos # 0.1 K/mm3 (0.0-0.4) 12/29/18 05:30 Baso # 0.0 K/mm3 (0.0-0.1) 12/29/18 05:30 Seg Neutrophils % 49.7 % (40.0-70.0) 12/29/18 05:30 Seg Neutrophils # 1.9 K/mm3 (1.8-7.7) 12/29/18 05:30 PT 17.1 Sec. (12.2-14.9) H 12/28/18 12:43 INR 1.41 (0.87-1.13) H 12/28/18 12:43 APTT 31.8 Sec. (24.2-36.6) 12/28/18 12:43 Sodium 145 mmol/L (137-145) 12/29/18 05:30 Potassium 6.8 mmol/L (3.6-5.0) H* 12/29/18 05:30 Chloride 104.4 mmol/L (98-107) 12/29/18 05:30 Carbon Dioxide 20 mmol/L (22-30) L D 12/29/18 05:30 Anion Gap 27 mmol/L 12/29/18 05:30 BUN 94 mg/dL (9-20) H 12/29/18 05:30 Creatinine 20.0 mg/dL (0.8-1.5) H 12/29/18 05:30 Estimated GFR 3 ml/min 12/29/18 05:30 BUN/Creatinine Ratio 5 % 12/29/18 05:30 Glucose 86 mg/dL (75-100) 12/29/18 05:30 POC Glucose 74 (70-105) 12/28/18 17:33 Calcium 6.6 mg/dL (8.4-10.2) L 12/29/18 05:30 Total Bilirubin 1.20 mg/dL (0.1-1.2) 12/29/18 05:30 AST < 5 units/L (5-40) L 12/29/18 05:30 ALT 9 units/L (7-56) 12/29/18 05:30 Alkaline Phosphatase 174 units/L (35-129) H 12/29/18 05:30 Troponin T 0.063 ng/mL (0.00-0.029) H 12/28/18 17:23 Total Protein 6.1 g/dL (6.3-8.2) L 12/29/18 05:30 Albumin 3.4 g/dL (3.9-5) L 12/29/18 05:30 Albumin/Globulin Ratio 1.3 % 12/29/18 05:30 Triglycerides 156 mg/dL (2-149) H 12/28/18 12:43 Cholesterol 127 mg/dL (50-199) 12/28/18 12:43 LDL Cholesterol Direct 50 mg/dL (50-130) 12/28/18 12:43 HDL Cholesterol 57 mg/dL (40-59) 12/28/18 12:43 Cholesterol/HDL Ratio 2.22 % 12/28/18 12:43 Lipase 47 units/L (13-60) 12/28/18 12:43 Prostate Specific Ag 7.56 ng/mL (0.00-4.00) H 12/28/18 19:56 Hepatitis A IgM Ab Non-reactive (NonReactive) 12/29/18 10:25 Hep Bs Antigen Non-reactive (Negative) 12/29/18 10:25 Hep B Core IgM Ab Non-reactive (NonReactive) 12/29/18 10:25 Hepatitis C Antibody Non-reactive (NonReactive) 12/29/18 10:25 Active Medications - Current Medications Current Medications: Generic Name Dose Route Start Last Admin Trade Name Freq PRN Reason Stop Dose Admin Acetaminophen 650 mg 12/28/18 17:12 Tylenol PO Q4H PRN Pain MILD(1-3)/Fever >100.5/STARK Aspirin 81 mg 12/29/18 10:00 12/29/18 09:41 Halfprin Ec PO 81 mg QDAY BRANDEE Administration Atorvastatin Calcium 20 mg 12/28/18 22:00 12/28/18 22:05 Lipitor PO 20 mg QHS BRANDEE Administration Calcitriol 0.5 mcg 12/29/18 10:00 Rocaltrol PO QDAY BRANDEE Carvedilol 12.5 mg 12/28/18 22:00 12/28/18 22:05 Coreg PO 12.5 mg BID BRANDEE Administration Sodium Chloride 100 mls @ 999 mls/hr 12/29/18 09:17 Nacl 0.9% IV MARGARET PRN Hypotension Lisinopril 40 mg 12/29/18 10:00 Zestril PO QDAY BRANDEE Nifedipine 30 mg 12/29/18 10:00 Procardia Xl PO QDAY BRANDEE Ondansetron HCl 4 mg 12/28/18 17:12 12/28/18 19:08 Zofran IV 4 mg Q8H PRN Administration Nausea And Vomiting Oxycodone/Acetaminophen 1 tab 12/28/18 18:00 12/29/18 06:48 Percocet 5/325 PO 1 tab Q4HR BRANDEE Administration Pantoprazole Sodium 40 mg 12/28/18 22:00 12/29/18 09:41 Protonix PO 40 mg BID BRANDEE Administration Pantoprazole Sodium 20 mg 12/29/18 10:00 Protonix PO QDAY BRANDEE Sevelamer Carbonate 800 mg 12/29/18 10:00 12/29/18 09:41 Renvela PO 800 mg DAILY@0800 BRANDEE Administration Sodium Chloride 10 ml 12/28/18 22:00 12/28/18 22:06 Sodium Chloride Flush Syringe 10 Ml IV 10 ml BID BRANDEE Administration Sodium Chloride 10 ml 12/28/18 17:12 Sodium Chloride Flush Syringe 10 Ml IV PRN PRN LINE FLUSH Tamsulosin HCl 0.4 mg 12/29/18 10:00 12/29/18 09:41 Flomax PO 0.4 mg DAILY BRANDEE Administration
[2018-12-29] MEDS: CALCITRIOL 0.5 MCG CAP PO SCH (15:09)
[2018-12-29] MEDS: LISINOPRIL 40 MG TAB PO SCH (15:10)
[2018-12-29] MEDS: NIFEdipine XL 30 MG TAB PO SCH (15:10)
[2018-12-29] MEDS: carvediloL 12.5 MG TAB PO SCH ×2 (15:10→21:46)
--- NOTE | 2018-12-29 15:42 | Consultation ---
History of Present Illness - Reason for Consult Consult date: 12/29/18 end stage renal disease - History of Present Illness This is a 63 year old man with ESRD on HD (,, ), HTN, CHF, GERD who presents to ED for shortness of breath, fatigue, and abdominal discomfort. Has missed past 2 dialysis sessions because of his abdominal discomfort. Usually dialyzes in [facility] dialysis unit. In ED, found to have hyperkalemia and acidosis. At time of consult, patient is seen on HD. He denies any cramping or dizziness. He does note dyspnea at times. Pt denies fever, chills, BRBPR. No chest pain. Past History Past Medical History: other (see hpi) Past Surgical History: Other (Dialysis access) Social history: . denies: smoking, alcohol abuse, prescription drug abuse Family history: hypertension Medications and Allergies Allergies Allergy/AdvReac Type Severity Reaction Status Date / Time No Known Allergies Allergy Verified 09/04/18 19:38 Home Medications Medication Instructions Recorded Confirmed Last Taken Type RX: Cefuroxime Axetil [Ceftin] 500 mg PO Q48H #3 ml 12/23/17 12/28/18 Unknown Rx RX: Omeprazole 20 mg PO DAILY #30 tablet. 01/29/18 12/28/18 Unknown Rx RX: Sevelamer Carbonate [Renvela] 800 mg PO DAILY #30 tablet 01/29/18 12/28/18 Unknown Rx RX: Aspirin EC [Halfprin EC] 81 mg PO QDAY #30 tablet. 09/10/18 12/28/18 Unknown Rx RX: AtorvaSTATin [Lipitor] 20 mg PO QHS #30 tablet 09/10/18 12/28/18 Unknown Rx RX: Calcitriol [Rocaltrol] 0.5 mcg PO QDAY #30 capsule 09/10/18 12/28/18 Unknown Rx RX: Lisinopril [Zestril TAB] 40 mg PO QDAY #30 tablet 09/10/18 12/28/18 Unknown Rx RX: NIFEdipine [Nifedipine ER] 30 mg PO DAILY #30 tablet.er 09/10/18 12/28/18 Unknown Rx RX: Pantoprazole [Protonix TAB] 40 mg PO BID #60 tablet 09/10/18 12/28/18 Unknown Rx RX: Tamsulosin [Flomax] 1 cap PO DAILY #30 capsule 09/10/18 12/28/18 Unknown Rx RX: carvediloL [Coreg] 12.5 mg PO BID #30 tablet 09/10/18 12/28/18 Unknown Rx RX: oxyCODONE /ACETAMINOPHEN 1 tab PO Q4HR #10 tab 09/10/18 12/28/18 Unknown Rx [Percocet 5/325 mg] Active Meds: Active Medications Acetaminophen (Tylenol) 650 mg PO Q4H PRN PRN Reason: Pain MILD(1-3)/Fever >100.5/STARK Aspirin (Halfprin Ec) 81 mg PO QDAY [facility] Last Admin: 12/29/18 09:41 Dose: 81 mg Documented by: Atorvastatin Calcium (Lipitor) 20 mg PO QHS [facility] Last Admin: 12/28/18 22:05 Dose: 20 mg Documented by: Calcitriol (Rocaltrol) 0.5 mcg PO QDAY [facility] Last Admin: 12/29/18 15:09 Dose: Not Given Documented by: Carvedilol (Coreg) 12.5 mg PO BID [facility] Last Admin: 12/29/18 15:10 Dose: 12.5 mg Documented by: Sodium Chloride (Nacl 0.9%) 100 mls @ 999 mls/hr IV MARGARET PRN PRN Reason: Hypotension Lisinopril (Zestril) 40 mg PO QDAY [facility] Last Admin: 12/29/18 15:10 Dose: 40 mg Documented by: Nifedipine (Procardia Xl) 30 mg PO QDAY [facility] Last Admin: 12/29/18 15:10 Dose: 30 mg Documented by: Ondansetron HCl (Zofran) 4 mg IV Q8H PRN PRN Reason: Nausea And Vomiting Last Admin: 12/28/18 19:08 Dose: 4 mg Documented by: Oxycodone/Acetaminophen (Percocet 5/325) 1 tab PO Q4HR [facility] Last Admin: 12/29/18 15:11 Dose: Not Given Documented by: Pantoprazole Sodium (Protonix) 40 mg PO BID [facility] Last Admin: 12/29/18 09:41 Dose: 40 mg Documented by: Sevelamer Carbonate (Renvela) 800 mg PO DAILY@0800 [facility] Last Admin: 12/29/18 09:41 Dose: 800 mg Documented by: Sodium Chloride (Sodium Chloride Flush Syringe 10 Ml) 10 ml IV BID [facility] Last Admin: 12/29/18 15:10 Dose: 10 ml Documented by: Sodium Chloride (Sodium Chloride Flush Syringe 10 Ml) 10 ml IV PRN PRN PRN Reason: LINE FLUSH Tamsulosin HCl (Flomax) 0.4 mg PO DAILY [facility] Last Admin: 12/29/18 09:41 Dose: 0.4 mg Documented by: Review of Systems All systems: negative (as per HPI) Exam - Vital Signs Vital signs: Vital Signs Temp Pulse Resp BP Pulse Ox 97.8 F 83 22 182/106 96 12/28/18 12:33 12/28/18 12:33 12/28/18 12:33 12/28/18 12:33 12/28/18 12:33 CVC Qb 350ml/min - General Appearance General appearance: well-developed, well-nourished, appears stated age EENT: PERRL, mucous membranes moist Neck: Present: neck supple, trachea midline Respiratory: Clear to Ascultation, Other (on NC) Heart: regular, S1S2 Gastrointestinal: Present: normoactive bowel sounds. Absent: tenderness, disten ded Integumentary: no rash Neurologic: no focal deficit, no asterixis Psychiatric: mood/affect appropriate Results - Lab Results 12/29/18 05:30 12/29/18 05:30 Most recent lab results Calcium 6.6 mg/dL (8.4-10.2) L 12/29/18 05:30 Assessment and Plan This is a 63 year old man with ESRD who presents with dyspnea, fatigue, and hyperkalemia # ESRD on HD: dialyzed today for hyperkalemia to 6.8 - will plan for additional HD tomorrow, then will continue // per outpatient schedule - avoid nephrotoxins - access: CVC # Hyperkalemia: 2K bath # Acidosis: likely in setting of missed HD # Anemia of CKD: will plan for ESAs if remains inpatient for hemoglobin goal # Secondary hyperparathyroidism: 3meq Ca bath for hypocalcemia; will use vitamin D analogs if needed # CHF/HTN/volume overload: UF as tolerated. BP reasonable Thank you for this consult; our team will continue to follow for renal related issues
[2018-12-29] MEDS ORDERED: EPOETIN ALFA 2,000 UNIT/1 ML VIAL IV PRN (15:52)
[2018-12-29] MEDS: ONDANSETRON 4 MG/2 ML INJ IV PRN (18:09)
[2018-12-30] MEDS: oxyCODONE /ACETAMINOPHEN 5-325MG TAB PO SCH ×6 (02:23→22:29)
[2018-12-30] MEDS: PANTOPRAZOLE 40 MG TAB PO SCH ×2 (09:09→22:29)
[2018-12-30] MEDS: TAMSULOSIN 0.4 MG CAP PO SCH (09:09)
[2018-12-30] MEDS: CALCITRIOL 0.5 MCG CAP PO SCH (09:09)
[2018-12-30] MEDS: ASPIRIN EC 81 MG TAB PO SCH (09:09)
[2018-12-30] MEDS: SEVELAMER CARBONATE 800 MG TAB PO SCH (09:13)
--- NOTE | 2018-12-30 09:55 | Consultation ---
History of Present Illness Consult date: 12/30/18 Requesting physician: MANAV TINOCO Consult reason: congestive heart failure History of present illness: The patient is a 63 y/o male with a past medical history of HTN, ESRD on HD, HF, NICMP, HFrEF, TIA, CVA, severe TR. He is followed in our office by Dr. Weeks. He presented with c/o abdominal pain, nausea and vomiting for the past several days. His symptoms caused him to miss dialysis for approx 3-4 sessions. He denies any chest pain, SOB, palpitations, dizziness or syncope. He underwent dialysis yesterday and reports he is feeling better today. Echo done 09/2018 showed EF 40%, grade 2 diastolic dysfunction, mod to severe TR, RVSP 72mmHg, severely dilated RA, mildly enlarged RV size, mildly reduced RV s ystolic function. Lexiscan MPI stress test done 12/22/2017 was negative for active ischemia, EF 40%. Findings c/w NICMP. Past History Past Medical History: other (see hpi) Past Surgical History: Other (Dialysis access) Social history: . denies: smoking, alcohol abuse, prescription drug abuse Family history: hypertension Medications and Allergies Allergies Allergy/AdvReac Type Severity Reaction Status Date / Time No Known Allergies Allergy Verified 09/04/18 19:38 Home Medications Medication Instructions Recorded Confirmed Last Taken Type Cefuroxime Axetil [Ceftin] 500 mg PO Q48H #3 ml 12/23/17 12/28/18 Unknown Rx Omeprazole 20 mg PO DAILY #30 tablet. 01/29/18 12/28/18 Unknown Rx Sevelamer Carbonate [Renvela] 800 mg PO DAILY #30 tablet 01/29/18 12/28/18 Unknown Rx Aspirin EC [Halfprin EC] 81 mg PO QDAY #30 tablet. 09/10/18 12/28/18 Unknown Rx AtorvaSTATin [Lipitor] 20 mg PO QHS #30 tablet 09/10/18 12/28/18 Unknown Rx Calcitriol [Rocaltrol] 0.5 mcg PO QDAY #30 capsule 09/10/18 12/28/18 Unknown Rx Lisinopril [Zestril TAB] 40 mg PO QDAY #30 tablet 09/10/18 12/28/18 Unknown Rx NIFEdipine [Nifedipine ER] 30 mg PO DAILY #30 tablet.er 09/10/18 12/28/18 Unknown Rx Pantoprazole [Protonix TAB] 40 mg PO BID #60 tablet 09/10/18 12/28/18 Unknown Rx Tamsulosin [Flomax] 1 cap PO DAILY #30 capsule 09/10/18 12/28/18 Unknown Rx carvediloL [Coreg] 12.5 mg PO BID #30 tablet 09/10/18 12/28/18 Unknown Rx oxyCODONE /ACETAMINOPHEN [Percocet 1 tab PO Q4HR #10 tab 09/10/18 12/28/18 Unknown Rx 5/325 mg] Active Meds: Active Medications Acetaminophen (Tylenol) 650 mg PO Q4H PRN PRN Reason: Pain MILD(1-3)/Fever >100.5/STARK Aspirin (Halfprin Ec) 81 mg PO QDAY [facility] Last Admin: 12/30/18 09:09 Dose: 81 mg Documented by: Atorvastatin Calcium (Lipitor) 20 mg PO QHS [facility] Last Admin: 12/29/18 21:44 Dose: 20 mg Documented by: Calcitriol (Rocaltrol) 0.5 mcg PO QDAY [facility] Last Admin: 12/30/18 09:09 Dose: 0.5 mcg Documented by: Carvedilol (Coreg) 12.5 mg PO BID [facility] Last Admin: 12/29/18 21:46 Dose: Not Given Documented by: Epoetin Matthew (Procrit) 2,000 unit IV MARGARET PRN PRN Reason: hemodialysis Sodium Chloride (Nacl 0.9%) 100 mls @ 999 mls/hr IV MARGARET PRN PRN Reason: Hypotension Lisinopril (Zestril) 40 mg PO QDAY [facility] Last Admin: 12/29/18 15:10 Dose: 40 mg Documented by: Nifedipine (Procardia Xl) 30 mg PO QDAY [facility] Last Admin: 12/29/18 15:10 Dose: 30 mg Documented by: Ondansetron HCl (Zofran) 4 mg IV Q8H PRN PRN Reason: Nausea And Vomiting Last Admin: 12/29/18 18:09 Dose: 4 mg Documented by: Oxycodone/Acetaminophen (Percocet 5/325) 1 tab PO Q4HR [facility] Last Admin: 12/30/18 09:09 Dose: 1 tab Documented by: Pantoprazole Sodium (Protonix) 40 mg PO BID [facility] Last Admin: 12/30/18 09:09 Dose: 40 mg Documented by: Sevelamer Carbonate (Renvela) 800 mg PO DAILY@0800 [facility] Last Admin: 12/30/18 09:13 Dose: 800 mg Documented by: Sodium Chloride (Sodium Chloride Flush Syringe 10 Ml) 10 ml IV BID [facility] Last Admin: 12/30/18 09:10 Dose: 10 ml Documented by: Sodium Chloride (Sodium Chloride Flush Syringe 10 Ml) 10 ml IV PRN PRN PRN Reason: LINE FLUSH Tamsulosin HCl (Flomax) 0.4 mg PO DAILY [facility] Last Admin: 12/30/18 09:09 Dose: 0.4 mg Documented by: Review of Systems Constitutional: no weight loss, no weight gain, no fever, no chills, no sweats Ears, nose, mouth and throat: no ear pain, no nose pain, no sinus pressure, no sinus pain Cardiovascular: no chest pain, no orthopnea, no palpitations, no rapid/irregular heart beat, no edema, no syncope, no lightheadedness, no shortness of breath, no dyspnea on exertion, no leg edema Respiratory: no cough, no shortness of breath, no dyspnea on exertion, no congestion, no wheezing, no pain on inspiration Gastrointestinal: abdominal pain, nausea, vomiting, no diarrhea, no constipation, no change in bowel habits Musculoskeletal: no neck stiffness, no neck pain, no shooting arm pain, no arm numbness/tingling, no low back pain, no shooting leg pain Integumentary: no rash, no pruritis, no redness, no sores, no wounds Neurological: no head injury, no paralysis, no weakness, no parathesias, no numbness, no tingling, no seizures, no syncope Psychiatric: no anxiety Endocrine: no cold intolerance, no heat intolerance Hematologic/Lymphatic: no easy bruising, no easy bleeding Allergic/Immunologic: no urticaria, no wheezing Physical Examination Vital Signs Temp Pulse Resp BP Pulse Ox 97.8 F 83 22 182/106 96 12/28/18 12:33 12/28/18 12:33 12/28/18 12:33 12/28/18 12:33 12/28/18 12:33 General appearance: no acute distress HEENT: Positive: PERRL, Normocephaly, Mucus Membranes Moist Neck: Positive: neck supple, trachea midline Cardiac: Positive: Reg Rate and Rhythm, S1/S2 Lungs: Positive: Decreased Breath Sounds Neuro: Positive: Grossly Intact Abdomen: Negative: Tender Skin: Negative: Rash Musculoskeletal: No Pain Extremities: Absent: edema Results 12/29/18 05:30 12/29/18 05:30 Comprehensive Metabolic Panel 12/28/18 12/28/18 Range/Units 10:25 15:23 Sodium 139 (137-145) mmol/L Potassium 5.5 H 7.4 H* D (3.6-5.0) mmol/L Chloride 101.4 (98-107) mmol/L Carbon Dioxide 13 L (22-30) mmol/L BUN 91 H (9-20) mg/dL Creatinine 18.0 H (0.8-1.5) mg/dL Glucose 72 L (75-100) mg/dL Calcium 7.0 L (8.4-10.2) mg/dL - Imaging and Cardiology Echo: report reviewed (09/2018 showed EF 40%, grade 2 diastolic dysfunction, mod to severe TR, RVSP 72mmHg, severely dilated RA, mildly enlarged RV size, mildly reduced RV systolic function. ) EKG: report reviewed, image reviewed EKG interpretations - Telemetry EKG Rhythm: Sinus Rhythm - EKG Sinus rhythms and dysrhythmias: sinus rhythm Assessment and Plan Agree with present cardiac management. Cont volume optimization and electrolyte management per nephrology. The patient has been seen in conjunction with Dr. Quintero who agrees with the assessment and plan of care. - Patient Problems (1) Abdominal pain Current Visit: Yes Status: Acute (2) Nausea & vomiting Current Visit: Yes Status: Acute (3) ESRD needing dialysis Current Visit: Yes Status: Chronic (4) Hyperkalemia Current Visit: Yes Status: Acute (5) Fluid overload Current Visit: Yes Status: Acute (6) NICM (nonischemic cardiomyopathy) Current Visit: Yes Status: Chronic (7) HTN (hypertension) Current Visit: No Status: Chronic Qualifiers: Hypertension type: unspecified Qualified Code(s): I10 - Essential (primary) hypertension (8) History of CVA (cerebrovascular accident) Current Visit: Yes Status: Chronic (9) Hyperkalemia, transcellular shifts Current Visit: Yes Status: Acute (10) Severe tricuspid regurgitation Current Visit: Yes Status: Chronic
[2018-12-30] MEDS: LISINOPRIL 40 MG TAB PO SCH (10:00)
[2018-12-30] MEDS ORDERED: SODIUM CHLORIDE*PRIMING MACHINE ONLY FOR DIALYSIS MC ONE (10:24)
[2018-12-30] MEDS: ONDANSETRON 4 MG/2 ML INJ IV PRN (10:27)
[2018-12-30 11:04] LABS: Calcium 5.7 mg/dL (8.4-10.2)
--- NOTE | 2018-12-30 11:17 | Progress Note ---
Assessment and Plan This is a 63 year old man with ESRD who presents with dyspnea, fatigue, and hyperkalemia # ESRD on HD: dialyzed yesterday for hyperkalemia to 6.8 - will continue // per outpatient schedule from now on; seen on HD today - avoid nephrotoxins - access: CVC # Hyperkalemia: 2K bath, now resolved # Acidosis: likely in setting of missed HD, now improved # Anemia of CKD: will plan for ESAs if remains inpatient for hemoglobin goal - # Secondary hyperparathyroidism: 3meq Ca bath for hypocalcemia; continue vitamin D analogs # CHF/HTN/volume overload: UF as tolerated. BP reasonable Thank you for this consult; our team will continue to follow for renal related issues Subjective Date of service: 12/30/18 Principal diagnosis: hyperkalemia Interval history: No acute events noted overnight. Had HD yesterday without issues; seen again today on HD. Notes feeling cold, but otherwise well. No cramping, no lightheadedness. No chest pain or shortness of breath. Objective - Exam Narrative Exam: General appearance: well-developed, well-nourished, appears stated age EENT: PERRL, mucous membranes moist Neck: Present: neck supple, trachea midline Respiratory: Clear to Ascultation, Other (on NC) Heart: regular, S1S2 Gastrointestinal: Present: normoactive bowel sounds. Absent: tenderness, distended Integumentary: no rash Neurologic: no focal deficit, no asterixis Psychiatric: mood/affect appropriate - Vital Signs Vital signs: Vital Signs - 12hr 12/29/18 12/30/18 12/30/18 23:38 05:43 08:34 Temperature 98.2 F 98.3 F Pulse Rate 73 67 Respiratory 20 16 Rate Blood Pressure 101/52 100/55 O2 Sat by Pulse 95 96 96 Oximetry 12/30/18 12/30/18 09:14 09:39 Temperature 97.6 F Pulse Rate 65 Respiratory 16 Rate Blood Pressure 107/69 111/72 O2 Sat by Pulse Oximetry Seen on HD AVF with Qb 450ml/min - Lab 12/29/18 05:30 12/30/18 09:55 Most recent lab results Calcium 5.7 mg/dL (8.4-10.2) L* 12/30/18 09:55 Medications & Allergies - Medications Allergies/Adverse Reactions: Allergies No Known Allergies Allergy (Verified 09/04/18 19:38) Home Medications: Home Medications Medication Instructions Recorded Confirmed Last Taken Type Cefuroxime Axetil [Ceftin] 500 mg PO Q48H #3 ml 12/23/17 12/28/18 Unknown Rx Omeprazole 20 mg PO DAILY #30 tablet. 01/29/18 12/28/18 Unknown Rx Sevelamer Carbonate [Renvela] 800 mg PO DAILY #30 tablet 01/29/18 12/28/18 Unknown Rx Aspirin EC [Halfprin EC] 81 mg PO QDAY #30 tablet. 09/10/18 12/28/18 Unknown Rx AtorvaSTATin [Lipitor] 20 mg PO QHS #30 tablet 09/10/18 12/28/18 Unknown Rx Calcitriol [Rocaltrol] 0.5 mcg PO QDAY #30 capsule 09/10/18 12/28/18 Unknown Rx Lisinopril [Zestril TAB] 40 mg PO QDAY #30 tablet 09/10/18 12/28/18 Unknown Rx NIFEdipine [Nifedipine ER] 30 mg PO DAILY #30 tablet.er 09/10/18 12/28/18 Unknown Rx Pantoprazole [Protonix TAB] 40 mg PO BID #60 tablet 09/10/18 12/28/18 Unknown Rx Tamsulosin [Flomax] 1 cap PO DAILY #30 capsule 09/10/18 12/28/18 Unknown Rx carvediloL [Coreg] 12.5 mg PO BID #30 tablet 09/10/18 12/28/18 Unknown Rx oxyCODONE /ACETAMINOPHEN [Percocet 1 tab PO Q4HR #10 tab 09/10/18 12/28/18 Unknown Rx 5/325 mg] Active Medications: Generic Name Dose Route Start Last Admin Trade Name Freq PRN Reason Stop Dose Admin Acetaminophen 650 mg 12/28/18 17:12 Tylenol PO Q4H PRN Pain MILD(1-3)/Fever >100.5/STARK Aspirin 81 mg 12/29/18 10:00 12/30/18 09:09 Halfprin Ec PO 81 mg QDAY BRNADEE Administration Atorvastatin Calcium 20 mg 12/28/18 22:00 12/29/18 21:44 Lipitor PO 20 mg QHS BRANDEE Administration Calcitriol 0.5 mcg 12/29/18 10:00 12/30/18 09:09 Rocaltrol PO 0.5 mcg QDAY BRANDEE Administration Carvedilol 12.5 mg 12/28/18 22:00 12/29/18 21:46 Coreg PO Not Given BID BRANDEE Epoetin Matthew 2,000 unit 12/29/18 15:52 Procrit IV MARGARET PRN hemodialysis Sodium Chloride 100 mls @ 999 mls/hr 12/29/18 15:52 Nacl 0.9% IV MARGARET PRN Hypotension Lisinopril 40 mg 12/29/18 10:00 12/29/18 15:10 Zestril PO 40 mg QDAY BRANDEE Administration Nifedipine 30 mg 12/29/18 10:00 12/29/18 15:10 Procardia Xl PO 30 mg QDAY BRANDEE Administration Ondansetron HCl 4 mg 12/28/18 17:12 12/30/18 10:27 Zofran IV 4 mg Q8H PRN Administration Nausea And Vomiting Oxycodone/Acetaminophen 1 tab 12/28/18 18:00 12/30/18 09:09 Percocet 5/325 PO 1 tab Q4HR BRANDEE Administration Pantoprazole Sodium 40 mg 12/28/18 22:00 12/30/18 09:09 Protonix PO 40 mg BID BRANDEE Administration Sevelamer Carbonate 800 mg 12/29/18 10:00 12/30/18 09:13 Renvela PO 800 mg DAILY@0800 BRANDEE Administration Sodium Chloride 10 ml 12/28/18 22:00 12/30/18 09:10 Sodium Chloride Flush Syringe 10 Ml IV 10 ml BID BRANDEE Administration Sodium Chloride 10 ml 12/28/18 17:12 Sodium Chloride Flush Syringe 10 Ml IV PRN PRN LINE FLUSH Tamsulosin HCl 0.4 mg 12/29/18 10:00 12/30/18 09:09 Flomax PO 0.4 mg DAILY BRANDEE Administration
--- NOTE | 2018-12-30 11:31 | Progress Note ---
Assessment and Plan Assessment and plan: ESRD. Nephrology following. Hemodialysis per nephrology. Hyperkalemia. Continue hemodialysis. Acute systolic heart failure. Etiology secondary to volume overload. Exercise stress test completed December 2017 revealed an EF of 40% but no ischemia. Nonischemic dilated cardiomyopathy. Cardiology consultation. GERD. Continue PPI. Hypertension. Continue home antihypertensive medications. History Interval history: No new issues overnight. Patient seen and hemodialysis. Patient reports his last hemodialysis was Thursday week ago. Hospitalist Physical - Constitutional Vitals: Temp Pulse Resp BP Pulse Ox 97.6 F 65 16 111/72 96 12/30/18 09:39 12/30/18 09:39 12/30/18 09:39 12/30/18 09:39 12/30/18 08:34 General appearance: Present: no acute distress - EENT Eyes: Present: PERRL, EOM intact ENT: hearing intact, clear oral mucosa, dentition normal - Neck Neck: Present: supple, normal ROM - Respiratory Respiratory effort: normal Respiratory: bilateral: CTA - Cardiovascular Rhythm: regular Heart Sounds: Present: S1 & S2. Absent: gallop, rub - Extremities Extremities: no ischemia, No edema, Full ROM - Abdominal General gastrointestinal: soft, non-tender, non-distended, normal bowel sounds - Integumentary Integumentary: Present: clear, warm, dry - Neurologic Neurologic: CNII-XII intact, moves all extremities Results - Labs CBC & Chem 7: 12/29/18 05:30 12/30/18 09:55 Labs: Laboratory Last Values WBC 3.8 K/mm3 (4.5-11.0) L 12/29/18 05:30 RBC 3.03 M/mm3 (3.65-5.03) L 12/29/18 05:30 Hgb 9.2 gm/dl (11.8-15.2) L 12/29/18 05:30 Hct 28.4 % (35.5-45.6) L 12/29/18 05:30 MCV 94 fl (84-94) 12/29/18 05:30 MCH 30 pg (28-32) 12/29/18 05:30 MCHC 32 % (32-34) 12/29/18 05:30 RDW 17.1 % (13.2-15.2) H 12/29/18 05:30 Plt Count 169 K/mm3 (140-440) 12/29/18 05:30 Lymph % (Auto) 34.7 % (13.4-35.0) 12/29/18 05:30 [place] % (Auto) 11.7 % (0.0-7.3) H 12/29/18 05:30 Eos % (Auto) 3.1 % (0.0-4.3) 12/29/18 05:30 Baso % (Auto) 0.8 % (0.0-1.8) 12/29/18 05:30 Lymph # 1.3 K/mm3 (1.2-5.4) 12/29/18 05:30 [place] # 0.4 K/mm3 (0.0-0.8) 12/29/18 05:30 Eos # 0.1 K/mm3 (0.0-0.4) 12/29/18 05:30 Baso # 0.0 K/mm3 (0.0-0.1) 12/29/18 05:30 Seg Neutrophils % 49.7 % (40.0-70.0) 12/29/18 05:30 Seg Neutrophils # 1.9 K/mm3 (1.8-7.7) 12/29/18 05:30 PT 17.1 Sec. (12.2-14.9) H 12/28/18 12:43 INR 1.41 (0.87-1.13) H 12/28/18 12:43 APTT 31.8 Sec. (24.2-36.6) 12/28/18 12:43 Sodium 143 mmol/L (137-145) 12/30/18 09:55 Potassium 4.5 mmol/L (3.6-5.0) D 12/30/18 09:55 Chloride 99.7 mmol/L (98-107) 12/30/18 09:55 Carbon Dioxide 22 mmol/L (22-30) 12/30/18 09:55 Anion Gap 26 mmol/L 12/30/18 09:55 BUN 57 mg/dL (9-20) H 12/30/18 09:55 Creatinine 13.5 mg/dL (0.8-1.5) H 12/30/18 09:55 Estimated GFR 5 ml/min 12/30/18 09:55 BUN/Creatinine Ratio 4 % 12/30/18 09:55 Glucose 100 mg/dL (75-100) 12/30/18 09:55 POC Glucose 74 (70-105) 12/28/18 17:33 Calcium 5.7 mg/dL (8.4-10.2) L* 12/30/18 09:55 Total Bilirubin 1.20 mg/dL (0.1-1.2) 12/29/18 05:30 AST < 5 units/L (5-40) L 12/29/18 05:30 ALT 9 units/L (7-56) 12/29/18 05:30 Alkaline Phosphatase 174 units/L (35-129) H 12/29/18 05:30 Troponin T 0.063 ng/mL (0.00-0.029) H 12/28/18 17:23 Total Protein 6.1 g/dL (6.3-8.2) L 12/29/18 05:30 Albumin 3.4 g/dL (3.9-5) L 12/29/18 05:30 Albumin/Globulin Ratio 1.3 % 12/29/18 05:30 Triglycerides 156 mg/dL (2-149) H 12/28/18 12:43 Cholesterol 127 mg/dL (50-199) 12/28/18 12:43 LDL Cholesterol Direct 50 mg/dL (50-130) 12/28/18 12:43 HDL Cholesterol 57 mg/dL (40-59) 12/28/18 12:43 Cholesterol/HDL Ratio 2.22 % 12/28/18 12:43 Lipase 47 units/L (13-60) 12/28/18 12:43 Prostate Specific Ag 7.56 ng/mL (0.00-4.00) H 12/28/18 19:56 Hepatitis A IgM Ab Non-reactive (NonReactive) 12/29/18 10:25 Hep Bs Antigen Non-reactive (Negative) 12/29/18 10:25 Hep B Core IgM Ab Non-reactive (NonReactive) 12/29/18 10:25 Hepatitis C Antibody Non-reactive (NonReactive) 12/29/18 10:25 Active Medications - Current Medications Current Medications: Generic Name Dose Route Start Last Admin Trade Name Freq PRN Reason Stop Dose Admin Acetaminophen 650 mg 12/28/18 17:12 Tylenol PO Q4H PRN Pain MILD(1-3)/Fever >100.5/STARK Aspirin 81 mg 12/29/18 10:00 12/30/18 09:09 Halfprin Ec PO 81 mg QDAY BRANDEE Administration Atorvastatin Calcium 20 mg 12/28/18 22:00 12/29/18 21:44 Lipitor PO 20 mg QHS BRANDEE Administration Calcitriol 0.5 mcg 12/29/18 10:00 12/30/18 09:09 Rocaltrol PO 0.5 mcg QDAY BRAN[facility]E Administration Carvedilol 12.5 mg 12/28/18 22:00 12/29/18 21:46 Coreg PO Not Given BID BRANDEE Epoetin Matthew 2,000 unit 12/29/18 15:52 Procrit IV MARGARET PRN hemodialysis Sodium Chloride 100 mls @ 999 mls/hr 12/29/18 15:52 Nacl 0.9% IV MARGARET PRN Hypotension Lisinopril 40 mg 12/29/18 10:00 12/29/18 15:10 Zestril PO 40 mg QDAY BRAN[facility]E Administration Nifedipine 30 mg 12/29/18 10:00 12/29/18 15:10 Procardia Xl PO 30 mg QDAY BRAN[facility]E Administration Ondansetron HCl 4 mg 12/28/18 17:12 12/30/18 10:27 Zofran IV 4 mg Q8H PRN Administration Nausea And Vomiting Oxycodone/Acetaminophen 1 tab 12/28/18 18:00 12/30/18 09:09 Percocet 5/325 PO 1 tab Q4HR BRANDEE Administration Pantoprazole Sodium 40 mg 12/28/18 22:00 12/30/18 09:09 Protonix PO 40 mg BID BRANDEE Administration Sevelamer Carbonate 800 mg 12/29/18 10:00 12/30/18 09:13 Renvela PO 800 mg DAILY@0800 BRANDEE Administration Sodium Chloride 10 ml 12/28/18 22:00 12/30/18 09:10 Sodium Chloride Flush Syringe 10 Ml IV 10 ml BID BRANDEE Administration Sodium Chloride 10 ml 12/28/18 17:12 Sodium Chloride Flush Syringe 10 Ml IV PRN PRN LINE FLUSH Tamsulosin HCl 0.4 mg 12/29/18 10:00 12/30/18 09:09 Flomax PO 0.4 mg DAILY BRANDEE Administration Nutrition/Malnutrition Assess - Dietary Evaluation Nutrition/Malnutrition Findings: Nutrition Notes Start: 12/29/18 15:44 Freq: Status: Active Protocol: Document 12/29/18 15:44 RM (Rec: 12/29/18 15:54 RM [id number]) Nutrition Notes Need for Assessment generated from: [facility] Initial or Follow up Assessment Current Diagnosis Hypertension,Heart Failure Other Pertinent Diagnosis ESRD on HD (T/Th/Sat), GERD, Abdominal discomfort Current Diet Renal Labs/Tests Reviewed Pertinent Medications Zofran Height 5 ft 7 in Weight 73.4 kg Usual Body Weight 71 kg [place] Body Weight (kg) 67.27 BMI 25.3 Subjective/Other Information Screened for malnutrition. 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 Stated that his appetite is the same now and that he eats half of his meals but vomits afterwards. Stated he can keep down liquids. Declined Nepro d/t disliking the taste but agreed to trial of Ensure Clear. Stated dry wt is 71 kg. No physical signs of malnutrition. Burn Absent Trauma Absent GI Symptoms Nausea,Vomiting Minimum of two criteria No #1 Nutrition Diagnosis Inadequate oral intake Etiology decreased appetite, vomiting As Evidenced by Signs and Symptoms pt statement that he eats half of his meals and vomits afterwards Is patient on ventilator? No Is Patient Ambulatory and/or Out of Bed Yes REE-([facility]-ambulatory/OOB) [ [id number] [id number]] Calculation Used for Recommendations [facility] Additional Notes Protein Needs: 88g (>1.2g/kg) Fluid Needs: 1 ml/kcal Nutrition Intervention Change Diet Order: Continue current Add Supplement/Snack (indicate name/kcal Ensure Clear 1 daily /protein ) Provides kCal: 240 Provides Protein (gm) 8 Goal #1 Meet at least 75% of calorie and protein needs via PO and ONS intakes Anticipated Discharge Needs: Renal diet Follow-Up By: 12/31/18 Additional Comments Follow for PO and ONS intakes
[2018-12-30] MEDS: carvediloL 12.5 MG TAB PO SCH ×2 (18:56→22:30)
[2018-12-30] MEDS: NIFEdipine XL 30 MG TAB PO SCH (18:57)
[2018-12-31] MEDS: oxyCODONE /ACETAMINOPHEN 5-325MG TAB PO SCH ×6 (03:11→21:25)
--- NOTE | 2018-12-31 09:48 | Progress Note ---
Assessment and Plan Currently stable cardiac status. Agree with present cardiac management. Cont volume optimization and electrolyte management per nephrology. Consider GI consultation per primary team. Nothing further to add from cardiac perspective at this time. Will follow on as needed basis. The patient has been seen in conjunction with Dr. Quintero who agrees with the assessment and plan of care. - Patient Problems (1) Abdominal pain Current Visit: Yes Status: Acute (2) Nausea & vomiting Current Visit: Yes Status: Acute (3) ESRD needing dialysis Current Visit: Yes Status: Chronic (4) Hyperkalemia Current Visit: Yes Status: Acute (5) Fluid overload Current Visit: Yes Status: Acute (6) NICM (nonischemic cardiomyopathy) Current Visit: Yes Status: Chronic (7) HTN (hypertension) Current Visit: No Status: Chronic Qualifiers: Hypertension type: unspecified Qualified Code(s): I10 - Essential (primary) hypertension (8) History of CVA (cerebrovascular accident) Current Visit: Yes Status: Chronic (9) Hyperkalemia, transcellular shifts Current Visit: Yes Status: Acute (10) Severe tricuspid regurgitation Current Visit: Yes Status: Chronic Subjective Date of service: 12/31/18 Principal diagnosis: hyperkalemia Interval history: pt resting in bed, still with c/o abdominal pain. in SR on tele. Objective Last Vital Signs Temp 98.3 F 12/31/18 05:28 Pulse 71 12/31/18 05:28 Resp 16 12/31/18 05:28 BP 88/51 12/31/18 05:28 Pulse Ox 93 12/31/18 05:28 - Physical Examination General: No Apparent Distress HEENT: Positive: PERRL, Normocephaly, Mucus Membranes Moist Neck: Positive: neck supple, trachea midline Cardiac: Positive: Reg Rate and Rhythm, S1/S2 Lungs: Positive: Decreased Breath Sounds Neuro: Positive: Grossly Intact Abdomen: Negative: Tender Skin: Negative: Rash Musculoskeletal: No Pain Extremities: Absent: edema - Labs and Meds Comprehensive Metabolic Panel 12/30/18 Range/Units 09:55 Sodium 143 (137-145) mmol/L Potassium 4.5 D (3.6-5.0) mmol/L Chloride 99.7 (98-107) mmol/L Carbon Dioxide 22 (22-30) mmol/L BUN 57 H (9-20) mg/dL Creatinine 13.5 H (0.8-1.5) mg/dL Glucose 100 (75-100) mg/dL Calcium 5.7 L* (8.4-10.2) mg/dL - Imaging and Cardiology EKG: report reviewed, image reviewed Echo: report reviewed (09/2018 showed EF 40%, grade 2 diastolic dysfunction, mod to severe TR, RVSP 72mmHg, severely dilated RA, mildly enlarged RV size, mildly reduced RV systolic function. ) - EKG Sinus rhythms and dysrhythmias: sinus rhythm
[2018-12-31] MEDS: PANTOPRAZOLE 40 MG TAB PO SCH ×2 (09:59→21:24)
[2018-12-31] MEDS: TAMSULOSIN 0.4 MG CAP PO SCH (09:59)
[2018-12-31] MEDS: CALCITRIOL 0.5 MCG CAP PO SCH (09:59)
[2018-12-31] MEDS: SEVELAMER CARBONATE 800 MG TAB PO SCH (09:59)
[2018-12-31] MEDS: ASPIRIN EC 81 MG TAB PO SCH (09:59)
--- NOTE | 2018-12-31 10:47 | Progress Note ---
Assessment and Plan This is a 63 year old man with ESRD who presents with dyspnea, fatigue, and hyperkalemia # ESRD on HD: dialyzed on admission for hyperkalemia to 6.8; now s/p HD on 12/29 and 12/30 - will continue // per outpatient schedule from now on; next HD due tomorrow - avoid nephrotoxins - access: CVC - renally dose medications - renal labs # Hyperkalemia: 2K bath, now resolved # Acidosis: likely in setting of missed HD, now improved # Anemia of CKD: will plan for ESAs if remains inpatient for hemoglobin goal # Secondary hyperparathyroidism: 3meq Ca bath for hypocalcemia; continue vitamin D analogs # CHF/HTN/volume overload: UF as tolerated. BP soft today; will need to monitor and change UF goals based on BP ahead of HD tomorrow Thank you for this consult; our team will continue to follow for renal related issues Subjective Date of service: 12/31/18 Principal diagnosis: hyperkalemia Interval history: No acute events noted overnight. Had HD yesterday without issues. Sleeping well this AM, arousable and denies any concerns this AM. No cramping, no lightheadedness with HD. No chest pain or shortness of breath. Objective - Exam Narrative Exam: General appearance: well-developed, well-nourished, appears stated age EENT: PERRL, mucous membranes moist Neck: Present: neck supple, trachea midline Respiratory: Clear to Auscultation, Other (on NC) Heart: regular, S1S2 Gastrointestinal: Present: normoactive bowel sounds. Absent: tenderness, distended Integumentary: no rash Neurologic: no focal deficit, no asterixis Psychiatric: mood/affect appropriate - Vital Signs Vital signs: Vital Signs - 12hr 12/30/18 12/30/18 12/31/18 23:29 23:48 05:28 Temperature 98.9 F 98.3 F Pulse Rate 74 71 Respiratory 18 17 16 Rate Blood Pressure 93/51 88/51 O2 Sat by Pulse 95 93 Oximetry - Lab 12/29/18 05:30 12/30/18 09:55 Most recent lab results Calcium 5.7 mg/dL (8.4-10.2) L* 12/30/18 09:55 Medications & Allergies - Medications Allergies/Adverse Reactions: Allergies No Known Allergies Allergy (Verified 09/04/18 19:38) Home Medications: Home Medications Medication Instructions Recorded Confirmed Last Taken Type Cefuroxime Axetil [Ceftin] 500 mg PO Q48H #3 ml 12/23/17 12/28/18 Unknown Rx Omeprazole 20 mg PO DAILY #30 tablet. 01/29/18 12/28/18 Unknown Rx Sevelamer Carbonate [Renvela] 800 mg PO DAILY #30 tablet 01/29/18 12/28/18 Unknown Rx Aspirin EC [Halfprin EC] 81 mg PO QDAY #30 tablet. 09/10/18 12/28/18 Unknown Rx AtorvaSTATin [Lipitor] 20 mg PO QHS #30 tablet 09/10/18 12/28/18 Unknown Rx Calcitriol [Rocaltrol] 0.5 mcg PO QDAY #30 capsule 09/10/18 12/28/18 Unknown Rx Lisinopril [Zestril TAB] 40 mg PO QDAY #30 tablet 09/10/18 12/28/18 Unknown Rx NIFEdipine [Nifedipine ER] 30 mg PO DAILY #30 tablet.er 09/10/18 12/28/18 Unknown Rx Pantoprazole [Protonix TAB] 40 mg PO BID #60 tablet 09/10/18 12/28/18 Unknown Rx Tamsulosin [Flomax] 1 cap PO DAILY #30 capsule 09/10/18 12/28/18 Unknown Rx carvediloL [Coreg] 12.5 mg PO BID #30 tablet 09/10/18 12/28/18 Unknown Rx oxyCODONE /ACETAMINOPHEN [Percocet 1 tab PO Q4HR #10 tab 09/10/18 12/28/18 Unknown Rx 5/325 mg] Active Medications: Generic Name Dose Route Start Last Admin Trade Name Freq PRN Reason Stop Dose Admin Acetaminophen 650 mg 12/28/18 17:12 Tylenol PO Q4H PRN Pain MILD(1-3)/Fever >100.5/STARK Aspirin 81 mg 12/29/18 10:00 12/31/18 09:59 Halfprin Ec PO 81 mg QDAY BRANDEE Administration Atorvastatin Calcium 20 mg 12/28/18 22:00 12/30/18 22:29 Lipitor PO 20 mg QHS BRANDEE Administration Calcitriol 0.5 mcg 12/29/18 10:00 12/31/18 09:59 Rocaltrol PO 0.5 mcg QDAY BRANDEE Administration Carvedilol 12.5 mg 12/28/18 22:00 12/30/18 22:30 Coreg PO 12.5 mg BID BRANDEE Administration Epoetin Matthew 2,000 unit 12/29/18 15:52 12/30/18 12:22 Procrit IV 2,000 unit MARGARET PRN Administration hemodialysis Sodium Chloride 100 mls @ 999 mls/hr 12/29/18 15:52 Nacl 0.9% IV MARGARET PRN Hypotension Lisinopril 40 mg 12/29/18 10:00 12/30/18 10:00 Zestril PO Not Given QDAY BRANDEE Nifedipine 30 mg 12/29/18 10:00 12/30/18 18:57 Procardia Xl PO 30 mg QDAY BRANDEE Administration Ondansetron HCl 4 mg 12/28/18 17:12 12/30/18 10:27 Zofran IV 4 mg Q8H PRN Administration Nausea And Vomiting Oxycodone/Acetaminophen 1 tab 12/28/18 18:00 12/31/18 10:01 Percocet 5/325 PO Not Given Q4HR [facility] Pantoprazole Sodium 40 mg 12/28/18 22:00 12/31/18 09:59 Protonix PO 40 mg BID BRNADEE Administration Sevelamer Carbonate 800 mg 12/29/18 10:00 12/31/18 09:59 Renvela PO 800 mg DAILY@0800 BRANDEE Administration Sodium Chloride 10 ml 12/28/18 22:00 12/31/18 09:59 Sodium Chloride Flush Syringe 10 Ml IV 10 ml BID BRANDEE Administration Sodium Chloride 10 ml 12/28/18 17:12 Sodium Chloride Flush Syringe 10 Ml IV PRN PRN LINE FLUSH Tamsulosin HCl 0.4 mg 12/29/18 10:00 12/31/18 09:59 Flomax PO 0.4 mg DAILY BRANDEE Administration
--- NOTE | 2018-12-31 12:50 | Progress Note ---
Assessment and Plan Assessment and plan: Abdominal pain. CT scan of abdomen and pelvis negative. GI consult. ? Melena. Patient reported dark black stools. Hemoccult stools. ESRD. Nephrology following. Hemodialysis per nephrology. Hyperkalemia. Continue hemodialysis. Acute systolic heart failure. Etiology secondary to volume overload. Exercise stress test completed December 2017 revealed an EF of 40% but no ischemia. Nonischemic dilated cardiomyopathy. Cardiology consultation. GERD. Continue PPI. Hypertension. Continue home antihypertensive medications. History Interval history: Patient complains of abdominal pain. Hospitalist Physical - Constitutional Vitals: Temp Pulse Resp BP Pulse Ox 97.8 F 68 16 103/62 97 12/31/18 11:31 12/31/18 11:31 12/31/18 11:31 12/31/18 11:31 12/31/18 11:31 General appearance: Present: no acute distress - EENT Eyes: Present: PERRL, EOM intact ENT: hearing intact, clear oral mucosa, dentition normal - Neck Neck: Present: supple, normal ROM - Respiratory Respiratory effort: normal Respiratory: bilateral: CTA - Cardiovascular Rhythm: regular Heart Sounds: Present: S1 & S2. Absent: gallop, rub - Extremities Extremities: no ischemia, No edema, Full ROM - Abdominal General gastrointestinal: soft, non-distended, normal bowel sounds Localized gastrointestinal: tender: epigastric periumbilical (mild) - Integumentary Integumentary: Present: clear, warm, dry - Neurologic Neurologic: CNII-XII intact, moves all extremities Results - Labs CBC & Chem 7: 12/29/18 05:30 12/30/18 09:55 Labs: Laboratory Last Values WBC 3.8 K/mm3 (4.5-11.0) L 12/29/18 05:30 RBC 3.03 M/mm3 (3.65-5.03) L 12/29/18 05:30 Hgb 9.2 gm/dl (11.8-15.2) L 12/29/18 05:30 Hct 28.4 % (35.5-45.6) L 12/29/18 05:30 MCV 94 fl (84-94) 12/29/18 05:30 MCH 30 pg (28-32) 12/29/18 05:30 MCHC 32 % (32-34) 12/29/18 05:30 RDW 17.1 % (13.2-15.2) H 12/29/18 05:30 Plt Count 169 K/mm3 (140-440) 12/29/18 05:30 Lymph % (Auto) 34.7 % (13.4-35.0) 12/29/18 05:30 [place] % (Auto) 11.7 % (0.0-7.3) H 12/29/18 05:30 Eos % (Auto) 3.1 % (0.0-4.3) 12/29/18 05:30 Baso % (Auto) 0.8 % (0.0-1.8) 12/29/18 05:30 Lymph # 1.3 K/mm3 (1.2-5.4) 12/29/18 05:30 [place] # 0.4 K/mm3 (0.0-0.8) 12/29/18 05:30 Eos # 0.1 K/mm3 (0.0-0.4) 12/29/18 05:30 Baso # 0.0 K/mm3 (0.0-0.1) 12/29/18 05:30 Seg Neutrophils % 49.7 % (40.0-70.0) 12/29/18 05:30 Seg Neutrophils # 1.9 K/mm3 (1.8-7.7) 12/29/18 05:30 PT 17.1 Sec. (12.2-14.9) H 12/28/18 12:43 INR 1.41 (0.87-1.13) H 12/28/18 12:43 APTT 31.8 Sec. (24.2-36.6) 12/28/18 12:43 Sodium 143 mmol/L (137-145) 12/30/18 09:55 Potassium 4.5 mmol/L (3.6-5.0) D 12/30/18 09:55 Chloride 99.7 mmol/L (98-107) 12/30/18 09:55 Carbon Dioxide 22 mmol/L (22-30) 12/30/18 09:55 Anion Gap 26 mmol/L 12/30/18 09:55 BUN 57 mg/dL (9-20) H 12/30/18 09:55 Creatinine 13.5 mg/dL (0.8-1.5) H 12/30/18 09:55 Estimated GFR 5 ml/min 12/30/18 09:55 BUN/Creatinine Ratio 4 % 12/30/18 09:55 Glucose 100 mg/dL (75-100) 12/30/18 09:55 POC Glucose 74 (70-105) 12/28/18 17:33 Calcium 5.7 mg/dL (8.4-10.2) L* 12/30/18 09:55 Total Bilirubin 1.20 mg/dL (0.1-1.2) 12/29/18 05:30 AST < 5 units/L (5-40) L 12/29/18 05:30 ALT 9 units/L (7-56) 12/29/18 05:30 Alkaline Phosphatase 174 units/L (35-129) H 12/29/18 05:30 Troponin T 0.063 ng/mL (0.00-0.029) H 12/28/18 17:23 Total Protein 6.1 g/dL (6.3-8.2) L 12/29/18 05:30 Albumin 3.4 g/dL (3.9-5) L 12/29/18 05:30 Albumin/Globulin Ratio 1.3 % 12/29/18 05:30 Triglycerides 156 mg/dL (2-149) H 12/28/18 12:43 Cholesterol 127 mg/dL (50-199) 12/28/18 12:43 LDL Cholesterol Direct 50 mg/dL (50-130) 12/28/18 12:43 HDL Cholesterol 57 mg/dL (40-59) 12/28/18 12:43 Cholesterol/HDL Ratio 2.22 % 12/28/18 12:43 Lipase 47 units/L (13-60) 12/28/18 12:43 Prostate Specific Ag 7.56 ng/mL (0.00-4.00) H 12/28/18 19:56 Hepatitis A IgM Ab Non-reactive (NonReactive) 12/29/18 10:25 Hep Bs Antigen Non-reactive (Negative) 12/29/18 10:25 Hep B Core IgM Ab Non-reactive (NonReactive) 12/29/18 10:25 Hepatitis C Antibody Non-reactive (NonReactive) 12/29/18 10:25 Active Medications - Current Medications Current Medications: Generic Name Dose Route Start Last Admin Trade Name Freq PRN Reason Stop Dose Admin Acetaminophen 650 mg 12/28/18 17:12 Tylenol PO Q4H PRN Pain MILD(1-3)/Fever >100.5/STARK Aspirin 81 mg 12/29/18 10:00 12/31/18 09:59 Halfprin Ec PO 81 mg QDAY BRANDEE Administration Atorvastatin Calcium 20 mg 12/28/18 22:00 12/30/18 22:29 Lipitor PO 20 mg QHS BRANDEE Administration Calcitriol 0.5 mcg 12/29/18 10:00 12/31/18 09:59 Rocaltrol PO 0.5 mcg QDAY BRANDEE Administration Carvedilol 12.5 mg 12/28/18 22:00 12/30/18 22:30 Coreg PO 12.5 mg BID BRANDEE Administration Epoetin Matthew 2,000 unit 12/29/18 15:52 12/30/18 12:22 Procrit IV 2,000 unit MARGARET PRN Administration hemodialysis Sodium Chloride 100 mls @ 999 mls/hr 12/29/18 15:52 Nacl 0.9% IV MARGARET PRN Hypotension Lisinopril 40 mg 12/29/18 10:00 12/30/18 10:00 Zestril PO Not Given QDAY BRANDEE Nifedipine 30 mg 12/29/18 10:00 12/30/18 18:57 Procardia Xl PO 30 mg QDAY [facility] Administration Ondansetron HCl 4 mg 12/28/18 17:12 12/30/18 10:27 Zofran IV 4 mg Q8H PRN Administration Nausea And Vomiting Oxycodone/Acetaminophen 1 tab 12/28/18 18:00 12/31/18 10:01 Percocet 5/325 PO Not Given Q4HR [facility] Pantoprazole Sodium 40 mg 12/28/18 22:00 12/31/18 09:59 Protonix PO 40 mg BID BRANDEE Administration Sevelamer Carbonate 800 mg 12/29/18 10:00 12/31/18 09:59 Renvela PO 800 mg DAILY@0800 [facility] Administration Sodium Chloride 10 ml 12/28/18 22:00 12/31/18 09:59 Sodium Chloride Flush Syringe 10 Ml IV 10 ml BID BRANDEE Administration Sodium Chloride 10 ml 12/28/18 17:12 Sodium Chloride Flush Syringe 10 Ml IV PRN PRN LINE FLUSH Tamsulosin HCl 0.4 mg 12/29/18 10:00 12/31/18 09:59 Flomax PO 0.4 mg DAILY BRANDEE Administration Nutrition/Malnutrition Assess - Dietary Evaluation Nutrition/Malnutrition Findings: Nutrition Notes Start: 12/29/18 15:44 Freq: Status: Active Protocol: Document 12/31/18 10:40 DORI (Rec: 12/31/18 10:41 DORI [id number]) Co-Sign 12/31/18 10:40 LP Nutrition Notes Initial or Follow up Reassessment Current Diagnosis Hypertension,Heart Failure Other Pertinent Diagnosis ESRD on HD (T/Th/Sat), GERD, Abdominal discomfort Current Diet Renal Labs/Tests Reviewed Pertinent Medications Lipitor Height 5 ft 7 in Weight 59.6 kg [place] Body Weight (kg) 67.27 BMI 20.5 Weight change and time frame Wt change noted. Subjective/Other Information Pt was angry and didn't want to talk. Pt ate 75% of breakfast Percent of energy/protein needs met: 91%/78% Burn Absent Trauma Absent Minimum of two criteria No #1 Nutrition Diagnosis Inadequate oral intake Diagnosis Progress(for reassessment Continues documentation) Is patient on ventilator? No Is Patient Ambulatory and/or Out of Bed Yes REE-([facility]-ambulatory/OOB) [ 1761.019 [id number]] Calculation Used for Recommendations [facility] Additional Notes Protein Needs: 72g (>1.2g/kg) Fluid Needs: 1 ml/kcal Nutrition Intervention Change Diet Order: Continue current Add Supplement/Snack (indicate name/kcal Ensure Clear 1 daily /protein ) Provides kCal: 240 Provides Protein (gm) 8 Goal #1 Meet at least 75% of calorie and protein needs via PO and ONS intakes Anticipated Discharge Needs: Renal diet Follow-Up By: 01/04/19 Additional Comments Follow for PO and ONS intakes
[2018-12-31] MEDS: NIFEdipine XL 30 MG TAB PO SCH (14:57)
[2018-12-31] MEDS: carvediloL 12.5 MG TAB PO SCH ×3 (14:58→21:29)
[2018-12-31] MEDS: LISINOPRIL 40 MG TAB PO SCH (14:58)
[2018-12-31] MEDS: ONDANSETRON 4 MG/2 ML INJ IV PRN (15:02)
--- NOTE | 2018-12-31 17:47 | Gastroenterology Consultation ---
History of Present Illness - Reason for Consult Consult date: 12/31/18 melena Requesting physician: MANAV TINOCO - History of Present Illness This is a pleasant 63 year old man with ESRD on HD, HTN, CHF, GERD, and chronic abdominal pain admitted on 12/28/2018 for sob, abdominal pain and missing HD. Found to have volume overload. GI consulted today for question of melena. Patient is a poor historian. He reports having intermittent dark stools and blood in the stool for "long time". He also has had chronic upper abdominal pain. No nausea/vomiting. Reports having been evaluated at [facility] a few months ago for similar GI symptoms but not sure what was done for evaluation. Of note, he was admitted in 08/2018 and GI was consulted for abdominal pain, nausea/vomiting and diarrhea. EGD was performed and it showed duodenitis in the bulb and moderate gastritis and distal esophagus suspicious for Santa's esophagus. He had further work up with HIDA, which was abnormal and surgery was consulted and planned for outpatient cholecystectomy. He denies any h/o surgery. Unclear if he went for cholecystectomy. PAST MEDICAL HISTORY:hypertension, CHF, ESRD, GERD PAST SURGICAL HISTORY: AVF SOCIAL HISTORY: Denies alcohol, drugs, tobacco FAMILY HISTORY: Hypertension Home meds reviewed, updated, and reconciled Past History Past Medical History: other (see hpi) Past Surgical History: Other (Dialysis access) Social history: . denies: smoking, alcohol abuse, prescription drug abuse Family history: hypertension Medications and Allergies Allergies Allergy/AdvReac Type Severity Reaction Status Date / Time No Known Allergies Allergy Verified 09/04/18 19:38 Home Medications Medication Instructions Recorded Confirmed Last Taken Type Cefuroxime Axetil [Ceftin] 500 mg PO Q48H #3 ml 12/23/17 12/28/18 Unknown Rx Omeprazole 20 mg PO DAILY #30 tablet. 01/29/18 12/28/18 Unknown Rx Sevelamer Carbonate [Renvela] 800 mg PO DAILY #30 tablet 01/29/18 12/28/18 Unknown Rx Aspirin EC [Halfprin EC] 81 mg PO QDAY #30 tablet. 09/10/18 12/28/18 Unknown Rx AtorvaSTATin [Lipitor] 20 mg PO QHS #30 tablet 09/10/18 12/28/18 Unknown Rx Calcitriol [Rocaltrol] 0.5 mcg PO QDAY #30 capsule 09/10/18 12/28/18 Unknown Rx Lisinopril [Zestril TAB] 40 mg PO QDAY #30 tablet 09/10/18 12/28/18 Unknown Rx NIFEdipine [Nifedipine ER] 30 mg PO DAILY #30 tablet.er 09/10/18 12/28/18 Unknown Rx Pantoprazole [Protonix TAB] 40 mg PO BID #60 tablet 09/10/18 12/28/18 Unknown Rx Tamsulosin [Flomax] 1 cap PO DAILY #30 capsule 09/10/18 12/28/18 Unknown Rx carvediloL [Coreg] 12.5 mg PO BID #30 tablet 09/10/18 12/28/18 Unknown Rx oxyCODONE /ACETAMINOPHEN [Percocet 1 tab PO Q4HR #10 tab 09/10/18 12/28/18 Unknown Rx 5/325 mg] Active Meds: Active Medications Acetaminophen (Tylenol) 650 mg PO Q4H PRN PRN Reason: Pain MILD(1-3)/Fever >100.5/STARK Aspirin (Halfprin Ec) 81 mg PO QDAY [facility] Last Admin: 12/31/18 09:59 Dose: 81 mg Documented by: Atorvastatin Calcium (Lipitor) 20 mg PO QHS [facility] Last Admin: 12/30/18 22:29 Dose: 20 mg Documented by: Calcitriol (Rocaltrol) 0.5 mcg PO QDAY [facility] Last Admin: 12/31/18 09:59 Dose: 0.5 mcg Documented by: Carvedilol (Coreg) 12.5 mg PO BID [facility] Last Admin: 12/31/18 14:58 Dose: Not Given Documented by: Epoetin Matthew (Procrit) 2,000 unit IV MARGARET PRN PRN Reason: hemodialysis Last Admin: 12/30/18 12:22 Dose: 2,000 unit Documented by: Sodium Chloride (Nacl 0.9%) 100 mls @ 999 mls/hr IV MARGARET PRN PRN Reason: Hypotension Lisinopril (Zestril) 40 mg PO QDAY [facility] Last Admin: 12/31/18 14:58 Dose: Not Given Documented by: Nifedipine (Procardia Xl) 30 mg PO QDAY [facility] Last Admin: 12/31/18 14:57 Dose: 30 mg Documented by: Ondansetron HCl (Zofran) 4 mg IV Q8H PRN PRN Reason: Nausea And Vomiting Last Admin: 12/31/18 15:02 Dose: 4 mg Documented by: Oxycodone/Acetaminophen (Percocet 5/325) 1 tab PO Q4HR [facility] Last Admin: 12/31/18 15:02 Dose: 1 tab Documented by: Pantoprazole Sodium (Protonix) 40 mg PO BID [facility] Last Admin: 12/31/18 09:59 Dose: 40 mg Documented by: Sevelamer Carbonate (Renvela) 800 mg PO DAILY@0800 [facility] Last Admin: 12/31/18 09:59 Dose: 800 mg Documented by: Sodium Chloride (Sodium Chloride Flush Syringe 10 Ml) 10 ml IV BID [facility] Last Admin: 12/31/18 09:59 Dose: 10 ml Documented by: Sodium Chloride (Sodium Chloride Flush Syringe 10 Ml) 10 ml IV PRN PRN PRN Reason: LINE FLUSH Tamsulosin HCl (Flomax) 0.4 mg PO DAILY [facility] Last Admin: 12/31/18 09:59 Dose: 0.4 mg Documented by: Review of Systems - Review of Systems Constitutional: no weight loss, no weight gain Gastrointestinal: abdominal pain, nausea, diarrhea, melena, no vomiting Exam - Constitutional Vital Signs: Temp Pulse Resp BP Pulse Ox 97.8 F 68 16 112/61 97 12/31/18 11:31 12/31/18 11:31 12/31/18 11:31 12/31/18 14:58 12/31/18 11:31 General appearance: no acute distress - EENT Eyes: EOM intact - Neck Neck: supple - Respiratory Respiratory effort: normal - Cardiovascular Rhythm: regular Heart Sounds: Present: S1 & S2 - Gastrointestinal General gastrointestinal: Present: soft, tender, non-distended, normal bowel sounds - Integumentary Integumentary: Present: clear, warm - Neurologic Neurological: alert and oriented x3 - Labs CBC & Chem 7: 12/29/18 05:30 12/30/18 09:55 - Imaging CT Scan: report reviewed Assessment and Plan This is a pleasant 63 year old man with ESRD on HD, HTN, CHF, GERD, and chronic abdominal pain admitted on 12/28/2018 for sob, abdominal pain and missing HD. Found to have volume overload. GI consulted today for question of melena. # Chronic abdominal pain # Question of melena - poor historian but reports having intermittent dark stools for long time. - last admission in 08/2018 with GI work up for similar symptoms showing duodenitis, gastritis, and possible Santa's esophagus. Path with benign du odenal bx, benign antrum bx, and chronic inflammation and intestinal metaplasia at distal esophagus. - H/H stable on 12/28-12/29 but no cbc since 12/29. - admission CT a/p without contrast unremarkable. Rec - monitor H/H. will check cbc today. - no plans for EGD at this time. - continue with protonix oral bid. - add sucralfate for abdominal pain. - will follow.
[2018-12-31] MEDS: SUCRALFATE 1 GM/10 ML ORAL LIQD PO SCH ×2 (21:24→21:29)
[2018-12-31 21:32] LABS: Hematocrit 25.5 % (35.5-45.6); Hemoglobin 8.3 gm/dl (11.8-15.2); Mean Corpuscular HGB Conc 33 % (32-34); Mean Corpuscular Volume 94 fl (84-94); Platelet Count 162 K/mm3 (140-440); Red Blood Count 2.72 M/mm3 (3.65-5.03); Red Cell Distribution Width 16.9 % (13.2-15.2)
[2019-01-01] MEDS: oxyCODONE /ACETAMINOPHEN 5-325MG TAB PO SCH ×4 (02:01→13:41)
[2019-01-01] MEDS: ONDANSETRON 4 MG/2 ML INJ IV PRN (08:44)
[2019-01-01] MEDS: SEVELAMER CARBONATE 800 MG TAB PO SCH (08:44)
[2019-01-01] MEDS: SUCRALFATE 1 GM/10 ML ORAL LIQD PO SCH ×2 (08:45→13:34)
--- NOTE | 2019-01-01 10:13 | Discharge Summary ---
Providers - Providers Date of Admission: 12/30/18 09:10 Date of discharge: 01/01/19 Attending physician: MANAV TINOCO 12/28/18 17:19 Consult to Physician [CONS] Routine Comment: Consulting Provider: KETURAH JAMES Physician Instructions: Reason For Exam: esrd 12/29/18 13:14 Consult to Physician [CONS] Routine Comment: Consulting Provider: VINCENZO MARINELLI Physician Instructions: Reason For Exam: sys HF 12/30/18 09:27 Physical Therapy Evaluation and Treat [CONS] Routine Comment: Reason For Exam: weakness 12/31/18 10:08 Consult to Physician [CONS] Routine Comment: Consulting Provider: ANNA MCLAIN Physician Instructions: Reason For Exam: melena [facility] Reason for admission: abd pain Condition: Stable Hospital course: The patient is a 63 y/o male with a past medical history of HTN, ESRD on HD, HF, NICMP, HFrEF, TIA, CVA, severe TR who presented with c/o abdominal pain, nausea and vomiting for the past several days. His symptoms caused him to miss dialysis for approx 3-4 sessions. The patient was admitted with diagnosis of hyperkalemia, metabolic acidosis and volume overload secondary to missed hemodialysis. Nephrology saw the patient in consultation and arrange for urgent hemodialysis with subsequent hemodialysis the following day. The patient was then resumed on his regular outpatient schedule Thursday. Volume status stabilized. Also, Pt was seen by cardiology who recommended volum e optimization and electrolyte management per nephrology. GI saw the patient for abdominal pain and questionable melena. Of note, he was admitted in 08/2018 and GI was consulted for abdominal pain, nausea/vomiting and diarrhea. EGD was performed and it showed duodenitis in the bulb and moderate gastritis and distal esophagus suspicious for Santa's esophagus. He had further work up with HIDA, which was abnormal and surgery was consulted and planned for outpatient cholecystectomy. Patient's H&H was found to be stable throughout hospitalization. Admission CT scan of abdomen and pelvis without contrast was unremarkable. GI felt patient could discharge with Protonix twice a day and sucralfate. Patient should have further outpatient follow-up with surgery as noted above and GI. Patient was counseled on importance of medical compliance with hemodialysis and outpatient follow-up. Dedicated discharge time 32 minutes. Disposition: DC- TO HOME OR SELFCARE Time spent for discharge: 32 - Discharge Diagnoses (1) Abdominal pain Status: Acute (2) Acidosis Status: Acute (3) ESRD (end stage renal disease) Status: Acute (4) Fluid overload Status: Acute (5) GERD (gastroesophageal reflux disease) Status: Acute Qualifiers: Esophagitis presence: without esophagitis Qualified Code(s): K21.9 - Gastro-esophageal reflux disease without esophagitis (6) HTN (hypertension) Status: Acute Qualifiers: Hypertension type: essential hypertension Qualified Code(s): I10 - Essential (primary) hypertension (7) Generalized abdominal pain Status: Acute (8) ESRD on dialysis Status: Chronic (9) HTN (hypertension) Status: Chronic Qualifiers: Hypertension type: unspecified Qualified Code(s): I10 - Essential (primary) hypertension Core Measure Documentation - Palliative Care Palliative Care/ Comfort Measures: Not Applicable - Core Measures Any of the following diagnoses?: none Exam - Constitutional Vitals: Temp Pulse Resp BP Pulse Ox 98.4 F 68 18 109/64 93 01/01/19 05:33 01/01/19 05:33 01/01/19 06:48 01/01/19 05:33 01/01/19 05:33 General appearance: Present: no acute distress, well-nourished - EENT Eyes: Present: PERRL ENT: hearing intact, clear oral mucosa - Neck Neck: Present: supple, normal ROM - Respiratory Respiratory effort: normal Respiratory: bilateral: CTA - Cardiovascular Heart Sounds: Present: S1 & S2. Absent: rub, click - Extremities Extremities: pulses symmetrical, No edema Peripheral Pulses: within normal limits - Abdominal General gastrointestinal: Present: soft, non-tender, non-distended, normal bowel sounds Male genitourinary: Present: normal - Integumentary Integumentary: Present: clear, warm, dry - Musculoskeletal Musculoskeletal: gait normal, strength equal bilaterally - Psychiatric Psychiatric: appropriate mood/affect, intact judgment & insight - Neurologic Neurologic: CNII-XII intact, moves all extremities Plan Activity: advance as tolerated Weight Bearing Status: Weight Bear as Tolerated Diet: renal Follow up with: FEMI ARTHUR MD [Primary Care Provider] - 7 Days JIMBO MARRERO MD [Staff Physician] - 7 Days AVA DAVIS DO [Staff Physician] - 7 Days VARUN CLEMENTE MD [Staff Physician] - 7 Days VINCENZO MARINELLI MD [Staff Physician] - 7 Days Forms: Accompanied Note Prescriptions: Sucralfate [Carafate] 1 gm PO ACHS 30 Days oral.liqd carvediloL [Coreg] 12.5 mg PO BID #30 tablet Tamsulosin [Flomax] 1 cap PO DAILY #30 capsule Aspirin EC [Halfprin EC] 81 mg PO QDAY #30 tablet. AtorvaSTATin [Lipitor] 20 mg PO QHS #30 tablet oxyCODONE /ACETAMINOPHEN [Percocet 5/325 mg] 1 tab PO Q4HR #10 tab NIFEdipine XL [Procardia Xl] 30 mg PO QDAY #30 tablet Pantoprazole [Protonix TAB] 40 mg PO BID #60 tablet Calcitriol [Rocaltrol] 0.5 mcg PO QDAY #30 capsule Lisinopril [Zestril TAB] 40 mg PO QDAY #30 tablet
[2019-01-01] MEDS: PANTOPRAZOLE 40 MG TAB PO SCH (10:17)
[2019-01-01] MEDS: ASPIRIN EC 81 MG TAB PO SCH ×2 (10:17→13:40)
[2019-01-01] MEDS: NIFEdipine XL 30 MG TAB PO SCH (10:17)
[2019-01-01] MEDS: CALCITRIOL 0.5 MCG CAP PO SCH (10:17)
[2019-01-01] MEDS: carvediloL 12.5 MG TAB PO SCH (10:17)
[2019-01-01] MEDS: TAMSULOSIN 0.4 MG CAP PO SCH (10:17)
[2019-01-01] MEDS: LISINOPRIL 40 MG TAB PO SCH ×2 (10:18→13:43)
[2019-01-01] MEDS ORDERED: SODIUM CHLORIDE*PRIMING MACHINE ONLY FOR DIALYSIS MC ONE (11:48)
[2019-01-01] MEDS ORDERED: EPOETIN ALFA 10,000 UNIT/1 ML INJ ONE (11:50)
--- NOTE | 2019-01-01 12:21 | Progress Note ---
Assessment and Plan Impression * End-stage renal disease on maintenance hemodialysis * Hyperkalemia * Acidosis * Anemia secondary to ESRD * Hyperparathyroidism * Abdominal pain Recommendations * Patient is currently undergoing hemodialysis. Tolerating well. * Continue dialysis on TTS schedule as outpatient. He undergoes dialysis at a clinic in the [place] side [facility] * Hyperkalemia has been corrected * Procrit with dialysis * Binders with meals * Adjust diet and meds for ESRD state * Management of abdominal pain as per GI services and primary team Subjective Date of service: 01/01/19 Principal diagnosis: hyperkalemia Interval history: Patient is currently undergoing hemodialysis. Still continues to complain of abdominal discomfort. Denies any nausea or vomiting. Denies any shortness of breath. Objective - Vital Signs Vital signs: Vital Signs - 12hr 01/01/19 01/01/19 01/01/19 02:01 05:33 06:48 Temperature 98.4 F Pulse Rate 68 Respiratory 18 16 18 Rate Blood Pressure 109/64 O2 Sat by Pulse 93 Oximetry - General Appearance General appearance: well-developed, well-nourished, appears stated age EENT: PERRL, mucous membranes moist Neck: no JVD, no thyromegaly, no carotid bruit, supple Respiratory: Present: Clear to Ascultation Cardiology: regular, normal heart rate Gastrointestinal: normal, normoactive bowel sounds Integumentary: no rash, other (AV fistula right upper arm. Cannulated for dialysis. No edema) - Lab 12/31/18 20:50 12/30/18 09:55 Most recent lab results Calcium 5.7 mg/dL (8.4-10.2) L* 12/30/18 09:55 Medications & Allergies - Medications Allergies/Adverse Reactions: Allergies No Known Allergies Allergy (Verified 09/04/18 19:38) Home Medications: Home Medications Medication Instructions Recorded Confirmed Last Taken Type Cefuroxime Axetil [Ceftin] 500 mg PO Q48H #3 ml 12/23/17 12/28/18 Unknown Rx Omeprazole 20 mg PO DAILY #30 tablet.dr 01/29/18 12/28/18 Unknown Rx Sevelamer Carbonate [Renvela] 800 mg PO DAILY #30 tablet 01/29/18 12/28/18 Unknown Rx NIFEdipine [Nifedipine ER] 30 mg PO DAILY #30 tablet.er 09/10/18 12/28/18 Unknown Rx Aspirin EC [Halfprin EC] 81 mg PO QDAY #30 tablet. 01/01/19 Unknown Rx AtorvaSTATin [Lipitor] 20 mg PO QHS #30 tablet 01/01/19 Unknown Rx Calcitriol [Rocaltrol] 0.5 mcg PO QDAY #30 capsule 01/01/19 Unknown Rx EPOETIN MATTHEW 2,000 unit [Procrit] 2,000 unit IV MARGARET PRN vial 01/01/19 Unknown Rx Lisinopril [Zestril TAB] 40 mg PO QDAY #30 tablet 01/01/19 Unknown Rx NIFEdipine XL [Procardia Xl] 30 mg PO QDAY #30 tablet 01/01/19 Unknown Rx Pantoprazole [Protonix TAB] 40 mg PO BID #60 tablet 01/01/19 Unknown Rx Sucralfate [Carafate] 1 gm PO ACHS 30 Days oral.liqd 01/01/19 Unknown Rx Tamsulosin [Flomax] 1 cap PO DAILY #30 capsule 01/01/19 Unknown Rx carvediloL [Coreg] 12.5 mg PO BID #30 tablet 01/01/19 Unknown Rx oxyCODONE /ACETAMINOPHEN [Percocet 1 tab PO Q4HR #10 tab 01/01/19 Unknown Rx 5/325 mg] Active Medications: Generic Name Dose Route Start Last Admin Trade Name Freq PRN Reason Stop Dose Admin Acetaminophen 650 mg 12/28/18 17:12 Tylenol PO Q4H PRN Pain MILD(1-3)/Fever >100.5/STARK Aspirin 81 mg 12/29/18 10:00 01/01/19 10:17 Halfprin Ec PO Not Given QDAY [facility] Atorvastatin Calcium 20 mg 12/28/18 22:00 12/31/18 21:24 Lipitor PO 20 mg QHS BRANDEE Administration Calcitriol 0.5 mcg 12/29/18 10:00 01/01/19 10:17 Rocaltrol PO Not Given QDAY [facility] Carvedilol 12.5 mg 12/28/18 22:00 01/01/19 10:17 Coreg PO Not Given BID [facility] Epoetin Matthew 2,000 unit 12/29/18 15:52 12/30/18 12:22 Procrit IV 2,000 unit MARGARET PRN Administration hemodialysis Sodium Chloride 100 mls @ 999 mls/hr 12/29/18 15:52 Nacl 0.9% IV MARGARET PRN Hypotension Lisinopril 40 mg 12/29/18 10:00 01/01/19 10:18 Zestril PO Not Given QDAY [facility] Nifedipine 30 mg 12/29/18 10:00 01/01/19 10:17 Procardia Xl PO Not Given QDAY [facility] Ondansetron HCl 4 mg 12/28/18 17:12 01/01/19 08:44 Zofran IV 4 mg Q8H PRN Administration Nausea And Vomiting Oxycodone/Acetaminophen 1 tab 12/28/18 18:00 01/01/19 10:16 Percocet 5/325 PO Not Given Q4HR [facility] Pantoprazole Sodium 40 mg 12/28/18 22:00 01/01/19 10:17 Protonix PO Not Given BID [facility] Sevelamer Carbonate 800 mg 12/29/18 10:00 01/01/19 08:44 Renvela PO 800 mg DAILY@0800 [facility] Administration Sodium Chloride 10 ml 12/28/18 22:00 01/01/19 10:18 Sodium Chloride Flush Syringe 10 Ml IV Not Given BID [facility] Sodium Chloride 10 ml 12/28/18 17:12 Sodium Chloride Flush Syringe 10 Ml IV PRN PRN LINE FLUSH Sucralfate 1 gm 12/31/18 22:00 01/01/19 08:45 Carafate PO Not Given ACHS [facility] Tamsulosin HCl 0.4 mg 12/29/18 10:00 01/01/19 10:17 Flomax PO Not Given DAILY [facility]
[2019-01-01 13:36] VITALS: BP 157/89
== END 2019-01-01 17:02 | disposition home or self-care (01) | DRG 291 ==
LOC: ED 12:20 → 3A 17:12 → OBSVTOIN 12-30 09:10
PROVIDERS: ADMIT Internal Medicine; ATTEND Hospitalist
PROC: 5A1D70Z Performance of Urinary Filtration, Intermittent, Less than 6 Hours Per Day (ICD-10-PCS; principal; 2018-12-29)
PROC: 5A1D70Z Performance of Urinary Filtration, Intermittent, Less than 6 Hours Per Day (ICD-10-PCS; 2018-12-30)
PROC: 5A1D70Z Performance of Urinary Filtration, Intermittent, Less than 6 Hours Per Day (ICD-10-PCS; 2019-01-01)
DX: I13.2 Hypertensive heart and chronic kidney disease with heart failure and with stage 5 chronic kidney disease, or end stage renal disease (principal); N18.6 End stage renal disease; I50.41 Acute combined systolic (congestive) and diastolic (congestive) heart failure; E87.2 Acidosis; N25.81 Secondary hyperparathyroidism of renal origin; K92.2 Gastrointestinal hemorrhage, unspecified; E87.5 Hyperkalemia; D63.1 Anemia in chronic kidney disease; I42.0 Dilated cardiomyopathy; E83.51 Hypocalcemia; N40.0 Benign prostatic hyperplasia without lower urinary tract symptoms; K21.9 Gastro-esophageal reflux disease without esophagitis; Z99.2 Dependence on renal dialysis; Z79.899 Other long term (current) drug therapy; Z79.82 Long term (current) use of aspirin; Z86.73 Personal history of transient ischemic attack (TIA), and cerebral infarction without residual deficits; Z82.49 Family history of ischemic heart disease and other diseases of the circulatory system
CPT/HCPCS: 36415; 71046; 74176; 80048; 80053; 80061; 80074; 82270; 82271; 82962; 83690; 84132; 84153; 84484; 85025; 85027; 85610; 85730; 87116; 93005; 93010; G0378; A9270-GY; C9113; J0610; J0885; J1815; J2270; J2405; J7030

== ENCOUNTER 2019-01-13 15:43 | Inpatient (IN) | payer OTHER, MEDICARE ==
--- NOTE | 2019-01-13 16:09 | Event Note ---
ED Screening Note Date of service: 01/13/19 Time: 16:02 ED Screening Note: Patient reports nausea and vomitting x 1 week and vomitting blood x 3 days. Reports sob and pain to epigastric area. H/O ulcer several years at [place]. Taking meds for acid reflux. H/O CP. reports that he had heart test at this hospital. Negative smoking or alcohol use. H/O HTN. Did not take meds No today Chills with coughing. Alert, looks sich. BP elevated Lungs: CTAB ABD- actively vomitting and noted coffee grounds emesis. Flat, Mild ttp epigastric area, Audible BS This initial assessment/diagnostic orders/clinical plan/treatment(s) is/are subject to change based on patients health status, clinical progression and re- assessment by fellow clinical providers in the ED. Further treatment and workup at subsequent clinical providers discretion. Patient/guardian urged not to elope from the ED as their condition may be serious if not clinically assessed and managed. Initial orders include: labs,xray, ekg
[2019-01-13] MEDS ORDERED: ONDANSETRON 4 MG/2 ML INJ ONE (17:06)
[2019-01-13 17:36] LABS: Hemoglobin 10.5 gm/dl (11.8-15.2); Mean Corpuscular HGB Conc 32 % (32-34); Mean Corpuscular Volume 94 fl (84-94); Platelet Count 143 K/mm3 (140-440); Red Blood Count 3.52 M/mm3 (3.65-5.03); Red Cell Distribution Width 16.1 % (13.2-15.2)
[2019-01-13 17:37] LABS: Basophils % (Auto) 0.4 % (0.0-1.8); Eosinophils % (Auto) 0.2 % (0.0-4.3); Lymphocytes # (Auto) 1.4 K/mm3 (1.2-5.4); Lymphocytes % (Auto) 31.7 % (13.4-35.0); Monocytes # (Auto) 0.5 K/mm3 (0.0-0.8); Monocytes % (Auto) 11.6 % (0.0-7.3)
[2019-01-13 18:05] LABS: Chol/HDL Ratio 1.41 %
[2019-01-13 18:06] LABS: Albumin 4.3 g/dL (3.9-5); Calcium 7.6 mg/dL (8.4-10.2)
--- NOTE | 2019-01-13 18:41 | XRay Report ---
CHEST 1 VIEW INDICATION: cough, chills. COMPARISON: 12/28/2018 FINDINGS: Support devices: None. Heart: Stable cardiomegaly. Lungs/Pleura: Left-sided pleural effusion has decreased in size and is now trace (previously small). Additional findings: None. IMPRESSION: 1. Improved exam. Signer Name: Slava Barrera MD Signed: 01/13/2019 6:36 PM Workstation Name: [id number]
[2019-01-13] MEDS ORDERED: MORPHINE 4 MG/1 ML INJ IV ONE (18:47)
[2019-01-13] MEDS ORDERED: ONDANSETRON 4 MG/2 ML INJ IV ONE ×2 (18:47→18:48)
--- NOTE | 2019-01-13 18:54 | Emergency Department Report ---
ED Abdominal Pain HPI - General Chief Complaint: Abdominal Pain Stated Complaint: VOMITING BLOOD/ABD PAIN Time Seen by Provider: 01/13/19 16:01 Source: patient Mode of arrival: Wheelchair Limitations: No Limitations - History of Present Illness Initial Comments: Patient is 64 years old male with history of end stage renal disease on hemodialysis. Patient presented to the ER complaining of diffuse abdominal pain associated with his nausea, vomiting and diarrhea. Patient denied any fever or chills. Patient stated that his pain is similar to his previous episode. Patient denied any chest pain or shortness of breath. MD Complaint: abdominal pain -: This morning Location: diffuse Radiation: none Migration to: no migration Severity scale (0 -10): 7 Consistency: constant - Related Data Previous Rx's Medication Instructions Recorded Last Taken Type Cefuroxime Axetil [Ceftin] 500 mg PO Q48H #3 ml 12/23/17 Unknown Rx Omeprazole 20 mg PO DAILY #30 tablet. 01/29/18 Unknown Rx Sevelamer Carbonate [Renvela] 800 mg PO DAILY #30 tablet 01/29/18 Unknown Rx NIFEdipine [Nifedipine ER] 30 mg PO DAILY #30 tablet.er 09/10/18 Unknown Rx Aspirin EC [Halfprin EC] 81 mg PO QDAY #30 tablet. 01/01/19 Unknown Rx AtorvaSTATin [Lipitor] 20 mg PO QHS #30 tablet 01/01/19 Unknown Rx Calcitriol [Rocaltrol] 0.5 mcg PO QDAY #30 capsule 01/01/19 Unknown Rx EPOETIN TRICIA 2,000 unit [Procrit] 2,000 unit IV MARGARET PRN vial 01/01/19 Unknown Rx Lisinopril [Zestril TAB] 40 mg PO QDAY #30 tablet 01/01/19 Unknown Rx NIFEdipine XL [Procardia Xl] 30 mg PO QDAY #30 tablet 01/01/19 Unknown Rx Pantoprazole [Protonix TAB] 40 mg PO BID #60 tablet 01/01/19 Unknown Rx Sucralfate [Carafate] 1 gm PO ACHS 30 Days oral.liqd 01/01/19 Unknown Rx Tamsulosin [Flomax] 1 cap PO DAILY #30 capsule 01/01/19 Unknown Rx carvediloL [Coreg] 12.5 mg PO BID #30 tablet 01/01/19 Unknown Rx oxyCODONE /ACETAMINOPHEN [Percocet 1 tab PO Q4HR #10 tab 01/01/19 Unknown Rx 5/325 mg] Allergies Allergy/AdvReac Type Severity Reaction Status Date / Time No Known Allergies Allergy Verified 09/04/18 19:38 ED Review of Systems ROS: Stated complaint: VOMITING BLOOD/ABD PAIN Other details as noted in HPI Comment: All other systems reviewed and negative Constitutional: denies: chills, fever Respiratory: denies: cough, shortness of breath, SOB with exertion, SOB at rest Cardiovascular: denies: chest pain, palpitations Gastrointestinal: denies: abdominal pain, nausea, vomiting, diarrhea, constipation, hematemesis, melena, hematochezia Musculoskeletal: denies: back pain Neurological: denies: headache, weakness, numbness, paresthesias, confusion, abnormal gait ED Past Medical Hx - Past Medical History Previous Medical History?: Yes Hx Hypertension: Yes Hx Heart Attack/AMI: No Hx Congestive Heart Failure: Yes Hx Diabetes: No Hx Liver Disease: No Hx Renal Disease: Yes (THURSDAY, THURSDAY AND THURSDAY) Hx Sickle Cell Disease: No Hx Seizures: No Hx Asthma: No Hx COPD: No Hx HIV: No - Surgical History Past Surgical History?: Yes Hx Pacemaker: No Hx Internal Defibrillator: No Additional Surgical History: shunt for dialysis - Social History Smoking Status: Never Smoker Substance Use Type: None - Medications Home Medications: Home Medications Medication Instructions Recorded Confirmed Last Taken Type Cefuroxime Axetil [Ceftin] 500 mg PO Q48H #3 ml 12/23/17 12/28/18 Unknown Rx Omeprazole 20 mg PO DAILY #30 tablet. 01/29/18 12/28/18 Unknown Rx Sevelamer Carbonate [Renvela] 800 mg PO DAILY #30 tablet 01/29/18 12/28/18 Unknown Rx NIFEdipine [Nifedipine ER] 30 mg PO DAILY #30 tablet.er 09/10/18 12/28/18 Unknown Rx Aspirin EC [Halfprin EC] 81 mg PO QDAY #30 tablet. 01/01/19 Unknown Rx AtorvaSTATin [Lipitor] 20 mg PO QHS #30 tablet 01/01/19 Unknown Rx Calcitriol [Rocaltrol] 0.5 mcg PO QDAY #30 capsule 01/01/19 Unknown Rx EPOETIN TRICIA 2,000 unit [Procrit] 2,000 unit IV MARGARET PRN vial 01/01/19 Unknown Rx Lisinopril [Zestril TAB] 40 mg PO QDAY #30 tablet 01/01/19 Unknown Rx NIFEdipine XL [Procardia Xl] 30 mg PO QDAY #30 tablet 01/01/19 Unknown Rx Pantoprazole [Protonix TAB] 40 mg PO BID #60 tablet 01/01/19 Unknown Rx Sucralfate [Carafate] 1 gm PO ACHS 30 Days oral.liqd 01/01/19 Unknown Rx Tamsulosin [Flomax] 1 cap PO DAILY #30 capsule 01/01/19 Unknown Rx carvediloL [Coreg] 12.5 mg PO BID #30 tablet 01/01/19 Unknown Rx oxyCODONE /ACETAMINOPHEN [Percocet 1 tab PO Q4HR #10 tab 01/01/19 Unknown Rx 5/325 mg] ED Physical Exam - General Limitations: No Limitations General appearance: alert, in no apparent distress - Head Head exam: Present: atraumatic, normocephalic, normal inspection - Eye Eye exam: Present: normal appearance - ENT ENT exam: Present: normal exam, normal orophraynx, mucous membranes moist - Neck Neck exam: Present: normal inspection, full ROM. Absent: tenderness, meningismus, lymphadenopathy, thyromegaly - Respiratory Respiratory exam: Present: normal lung sounds bilaterally - Cardiovascular Cardiovascular Exam: Present: regular rate, normal rhythm, normal heart sounds - GI/Abdominal GI/Abdominal exam: Present: soft, normal bowel sounds. Absent: distended, te nderness, guarding, rebound, rigid, organomegaly, mass, bruit, pulsatile mass, hernia - Extremities Exam Extremities exam: Present: normal inspection, full ROM, normal capillary refill. Absent: calf tenderness - Back Exam Back exam: Present: normal inspection, full ROM. Absent: CVA tenderness (R), CVA tenderness (L) - Neurological Exam Neurological exam: Present: alert, oriented X3, CN II-XII intact, normal gait, reflexes normal - Psychiatric Psychiatric exam: Present: normal mood - Skin Skin exam: Present: warm, intact, normal color ED Course Vital Signs 01/13/19 01/13/19 16:05 18:49 Temperature 97.9 F Pulse Rate 81 80 Respiratory 18 18 Rate Blood Pressure 175/101 Blood Pressure 173/99 [Left] O2 Sat by Pulse 99 98 Oximetry ED Medical Decision Making - Lab Data Result diagrams: 01/13/19 16:37 01/13/19 10:42 - EKG Data -: EKG Interpreted by Me EKG shows normal: sinus rhythm Rate: normal - EKG Data Interpretation: no acute changes - Radiology Data Radiology results: report reviewed - Medical Decision Making Patient is 65 years old female with no significant past medical history except for previous neck surgery 10 years ago. Patient presented to the ER complaining of two-week history of cough, congestion and chest pain. Patient describes her chest pain is sharp and increases with coughing and movement. Patient denied any fever or chills. No nausea or vomiting. Patient received morphine and Zofran. Patient has symptoms improved. Patient found to be hyperkalemic with potassium of 5.8. I discussed the patient was Dr. Palmer, fur blower operator reproduction technician. Dr. Palmer advised to admit the patient to the hospital for dialysis in the morning. Discussed the patient with Dr. Oakes, reviewed with the patient to medical service for further management. Critical Care Time: Yes Critical care time in (mins) excluding proc time.: 30 Critical care attestation.: If time is entered above; I have spent that time in minutes in the direct care of this critically ill patient, excluding procedure time. ED Disposition Clinical Impression: End-stage renal disease needing dialysis, Fluid overload, Hyperkalemia, Abdominal pain, Nausea and vomiting Disposition: OP ADMIT IP TO THIS HOSP Is pt being admited?: Yes Condition: Stable
--- NOTE | 2019-01-13 20:43 | Cat Scan Report ---
CT ABDOMEN AND PELVIS WITHOUT CONTRAST HISTORY: ABDOMINAL PAIN. COMPARISON: CT abdomen/pelvis from 12/28/2018 TECHNIQUE: CT images of the abdomen and pelvis were obtained without administration of intravenous co ntrast. All CT scans at this location are performed using CT dose reduction for ALARA by means of au tomated exposure control. FINDINGS: Lungs/bones: There is a moderate-sized left-sided pleural effusion with cardiomegaly and otherwise c lear lungs. Diffusely sclerotic bones are present with no acute osseous abnormality. Abdomen/pelvis: Tiny hepatic hypodensities are again noted, likely cysts. There is small volume asci alejandra. The gallbladder contains a small amount sludge. The spleen, pancreas, adrenals, and proximal GI tract appear unremarkable. The kidneys are atrophic. Prostate is grossly enlarged and indents the bladder base. The bladder is mostly collapsed with there is circumferential wall thickening as may be seen with chronic outlet obstruction. There is colonic diverticulosis with no acute inflammatory change identified. IMPRESSION: 1. Findings of volume overload again noted as well as renal osteodystrophy and urinary outlet obstruc tion. No acute abnormality. Signer Name: Slava Barrera MD Signed: 01/13/2019 8:38 PM Workstation Name: [id number]
[2019-01-13] MEDS ORDERED: MORPHINE 2 MG/1 ML INJ IV ONE (20:44)
[2019-01-13] MEDS ORDERED: SODIUM POLYSTYRENE 15 GM/60 ML ORAL LIQD PO ONE (21:43)
[2019-01-13] MEDS ORDERED: ONDANSETRON 4 MG/2 ML INJ IV PRN (23:25)
[2019-01-13] MEDS ORDERED: ACETAMINOPHEN 325 MG TAB PO PRN (23:25)
[2019-01-13] MEDS ORDERED: HYDROmorphone 1 MG/1 ML INJ IV PRN (23:25)
[2019-01-13] MEDS ORDERED: oxyCODONE /ACETAMINOPHEN 5-325MG TAB PO PRN (23:45)
--- NOTE | 2019-01-13 23:51 | History and Physical Report ---
History of Present Illness Date of examination: 01/13/19 Date of admission: 01/13/19 21:51 Chief complaint: Persistent vomiting for 1 day History of present illness: 64 years old male with history of end stage renal disease on hemodialysis , hypertension, hyperlipidemia, GERD and BPH comes in for diffuse abdominal pain and vomiting since yesterday. Vomited about 6-7 times. Patient had similar episode one month ago. Patient had hemodialysis yesterday and he is due for dialysis Thursday Which Is Tomorrow. Pain Is about 6-8 on Scale of 1-10. Sharp and Intermittent. No Precipitating Factors. No Exacerbating Factors except Food. No recent travel. Past Medical History Previous Medical History?: Yes Hypertension Renal Disease: Yes (THURSDAY, THURSDAY AND THURSDAY) Surgical History Past Surgical History?: Yes Additional Surgical History: shunt for dialysis Social History Smoking Status: Never Smoker Substance Use Type: None Family History Htn Medications Home Medications: Home Medications Medication Instructions Recorded Confirmed Last Taken Type Cefuroxime Axetil [Ceftin] 500 mg PO Q48H #3 ml 12/23/17 12/28/18 Unknown Rx Omeprazole 20 mg PO DAILY #30 tablet. 01/29/18 12/28/18 Unknown Rx Sevelamer Carbonate [Renvela] 800 mg PO DAILY #30 tablet 01/29/18 12/28/18 Unknown Rx NIFEdipine [Nifedipine ER] 30 mg PO DAILY #30 tablet.er 09/10/18 12/28/18 Unknown Rx Aspirin EC [Halfprin EC] 81 mg PO QDAY #30 tablet. 01/01/19 Unknown Rx AtorvaSTATin [Lipitor] 20 mg PO QHS #30 tablet 01/01/19 Unknown Rx Calcitriol [Rocaltrol] 0.5 mcg PO QDAY #30 capsule 01/01/19 Unknown Rx EPOETIN TRICIA 2,000 unit [Procrit] 2,000 unit IV MARGARET PRN vial 01/01/19 Unknown Rx Lisinopril [Zestril TAB] 40 mg PO QDAY #30 tablet 01/01/19 Unknown Rx NIFEdipine XL [Procardia Xl] 30 mg PO QDAY #30 tablet 01/01/19 Unknown Rx Pantoprazole [Protonix TAB] 40 mg PO BID #60 tablet 01/01/19 Unknown Rx Sucralfate [Carafate] 1 gm PO ACHS 30 Days oral.liqd 01/01/19 Unknown Rx Tamsulosin [Flomax] 1 cap PO DAILY #30 capsule 01/01/19 Unknown Rx carvediloL [Coreg] 12.5 mg PO BID #30 tablet 01/01/19 Unknown Rx oxyCODONE /ACETAMINOPHEN [Percocet 1 tab PO Q4HR #10 tab 01/01/19 Unknown Rx 5/325 mg] Review of Systems ROS: Stated complaint: VOMITING BLOOD/ABD PAIN Other details as noted in HPI Comment: All other systems reviewed and negative Constitutional: denies: chills, fever Respiratory: denies: cough, shortness of breath, SOB with exertion, SOB at rest Cardiovascular: denies: chest pain, palpitations Gastrointestinal: denies: abdominal pain, nausea, vomiting, diarrhea, constipation, hematemesis, melena, hematochezia Musculoskeletal: denies: back pain Neurological: denies: headache, weakness, numbness, paresthesias, confusion, abnormal gait Medications and Allergies Allergies Allergy/AdvReac Type Severity Reaction Status Date / Time No Known Allergies Allergy Verified 09/04/18 19:38 Home Medications Medication Instructions Recorded Confirmed Last Taken Type Cefuroxime Axetil [Ceftin] 500 mg PO Q48H #3 ml 12/23/17 12/28/18 Unknown Rx Omeprazole 20 mg PO DAILY #30 tablet. 01/29/18 12/28/18 Unknown Rx Sevelamer Carbonate [Renvela] 800 mg PO DAILY #30 tablet 01/29/18 12/28/18 Unknown Rx NIFEdipine [Nifedipine ER] 30 mg PO DAILY #30 tablet.er 09/10/18 12/28/18 Unknown Rx Aspirin EC [Halfprin EC] 81 mg PO QDAY #30 tablet. 01/01/19 Unknown Rx AtorvaSTATin [Lipitor] 20 mg PO QHS #30 tablet 01/01/19 Unknown Rx Calcitriol [Rocaltrol] 0.5 mcg PO QDAY #30 capsule 01/01/19 Unknown Rx EPOETIN TRICIA 2,000 unit [Procrit] 2,000 unit IV MARGARET PRN vial 01/01/19 Unknown Rx Lisinopril [Zestril TAB] 40 mg PO QDAY #30 tablet 01/01/19 Unknown Rx NIFEdipine XL [Procardia Xl] 30 mg PO QDAY #30 tablet 01/01/19 Unknown Rx Pantoprazole [Protonix TAB] 40 mg PO BID #60 tablet 01/01/19 Unknown Rx Sucralfate [Carafate] 1 gm PO ACHS 30 Days oral.liqd 01/01/19 Unknown Rx Tamsulosin [Flomax] 1 cap PO DAILY #30 capsule 01/01/19 Unknown Rx carvediloL [Coreg] 12.5 mg PO BID #30 tablet 01/01/19 Unknown Rx oxyCODONE /ACETAMINOPHEN [Percocet 1 tab PO Q4HR #10 tab 01/01/19 Unknown Rx 5/325 mg] Active Meds: Active Medications Acetaminophen (Tylenol) 650 mg PO Q4H PRN PRN Reason: Pain MILD(1-3)/Fever >100.5/STARK Aspirin (Halfprin Ec) 81 mg PO QDAY [facility] Atorvastatin Calcium (Lipitor) 20 mg PO QHS [facility] Calcitriol (Rocaltrol) 0.5 mcg PO QDAY [facility] Carvedilol (Coreg) 12.5 mg PO BID [facility] [place] Hydromorphone HCl (Dilaudid) 1 mg IV Q3H PRN PRN Reason: Pain , Severe (7-10) Lisinopril (Zestril) 40 mg PO QDAY [facility] Miscellaneous Medication (Nifedipine [Nifedipine Er]) 30 mg PO DAILY [facility] [place] Miscellaneous Medication (Omeprazole [Omeprazole]) 20 mg PO DAILY [facility] Ondansetron HCl (Zofran) 4 mg IV Q3H PRN PRN Reason: Nausea And Vomiting Oxycodone/Acetaminophen (Percocet 5/325) 1 tab PO Q4HR [facility] [place] Pantoprazole Sodium (Protonix) 40 mg PO BID [facility] Sevelamer Carbonate (Renvela) 800 mg PO DAILY [facility] [place] Sodium Chloride (Sodium Chloride Flush Syringe 10 Ml) 10 ml IV BID [facility] Sodium Chloride (Sodium Chloride Flush Syringe 10 Ml) 10 ml IV PRN PRN PRN Reason: LINE FLUSH Sucralfate (Carafate) 1 gm PO ACHS [facility] Tamsulosin HCl (Flomax) mg PO DAILY [facility] Exam - Constitutional Vitals: Temp Pulse Resp BP Pulse Ox 97.9 F 80 18 173/99 98 01/13/19 16:05 01/13/19 18:49 01/13/19 18:49 01/13/19 18:49 01/13/19 18:49 General appearance: Present: no acute distress, well-nourished - EENT Eyes: Present: PERRL ENT: hearing intact, clear oral mucosa - Neck Neck: Present: supple, normal ROM - Respiratory Respiratory effort: normal Respiratory: bilateral: CTA - Cardiovascular Heart rate: 94 Rhythm: regular Heart Sounds: Present: S1 & S2. Absent: rub, click - Extremities Extremities: no ischemia, pulses intact, pulses symmetrical, No edema Peripheral Pulses: within normal limits - Abdominal General gastrointestinal: Present: soft, non-tender, non-distended, normal bowel sounds Male genitourinary: Present: normal - Rectal Rectal Exam: deferred - Integumentary Integumentary: Present: clear, warm, dry - Musculoskeletal Musculoskeletal: gait normal, strength equal bilaterally - Psychiatric Psychiatric: appropriate mood/affect, intact judgment & insight - Neurologic Neurologic: CNII-XII intact, moves all extremities - Allied Health Allied health notes reviewed: nursing, case management Results - Labs CBC & Chem 7: 01/13/19 16:37 01/13/19 10:42 Labs: Laboratory Last Values WBC 4.3 K/mm3 (4.5-11.0) L 01/13/19 16:37 RBC 3.52 M/mm3 (3.65-5.03) L 01/13/19 16:37 Hgb 10.5 gm/dl (11.8-15.2) L 01/13/19 16:37 Hct 33.0 % (35.5-45.6) L 01/13/19 16:37 MCV 94 fl (84-94) 01/13/19 16:37 MCH 30 pg (28-32) 01/13/19 16:37 MCHC 32 % (32-34) 01/13/19 16:37 RDW 16.1 % (13.2-15.2) H 01/13/19 16:37 Plt Count 143 K/mm3 (140-440) 01/13/19 16:37 Lymph % (Auto) 31.7 % (13.4-35.0) 01/13/19 16:37 [place] % (Auto) 11.6 % (0.0-7.3) H 01/13/19 16:37 Eos % (Auto) 0.2 % (0.0-4.3) 01/13/19 16:37 Baso % (Auto) 0.4 % (0.0-1.8) 01/13/19 16:37 Lymph # 1.4 K/mm3 (1.2-5.4) 01/13/19 16:37 [place] # 0.5 K/mm3 (0.0-0.8) 01/13/19 16:37 Eos # 0.0 K/mm3 (0.0-0.4) 01/13/19 16:37 Baso # 0.0 K/mm3 (0.0-0.1) 01/13/19 16:37 Seg Neutrophils % 56.1 % (40.0-70.0) 01/13/19 16:37 Seg Neutrophils # 2.4 K/mm3 (1.8-7.7) 01/13/19 16:37 Sodium 137 mmol/L (137-145) 01/13/19 10:42 Potassium 5.8 mmol/L (3.6-5.0) H 01/13/19 10:42 Chloride 100.0 mmol/L (98-107) 01/13/19 10:42 Carbon Dioxide 16 mmol/L (22-30) L 01/13/19 10:42 Anion Gap 27 mmol/L 01/13/19 10:42 BUN 51 mg/dL (9-20) H 01/13/19 10:42 Creatinine 9.5 mg/dL (0.8-1.5) H 01/13/19 10:42 Estimated GFR 7 ml/min 01/13/19 10:42 BUN/Creatinine Ratio 5 % 01/13/19 10:42 Glucose 78 mg/dL (75-100) 01/13/19 10:42 Calcium 7.6 mg/dL (8.4-10.2) L 01/13/19 10:42 Total Bilirubin 1.40 mg/dL (0.1-1.2) H 01/13/19 10:42 AST 44 units/L (5-40) H 01/13/19 10:42 ALT 64 units/L (7-56) H 01/13/19 10:42 Alkaline Phosphatase 243 units/L (35-129) H 01/13/19 10:42 Troponin T 0.072 ng/mL (0.00-0.029) H 01/13/19 20:44 Total Protein 7.2 g/dL (6.3-8.2) 01/13/19 10:42 Albumin 4.3 g/dL (3.9-5) 01/13/19 10:42 Albumin/Globulin Ratio 1.5 % 01/13/19 10:42 Triglycerides 60 mg/dL (2-149) 01/13/19 16:37 Cholesterol 151 mg/dL (50-199) 01/13/19 16:37 LDL Cholesterol Direct 49 mg/dL (50-130) L 01/13/19 16:37 HDL Cholesterol 107 mg/dL (40-59) H 01/13/19 16:37 Cholesterol/HDL Ratio 1.41 % 01/13/19 16:37 Lipase 108 units/L (13-60) H 01/13/19 10:42 - Imaging and Cardiology EKG: report reviewed (normal sinus rhythm heart rate of 84/ minute) Chest x-ray: report reviewed (left pleural effusion is decreased in size) CT scan - abdomen: report reviewed Imaging and Cardiology: Abnormal/pelvis CT IMPRESSION: 1. Findings of volume overload again noted as well as renal osteodystrophy and urinary outlet obstruction. No acute abnormality. Assessment and Plan Advance Directives: Yes (full code) Plan of care discussed with patient/family: Yes - Patient Problems (1) Hyperkalemia Current Visit: Yes Status: Acute Plan to address problem: Treated in the emergency room Patient going for dialysis tomorrow (2) Gastroparesis Current Visit: Yes Status: Acute Plan to address problem: IV Zofran and IV Reglan IV fluids as necessary (3) End stage renal disease Current Visit: Yes Status: Chronic Plan to address problem: Continue hemodialysis as per schedule Patient is volume overload Nephrology recruiting consultant (4) BPH (benign prostatic hyperplasia) Current Visit: No Status: Chronic Qualifiers: Lower urinary tract symptom presence: symptoms present Plan to address problem: Continue Flomax (5) GERD (gastroesophageal reflux disease) Current Visit: No Status: Chronic Qualifiers: Esophagitis presence: without esophagitis Qualified Code(s): K21.9 - Gastro-esophageal reflux disease without esophagitis Plan to address problem: Patient is on Protonix and sucralfate (6) HTN (hypertension) Current Visit: No Status: Chronic Qualifiers: Hypertension type: essential hypertension Qualified Code(s): I10 - Essential (primary) hypertension Plan to address problem: Continue antihypertensives (7) Hyperlipidemia Current Visit: Yes Status: Chronic Qualifiers: Hyperlipidemia type: unspecified Qualified Code(s): E78.5 - Hyperlipidemia, unspecified Plan to address problem: Continue statins in the form of Lipitor 20 mg daily (8) Persistent vomiting Current Visit: Yes Status: Acute Plan to address problem: Symptomatic treatment with IV Zofran and IV Reglan (9) DVT prophylaxis Current Visit: No Status: Acute Plan to address problem: On heparin and GI prophylaxis
[2019-01-14] MEDS ORDERED: SODIUM POLYSTYRENE 15 GM/60 ML ORAL LIQD ONE ×2 (00:13→00:19)
[2019-01-14] MEDS ORDERED: carvediloL 6.25 MG TAB ONE (00:13)
[2019-01-14] MEDS ORDERED: HEPARIN 5,000 UNIT/1 ML VIAL ONE (00:13)
[2019-01-14] MEDS ORDERED: PANTOPRAZOLE 40 MG TAB PO ONE (00:14)
[2019-01-14] MEDS: carvediloL 12.5 MG TAB PO SCH ×3 (00:15→20:59)
[2019-01-14] MEDS: HEPARIN 5,000 UNIT/1 ML VIAL SUB-Q SCH ×3 (00:15→21:01)
[2019-01-14] MEDS: PANTOPRAZOLE 40 MG TAB PO SCH ×3 (00:15→20:59)
[2019-01-14 06:20] LABS: Basophils % (Auto) 0.7 % (0.0-1.8); Eosinophils # (Auto) 0.1 K/mm3 (0.0-0.4); Eosinophils % (Auto) 1.7 % (0.0-4.3); Hematocrit 31.5 % (35.5-45.6); Hemoglobin 10.1 gm/dl (11.8-15.2); Lymphocytes # (Auto) 1.5 K/mm3 (1.2-5.4); Lymphocytes % (Auto) 35.3 % (13.4-35.0); Mean Corpuscular HGB Conc 32 % (32-34); Mean Corpuscular Volume 93 fl (84-94); Monocytes # (Auto) 0.6 K/mm3 (0.0-0.8); Monocytes % (Auto) 13.9 % (0.0-7.3); Platelet Count 155 K/mm3 (140-440); Red Blood Count 3.37 M/mm3 (3.65-5.03); Red Cell Distribution Width 16.1 % (13.2-15.2)
[2019-01-14 06:42] LABS: Albumin 3.9 g/dL (3.9-5); Calcium 7.8 mg/dL (8.4-10.2)
[2019-01-14] MEDS ORDERED: SODIUM CHLORIDE 0.9% 100 ML IV PRN (08:00)
[2019-01-14] MEDS: SUCRALFATE 1 GM TAB PO SCH ×4 (08:17→20:59)
[2019-01-14] MEDS: SEVELAMER CARBONATE 800 MG TAB PO SCH (08:17)
[2019-01-14] MEDS: NIFEdipine XL 30 MG TAB PO SCH (08:17)
--- NOTE | 2019-01-14 09:07 | Consultation ---
History of Present Illness - Reason for Consult Consult date: 01/14/19 end stage renal disease - History of Present Illness This is a 63 year old man with ESRD who presents with one day of nausea, vomiting, and abdominal pain. Had last dialysis on 01/12/2019; usually he dialyzes at [facility] on , but had a change in schedule this week due to Thanksgiving. This morning, he continues to have abdominal pain. No dyspnea, no chest pain, no concerning swelling noted. No issues with recent dialysis sessions. Past History Past Medical History: ESRD Past Surgical History: No surgical history Social history: no significant social history Family history: no significant family history Medications and Allergies Allergies Allergy/AdvReac Type Severity Reaction Status Date / Time No Known Allergies Allergy Verified 09/04/18 19:38 Home Medications Medication Instructions Recorded Confirmed Last Taken Type Cefuroxime Axetil [Ceftin] 500 mg PO Q48H #3 ml 12/23/17 01/13/19 Unknown Rx Omeprazole 20 mg PO DAILY #30 tablet. 01/29/18 01/13/19 Unknown Rx Sevelamer Carbonate [Renvela] 800 mg PO DAILY #30 tablet 01/29/18 01/13/19 Unknown Rx NIFEdipine [Nifedipine ER] 30 mg PO DAILY #30 tablet.er 09/10/18 01/13/19 Unknown Rx Aspirin EC [Halfprin EC] 81 mg PO QDAY #30 tablet. 01/01/19 01/13/19 Unknown Rx AtorvaSTATin [Lipitor] 20 mg PO QHS #30 tablet 01/01/19 01/13/19 Unknown Rx Calcitriol [Rocaltrol] 0.5 mcg PO QDAY #30 capsule 01/01/19 01/13/19 Unknown Rx EPOETIN TRICIA 2,000 unit [Procrit] 2,000 unit IV MARGARET PRN vial 01/01/19 01/13/19 Unknown Rx Lisinopril [Zestril TAB] 40 mg PO QDAY #30 tablet 01/01/19 01/13/19 Unknown Rx NIFEdipine XL [Procardia Xl] 30 mg PO QDAY #30 tablet 01/01/19 01/13/19 Unknown Rx Pantoprazole [Protonix TAB] 40 mg PO BID #60 tablet 01/01/19 01/13/19 Unknown Rx Sucralfate [Carafate] 1 gm PO ACHS 30 Days oral.liqd 01/01/19 01/13/19 Unknown Rx Tamsulosin [Flomax] 1 cap PO DAILY #30 capsule 01/01/19 01/13/19 Unknown Rx carvediloL [Coreg] 12.5 mg PO BID #30 tablet 01/01/19 01/13/19 Unknown Rx oxyCODONE /ACETAMINOPHEN [Percocet 1 tab PO Q4HR #10 tab 01/01/19 01/13/19 Unknown Rx 5/325 mg] Active Meds: Active Medications Acetaminophen (Tylenol) 650 mg PO Q4H PRN PRN Reason: Pain MILD(1-3)/Fever >100.5/STARK Aspirin (Halfprin Ec) 81 mg PO QDAY [facility] Atorvastatin Calcium (Lipitor) 20 mg PO QHS [facility] Calcitriol (Rocaltrol) 0.5 mcg PO QDAY [facility] Carvedilol (Coreg) 12.5 mg PO BID [facility] Last Admin: 01/14/19 00:15 Dose: 12.5 mg Documented by: Heparin Sodium (Porcine) (Heparin) 5,000 unit SUB-Q Q12HR [facility] Last Admin: 01/14/19 00:15 Dose: 5,000 unit Documented by: Hydromorphone HCl (Dilaudid) 1 mg IV Q3H PRN PRN Reason: Pain , Severe (7-10) Last Admin: 01/14/19 05:51 Dose: 1 mg Documented by: Sodium Chloride (Nacl 0.9%) 100 mls @ 999 mls/hr IV MARGARET PRN PRN Reason: Hypotension Lisinopril (Zestril) 40 mg PO QDAY [facility] Nifedipine (Procardia Xl) 30 mg PO DAILY@0800 [facility] Last Admin: 01/14/19 08:17 Dose: 30 mg Documented by: Ondansetron HCl (Zofran) 4 mg IV Q3H PRN PRN Reason: Nausea And Vomiting Oxycodone/Acetaminophen (Percocet 5/325) 1 tab PO Q4H PRN PRN Reason: Pain, Moderate (4-6) Pantoprazole Sodium (Protonix) 40 mg PO BID [facility] Last Admin: 01/14/19 00:15 Dose: 40 mg Documented by: Sevelamer Carbonate (Renvela) 800 mg PO DAILY@0800 [facility] Last Admin: 01/14/19 08:17 Dose: 800 mg Documented by: Sodium Chloride (Sodium Chloride Flush Syringe 10 Ml) 10 ml IV BID [facility] Sodium Chloride (Sodium Chloride Flush Syringe 10 Ml) 10 ml IV PRN PRN PRN Reason: LINE FLUSH Sucralfate (Carafate) 1 gm PO ACHS [facility] Last Admin: 01/14/19 08:17 Dose: 1 gm Documented by: Tamsulosin HCl (Flomax) 0.4 mg PO DAILY [facility] Review of Systems Constitutional: poor appetite, no weight loss, no weight gain Ears, nose, mouth and throat: no ear pain Cardiovascular: no chest pain, no orthopnea, no rapid/irregular heart beat, no edema Respiratory: no cough, no shortness of breath, no congestion Gastrointestinal: abdominal pain, nausea, vomiting Genitourinary Male: no flank pain Neurological: no head injury, no weakness, no parathesias Exam - Vital Signs Vital signs: Vital Signs Temp Pulse Resp BP Pulse Ox 97.9 F 81 18 175/101 99 01/13/19 16:05 01/13/19 16:05 01/13/19 16:05 01/13/19 16:05 01/13/19 16:05 - Physical Exam Narrative exam: General: no acute distress, alert and oriented HEENT: NC/AT, normal sclera CV: RRR, no M/R/G Lungs: clear to auscultation bilaterally GI: soft, NT/ND, normal bowel sounds Back: no CVA tenderness Skin: intact Neuro: no focal deficits Results - Lab Results 01/14/19 05:42 01/14/19 05:42 Most recent lab results Calcium 7.8 mg/dL (8.4-10.2) L 01/14/19 05:42 Assessment and Plan This is a 63 year old man with ESRD who presents with abdominal pain. # ESRD: on HD // outpatient, off schedule this week - HD today for hyperkalemia, acidosis - if remains inpatient, will likely transition him back to normal outpatient schedule - avoid nephrotoxins - renally dose meds - renal diet # HTN: BP above goal, UF as tolerated with HD. Continue home meds # Anemia: hemoglobin at goal for ESRD, no indication for STEPHON # Secondary Hyperparathyroidism: continue home binders and calcitriol # Abdominal pain: management per primary Thank you for this consult, we will continue to follow with you.
[2019-01-14] MEDS: TAMSULOSIN 0.4 MG CAP PO SCH (09:26)
[2019-01-14] MEDS: CALCITRIOL 0.5 MCG CAP PO SCH (09:26)
[2019-01-14] MEDS: ASPIRIN EC 81 MG TAB PO SCH (09:26)
[2019-01-14] MEDS: LISINOPRIL 40 MG TAB PO SCH (09:27)
[2019-01-14] MEDS ORDERED: NON-FORMULARY EACH (Omeprazole [Omeprazole] 20 MG) PO SCH (10:00)
--- NOTE | 2019-01-14 11:12 | Progress Note ---
Assessment and Plan Assessment and plan: -- Hyperkalemia Current Visit: Yes Status: Acute Dialysis today , closely monitor potassium levels Nephrology following -- End stage renal disease Current Visit: Yes Status: Chronic Continue hemodialysis as per schedule Patient is volume overload Nephrology following --Gastroparesis Current Visit: Yes Status: Acute IV Zofran and IV Reglan IV fluids as necessary GI evaluation if needed --Chronic bladder outlet obstruction Due to BPH. Outpatient urology follow-up -- BPH (benign prostatic hyperplasia) Current Visit: No Status: Chronic Continue Flomax -- GERD (gastroesophageal reflux disease) Current Visit: No Status: Chronic Patient is on Protonix and sucralfate --HTN (hypertension) Current Visit: No Status: Chronic Continue antihypertensives, PRN medications. -- Hyperlipidemia Continue statins, low cholesterol diet --Persistent vomiting Current Visit: Yes Status: Acute Symptomatic treatment with IV Zofran and IV Reglan --DVT prophylaxis Current Visit: No Status: Acute On heparin and GI prophylaxis Monitor closely and adjust management as needed Plan of care reviewed with the patient and his nurse Positive discharge home tomorrow if stable, and cleared by nephrology History Interval history: Patient examined medical records Admitted with hyperkalemia abdominal pain Scheduled for hemodialysis today No new complaints Vital signs reviewed Hospitalist Physical - Constitutional Vitals: Temp Pulse Resp BP Pulse Ox 98.2 F 88 18 157/103 93 01/14/19 08:11 01/14/19 09:27 01/14/19 08:11 01/14/19 09:27 01/14/19 08:11 General appearance: Present: no acute distress, well-nourished - EENT Eyes: Present: PERRL, EOM intact - Neck Neck: Present: supple, normal ROM - Respiratory Respiratory effort: normal Respiratory: bilateral: diminished, negative: rales, rhonchi, wheezing - Cardiovascular Rhythm: regular Heart Sounds: Present: S1 & S2 - Extremities Extremities: no ischemia, No edema - Abdominal General gastrointestinal: soft, non-tender, non-distended, normal bowel sounds - Integumentary Integumentary: Present: clear, warm - Psychiatric Psychiatric: appropriate mood/affect - Neurologic Neurologic: CNII-XII intact, moves all extremities Results - Labs CBC & Chem 7: 01/14/19 05:42 01/14/19 05:42 Labs: Laboratory Last Values WBC 4.3 K/mm3 (4.5-11.0) L 01/14/19 05:42 RBC 3.37 M/mm3 (3.65-5.03) L 01/14/19 05:42 Hgb 10.1 gm/dl (11.8-15.2) L 01/14/19 05:42 Hct 31.5 % (35.5-45.6) L 01/14/19 05:42 MCV 93 fl (84-94) 01/14/19 05:42 MCH 30 pg (28-32) 01/14/19 05:42 MCHC 32 % (32-34) 01/14/19 05:42 RDW 16.1 % (13.2-15.2) H 01/14/19 05:42 Plt Count 155 K/mm3 (140-440) 01/14/19 05:42 Lymph % (Auto) 35.3 % (13.4-35.0) H 01/14/19 05:42 [place] % (Auto) 13.9 % (0.0-7.3) H 01/14/19 05:42 Eos % (Auto) 1.7 % (0.0-4.3) 01/14/19 05:42 Baso % (Auto) 0.7 % (0.0-1.8) 01/14/19 05:42 Lymph # 1.5 K/mm3 (1.2-5.4) 01/14/19 05:42 [place] # 0.6 K/mm3 (0.0-0.8) 01/14/19 05:42 Eos # 0.1 K/mm3 (0.0-0.4) 01/14/19 05:42 Baso # 0.0 K/mm3 (0.0-0.1) 01/14/19 05:42 Seg Neutrophils % 48.4 % (40.0-70.0) 01/14/19 05:42 Seg Neutrophils # 2.1 K/mm3 (1.8-7.7) 01/14/19 05:42 Sodium 142 mmol/L (137-145) 01/14/19 05:42 Potassium 5.3 mmol/L (3.6-5.0) H 01/14/19 05:42 Chloride 102.9 mmol/L (98-107) 01/14/19 05:42 Carbon Dioxide 20 mmol/L (22-30) L 01/14/19 05:42 Anion Gap 24 mmol/L 01/14/19 05:42 BUN 59 mg/dL (9-20) H 01/14/19 05:42 Creatinine 11.1 mg/dL (0.8-1.5) H 01/14/19 05:42 Estimated GFR 6 ml/min 01/14/19 05:42 BUN/Creatinine Ratio 5 % 01/14/19 05:42 Glucose 99 mg/dL (75-100) 01/14/19 05:42 Hemoglobin A1c 4.9 % (4-6) 01/13/19 23:52 Calcium 7.8 mg/dL (8.4-10.2) L 01/14/19 05:42 Total Bilirubin 1.50 mg/dL (0.1-1.2) H 01/14/19 05:42 AST 24 units/L (5-40) 01/14/19 05:42 ALT 50 units/L (7-56) 01/14/19 05:42 Alkaline Phosphatase 225 units/L (35-129) H 01/14/19 05:42 Troponin T 0.072 ng/mL (0.00-0.029) H 01/13/19 20:44 Total Protein 7.1 g/dL (6.3-8.2) 01/14/19 05:42 Albumin 3.9 g/dL (3.9-5) 01/14/19 05:42 Albumin/Globulin Ratio 1.2 % 01/14/19 05:42 Triglycerides 60 mg/dL (2-149) 01/13/19 16:37 Cholesterol 151 mg/dL (50-199) 01/13/19 16:37 LDL Cholesterol Direct 49 mg/dL (50-130) L 01/13/19 16:37 HDL Cholesterol 107 mg/dL (40-59) H 01/13/19 16:37 Cholesterol/HDL Ratio 1.41 % 01/13/19 16:37 Lipase 108 units/L (13-60) H 01/13/19 10:42 Active Medications - Current Medications Current Medications: Generic Name Dose Route Start Last Admin Trade Name Freq PRN Reason Stop Dose Admin Acetaminophen 650 mg 01/13/19 23:25 Tylenol PO Q4H PRN Pain MILD(1-3)/Fever >100.5/STARK Aspirin 81 mg 01/14/19 10:00 01/14/19 09:26 Halfprin Ec PO 81 mg QDAY [facility] Administration Atorvastatin Calcium 20 mg 01/14/19 22:00 Lipitor PO QHS [facility] Calcitriol 0.5 mcg 01/14/19 10:00 01/14/19 09:26 Rocaltrol PO 0.5 mcg QDAY [facility] Administration Carvedilol 12.5 mg 01/13/19 23:45 01/14/19 09:27 Coreg PO 12.5 mg BID [facility]E Administration Heparin Sodium (Porcine) 5,000 unit 01/14/19 00:15 01/14/19 09:33 Heparin SUB-Q 5,000 unit Q12HR [facility] Administration Hydromorphone HCl 1 mg 01/13/19 23:25 01/14/19 05:51 Dilaudid IV 1 mg Q3H PRN Administration Pain , Severe (7-10) Sodium Chloride 100 mls @ 999 mls/hr 01/14/19 08:00 Nacl 0.9% IV MARGARET PRN Hypotension Lisinopril 40 mg 01/14/19 10:00 01/14/19 09:27 Zestril PO 40 mg QDAY [facility] Administration Nifedipine 30 mg 01/14/19 08:00 01/14/19 08:17 Procardia Xl PO 30 mg DAILY@0800 [facility] Administration Ondansetron HCl 4 mg 01/13/19 23:25 Zofran IV Q3H PRN Nausea And Vomiting Oxycodone/Acetaminophen 1 tab 01/13/19 23:45 Percocet 5/325 PO Q4H PRN Pain, Moderate (4-6) Pantoprazole Sodium 40 mg 01/13/19 23:45 01/14/19 09:26 Protonix PO 40 mg BID [facility] Administration Sevelamer Carbonate 800 mg 01/14/19 08:00 01/14/19 08:17 Renvela PO 800 mg DAILY@0800 [facility] Administration Sodium Chloride 10 ml 01/14/19 10:00 01/14/19 09:27 Sodium Chloride Flush Syringe 10 Ml IV 10 ml BID [facility]E Administration Sodium Chloride 10 ml 01/13/19 23:25 Sodium Chloride Flush Syringe 10 Ml IV PRN PRN LINE FLUSH Sucralfate 1 gm 01/14/19 07:30 01/14/19 08:17 Carafate PO 1 gm ACHS [facility]E Administration Tamsulosin HCl 0.4 mg 01/14/19 10:00 01/14/19 09:26 Flomax PO 0.4 mg DAILY [facility] Administration
[2019-01-14] MEDS ORDERED: SODIUM CHLORIDE*PRIMING MACHINE ONLY FOR DIALYSIS MC ONE (18:20)
[2019-01-15 06:37] LABS: Calcium 6.7 mg/dL (8.4-10.2)
[2019-01-15] MEDS: SUCRALFATE 1 GM TAB PO SCH ×4 (08:47→21:26)
[2019-01-15] MEDS: SEVELAMER CARBONATE 800 MG TAB PO SCH (08:47)
[2019-01-15] MEDS: NIFEdipine XL 30 MG TAB PO SCH (08:48)
[2019-01-15] MEDS: PANTOPRAZOLE 40 MG TAB PO SCH ×2 (09:43→21:26)
[2019-01-15] MEDS: ASPIRIN EC 81 MG TAB PO SCH (09:43)
[2019-01-15] MEDS: CALCITRIOL 0.5 MCG CAP PO SCH (09:43)
[2019-01-15] MEDS: carvediloL 12.5 MG TAB PO SCH ×2 (09:43→21:26)
[2019-01-15] MEDS: TAMSULOSIN 0.4 MG CAP PO SCH (09:44)
[2019-01-15] MEDS: LISINOPRIL 40 MG TAB PO SCH (09:44)
[2019-01-15] MEDS: HEPARIN 5,000 UNIT/1 ML VIAL SUB-Q SCH ×2 (09:46→21:29)
[2019-01-15] MEDS ORDERED: SODIUM CHLORIDE 0.9% 100 ML IV PRN (14:42)
--- NOTE | 2019-01-15 15:05 | Progress Note ---
Assessment and Plan This is a 63 year old man with ESRD who presents with abdominal pain. # ESRD: on HD // outpatient, off schedule this week - no indication for HD today, will continue HD prn while inpatient - ok for discharge from renal perspective - avoid nephrotoxins - renally dose meds - renal diet - return precautions given for emergent dialysis indications # HTN: BP at goal, UF as tolerated with HD. Continue home meds # Anemia: hemoglobin at goal for ESRD, no indication for STEPHON # Secondary Hyperparathyroidism: continue home binders and calcitriol # Abdominal pain: management per primary Thank you for this consult, we will continue to follow with you. Subjective Date of service: 01/15/19 Interval history: No acute events noted. Doing well today; tolerated full HD session well yesterday. No dyspnea, no chest pain noted. No swelling of legs. Good appetite. Objective - Exam Narrative Exam: General: no acute distress, alert and oriented HEENT: NC/AT, normal sclera CV: RRR, no M/R/G Lungs: clear to auscultation bilaterally GI: soft, NT/ND, normal bowel sounds Back: no CVA tenderness Skin: intact Neuro: no focal deficits - Vital Signs Vital signs: Vital Signs - 12hr 01/15/19 01/15/19 01/15/19 04:03 04:16 08:08 Temperature 97.8 F 98.3 F Pulse Rate 64 70 72 Respiratory 20 18 Rate Blood Pressure 138/76 132/79 O2 Sat by Pulse 95 96 Oximetry 01/15/19 01/15/19 01/15/19 09:43 09:44 10:00 Temperature Pulse Rate 72 72 Respiratory 18 Rate Blood Pressure 132/79 132/79 O2 Sat by Pulse 97 Oximetry 01/15/19 01/15/19 12:08 13:00 Temperature 98.4 F Pulse Rate 77 66 Respiratory 18 Rate Blood Pressure 121/72 O2 Sat by Pulse 96 Oximetry - Lab 01/14/19 05:42 01/15/19 05:55 Most recent lab results Calcium 6.7 mg/dL (8.4-10.2) L 01/15/19 05:55 Medications & Allergies - Medications Allergies/Adverse Reactions: Allergies No Known Allergies Allergy (Verified 09/04/18 19:38) Home Medications: Home Medications Medication Instructions Recorded Confirmed Last Taken Type Cefuroxime Axetil [Ceftin] 500 mg PO Q48H #3 ml 12/23/17 01/13/19 Unknown Rx Omeprazole 20 mg PO DAILY #30 tablet. 01/29/18 01/13/19 Unknown Rx Sevelamer Carbonate [Renvela] 800 mg PO DAILY #30 tablet 01/29/18 01/13/19 Unknown Rx NIFEdipine [Nifedipine ER] 30 mg PO DAILY #30 tablet.er 09/10/18 01/13/19 Unknown Rx Aspirin EC [Halfprin EC] 81 mg PO QDAY #30 tablet. 01/01/19 01/13/19 Unknown Rx AtorvaSTATin [Lipitor] 20 mg PO QHS #30 tablet 01/01/19 01/13/19 Unknown Rx Calcitriol [Rocaltrol] 0.5 mcg PO QDAY #30 capsule 01/01/19 01/13/19 Unknown Rx EPOETIN TRICIA 2,000 unit [Procrit] 2,000 unit IV MARGARET PRN vial 01/01/19 01/13/19 Unknown Rx Lisinopril [Zestril TAB] 40 mg PO QDAY #30 tablet 01/01/19 01/13/19 Unknown Rx NIFEdipine XL [Procardia Xl] 30 mg PO QDAY #30 tablet 01/01/19 01/13/19 Unknown Rx Pantoprazole [Protonix TAB] 40 mg PO BID #60 tablet 01/01/19 01/13/19 Unknown Rx Sucralfate [Carafate] 1 gm PO ACHS 30 Days oral.liqd 01/01/19 01/13/19 Unknown Rx Tamsulosin [Flomax] 1 cap PO DAILY #30 capsule 01/01/19 01/13/19 Unknown Rx carvediloL [Coreg] 12.5 mg PO BID #30 tablet 01/01/19 01/13/19 Unknown Rx oxyCODONE /ACETAMINOPHEN [Percocet 1 tab PO Q4HR #10 tab 01/01/19 01/13/19 Unknown Rx 5/325 mg] Active Medications: Generic Name Dose Route Start Last Admin Trade Name Freq PRN Reason Stop Dose Admin Acetaminophen 650 mg 01/13/19 23:25 Tylenol PO Q4H PRN Pain MILD(1-3)/Fever >100.5/STARK Aspirin 81 mg 01/14/19 10:00 01/15/19 09:43 Halfprin Ec PO 81 mg QDAY BRANDEE Administration Atorvastatin Calcium 20 mg 01/14/19 22:00 01/14/19 20:59 Lipitor PO 20 mg QHS BRANDEE Administration Calcitriol 0.5 mcg 01/14/19 10:00 01/15/19 09:43 Rocaltrol PO 0.5 mcg QDAY BRANDEE Administration Carvedilol 12.5 mg 01/13/19 23:45 01/15/19 09:43 Coreg PO 12.5 mg BID BRANDEE Administration Heparin Sodium (Porcine) 5,000 unit 01/14/19 00:15 01/15/19 09:46 Heparin SUB-Q 5,000 unit Q12HR BRANDEE Administration Hydromorphone HCl 1 mg 01/13/19 23:25 01/14/19 05:51 Dilaudid IV 1 mg Q3H PRN Administration Pain , Severe (7-10) Sodium Chloride 100 mls @ 999 mls/hr 01/14/19 08:00 Nacl 0.9% IV MARGARET PRN Hypotension Sodium Chloride 100 mls @ 999 mls/hr 01/15/19 14:42 Nacl 0.9% IV MARGARET PRN Hypotension Lisinopril 40 mg 01/14/19 10:00 01/15/19 09:44 Zestril PO 40 mg QDAY BRANDEE Administration Nifedipine 30 mg 01/14/19 08:00 01/15/19 08:48 Procardia Xl PO 30 mg DAILY@0800 BRANDEE Administration Ondansetron HCl 4 mg 01/13/19 23:25 Zofran IV Q3H PRN Nausea And Vomiting Oxycodone/Acetaminophen 1 tab 01/13/19 23:45 Percocet 5/325 PO Q4H PRN Pain, Moderate (4-6) Pantoprazole Sodium 40 mg 01/13/19 23:45 01/15/19 09:43 Protonix PO 40 mg BID BRANDEE Administration Sevelamer Carbonate 800 mg 01/14/19 08:00 01/15/19 08:47 Renvela PO 800 mg DAILY@0800 BRANDEE Administration Sodium Chloride 10 ml 01/14/19 10:00 01/15/19 09:44 Sodium Chloride Flush Syringe 10 Ml IV 10 ml BID BRANDEE Administration Sodium Chloride 10 ml 01/13/19 23:25 Sodium Chloride Flush Syringe 10 Ml IV PRN PRN LINE FLUSH Sucralfate 1 gm 01/14/19 07:30 01/15/19 12:01 Carafate PO 1 gm ACHS BRANDEE Administration Tamsulosin HCl 0.4 mg 01/14/19 10:00 01/15/19 09:44 Flomax PO 0.4 mg DAILY BRANDEE Administration
--- NOTE | 2019-01-15 15:29 | Progress Note ---
Assessment and Plan - Patient Problems (1) Hyperkalemia Current Visit: Yes Status: Acute Plan to address problem: Corrected K 4.4 (2) Gastroparesis Current Visit: Yes Status: Acute Plan to address problem: IV Zofran and IV Reglan Still has some pain and emesis (3) End stage renal disease Current Visit: Yes Status: Chronic Plan to address problem: Continue hemodialysis as per schedule Patient is volume overload For HD tomorrow and Discharge (4) BPH (benign prostatic hyperplasia) Current Visit: No Status: Chronic Qualifiers: Lower urinary tract symptom presence: symptoms present Plan to address problem: Continue Flomax (5) GERD (gastroesophageal reflux disease) Current Visit: No Status: Chronic Qualifiers: Esophagitis presence: without esophagitis Qualified Code(s): K21.9 - Gastro-esophageal reflux disease without esophagitis Plan to address problem: Patient is on Protonix and sucralfate (6) HTN (hypertension) Current Visit: No Status: Chronic Qualifiers: Hypertension type: essential hypertension Qualified Code(s): I10 - Essential (primary) hypertension Plan to address problem: Continue antihypertensives (7) Hyperlipidemia Current Visit: Yes Status: Chronic Qualifiers: Hyperlipidemia type: unspecified Qualified Code(s): E78.5 - Hyperlipidemia, unspecified Plan to address problem: Continue statins in the form of Lipitor 20 mg daily (8) Persistent vomiting Current Visit: Yes Status: Acute Plan to address problem: Symptomatic treatment with IV Zofran and IV Reglan Better Still has some pain and vomiting (9) DVT prophylaxis Current Visit: No Status: Acute Plan to address problem: On heparin and GI prophylaxis (10) Discharge planning issues Current Visit: Yes Status: Acute Plan to address problem: For discharge tomorrow after HD Subjective Date of service: 01/15/19 Objective - Constitutional Vitals: Vital Signs - 12hr 01/15/19 01/15/19 01/15/19 04:03 04:16 08:08 Temperature 97.8 F 98.3 F Pulse Rate 64 70 72 Respiratory 20 18 Rate Blood Pressure 138/76 132/79 O2 Sat by Pulse 95 96 Oximetry 01/15/19 01/15/19 01/15/19 09:43 09:44 10:00 Temperature Pulse Rate 72 72 Respiratory 18 Rate Blood Pressure 132/79 132/79 O2 Sat by Pulse 97 Oximetry 01/15/19 01/15/19 12:08 13:00 Temperature 98.4 F Pulse Rate 77 66 Respiratory 18 Rate Blood Pressure 121/72 O2 Sat by Pulse 96 Oximetry - Labs CBC & Chem 7: 01/14/19 05:42 01/15/19 05:55 Labs: Abnormal lab results 01/15/19 Range/Units 05:55 BUN 32 H (9-20) mg/dL Creatinine 8.7 H (0.8-1.5) mg/dL Calcium 6.7 L (8.4-10.2) mg/dL
[2019-01-16] MEDS: SUCRALFATE 1 GM TAB PO SCH ×2 (08:10→12:05)
[2019-01-16] MEDS: NIFEdipine XL 30 MG TAB PO SCH ×2 (08:37→08:38)
[2019-01-16] MEDS: SEVELAMER CARBONATE 800 MG TAB PO SCH (08:37)
[2019-01-16] MEDS: HEPARIN 5,000 UNIT/1 ML VIAL SUB-Q SCH (09:36)
[2019-01-16] MEDS: TAMSULOSIN 0.4 MG CAP PO SCH (09:36)
[2019-01-16] MEDS: PANTOPRAZOLE 40 MG TAB PO SCH (09:36)
[2019-01-16] MEDS: ASPIRIN EC 81 MG TAB PO SCH (09:36)
[2019-01-16] MEDS: CALCITRIOL 0.5 MCG CAP PO SCH (09:36)
[2019-01-16] MEDS: LISINOPRIL 40 MG TAB PO SCH (09:37)
[2019-01-16] MEDS: carvediloL 12.5 MG TAB PO SCH (09:37)
[2019-01-16 11:29] VITALS: BP 122/70
[2019-01-16] MEDS ORDERED: LOPERAMIDE 2 MG/10 ML ORAL LIQD PO ONE (13:00)
[2019-01-16] MEDS ORDERED: LOPERAMIDE 2 MG/10 ML ORAL LIQD PO PRN (14:00)
--- NOTE | 2019-01-16 14:54 | Discharge Summary ---
Providers - Providers Date of Admission: 01/13/19 21:51 Attending physician: SHANTEL PIERRE MD 01/13/19 21:37 Consult to Physician [CONS] Stat Comment: Dr. Foster spoke with Dr. Clemente @ 2730 Consulting Provider: VARUN CLEMENTE Physician Instructions: Reason For Exam: end-stage renal disease, volume overload 01/13/19 23:30 Consult to Dietitian/Nutrition [CONS] Routine Physician Instructions: Reason For Exam: Reason for Consult: Pt needs oral supplement Primary care physician: TRADING MANAGER Hospitalization Reason for admission: vomiting Condition: Stable Hospital course: 64 years old male with history of end stage renal disease on hemodialysis , hypertension, hyperlipidemia, GERD and BPH comes in for diffuse abdominal pain and vomiting since yesterday. Vomited about 6-7 times. Patient had similar episode one month ago. Patient had hemodialysis yesterday and he is due for dialysis Thursday Which Is Tomorrow. Pain Is about 6-8 on Scale of 1-10. Sharp and Intermittent. No Precipitating Factors. No Exacerbating Factors except Food. * Per patient moved from [place] a few weeks ago * Chronic Diarrhea, dirrhea is more persistent than the nausea and vomiting. * Patient hx was very questionable and I believe he will benefit more with outpatient follow up, Review of records from [place] since he just relocated * Started on Bentyl (1) Hyperkalemia Current Visit: Yes Status: Acute Plan to address problem: Corrected K 4.4 (2) Gastroparesis Current Visit: Yes Status: Acute Plan to address problem: IV Zofran and IV Reglan Patient also reports chronic diarhea Still has some pain and emesis (3) End stage renal disease Current Visit: Yes Status: Chronic Plan to address problem: Continue hemodialysis as per schedule Patient is volume overload (4) BPH (benign prostatic hyperplasia) Current Visit: No Status: Chronic Qualifiers: Lower urinary tract symptom presence: symptoms present Plan to address problem: Continue Flomax (5) GERD (gastroesophageal reflux disease) Current Visit: No Status: Chronic Qualifiers: Esophagitis presence: without esophagitis Qualified Code(s): K21.9 - Gastro-esophageal reflux disease without esophagitis Plan to address problem: Patient is on Protonix and sucralfate (6) HTN (hypertension) Current Visit: No Status: Chronic Qualifiers: Hypertension type: essential hypertension Qualified Code(s): I10 - Essential (primary) hypertension Plan to address problem: Continue antihypertensives (7) Hyperlipidemia Current Visit: Yes Status: Chronic Qualifiers: Hyperlipidemia type: unspecified Qualified Code(s): E78.5 - Hyperlipidemia, unspecified Plan to address problem: Continue statins in the form of Lipitor 20 mg daily (8) Persistent vomiting Current Visit: Yes Status: Acute Plan to address problem: Symptomatic treatment with IV Zofran and IV Reglan Better improved. Disposition: TO HOME OR SELFCARE Time spent for discharge: 35 mins Core Measure Documentation - Palliative Care Palliative Care/ Comfort Measures: Not Applicable - Core Measures Any of the following diagnoses?: none Exam - Constitutional Vitals: Temp Pulse Resp BP Pulse Ox 98.5 F 71 18 122/70 99 01/16/19 11:27 01/16/19 11:27 01/16/19 11:27 01/16/19 11:27 01/16/19 11:27 General appearance: Present: no acute distress, well-nourished - EENT Eyes: Present: EOM intact - Neck Neck: Present: supple, normal ROM - Respiratory Respiratory effort: normal Respiratory: bilateral: CTA - Cardiovascular Rhythm: regular Heart Sounds: Present: S1 & S2, systolic murmur - Extremities Extremities: no ischemia, pulses intact, pulses symmetrical, No edema, normal temperature, normal color, Full ROM Peripheral Pulses: within normal limits - Abdominal General gastrointestinal: Present: soft, non-tender, non-distended, normal bowel sounds - Integumentary Integumentary: Present: clear, warm - Musculoskeletal Musculoskeletal: strength equal bilaterally - Psychiatric Psychiatric: appropriate mood/affect, intact judgment & insight - Neurologic Neurologic: CNII-XII intact, moves all extremities - Allied Health Allied health notes reviewed: nursing Plan Activity: advance as tolerated, fall precautions Diet: low fat, low salt Special Instructions: record daily weights, record daily BP diary Follow up with: PRIMARY MD CLARE [Primary Care Provider] - 3-5 Days VARUN CLEMENTE MD [Staff Physician] - 7 Days Prescriptions: AtorvaSTATin [Lipitor] 20 mg PO QHS #30 tablet Dicyclomine [Bentyl] 10 mg PO QID #60 capsule carvediloL [Coreg] 12.5 mg PO BID #60 tablet Aspirin EC [Halfprin EC] 81 mg PO QDAY #30 tablet.dr NIFEdipine [Nifedipine ER] 30 mg PO DAILY #30 tablet.er Calcitriol [Rocaltrol] 0.5 mcg PO QDAY #30 capsule Lisinopril [Zestril TAB] 40 mg PO QDAY #30 tablet
[2019-01-16] MEDS ORDERED: DICYCLOMINE 10 MG/5 ML ORAL LIQD PO ONE (16:00)
== END 2019-01-16 16:09 | disposition home or self-care (01) | DRG 391 ==
LOC: ED 15:43 → 4A 21:51
PROVIDERS: ADMIT Internal Medicine; ATTEND Internal Medicine
PROC: 5A1D70Z Performance of Urinary Filtration, Intermittent, Less than 6 Hours Per Day (ICD-10-PCS; principal; 2019-01-14)
DX: K31.84 Gastroparesis (principal); N18.6 End stage renal disease; N13.8 Other obstructive and reflux uropathy; I13.2 Hypertensive heart and chronic kidney disease with heart failure and with stage 5 chronic kidney disease, or end stage renal disease; N25.81 Secondary hyperparathyroidism of renal origin; E87.5 Hyperkalemia; I50.9 Heart failure, unspecified; N40.1 Benign prostatic hyperplasia with lower urinary tract symptoms; K21.9 Gastro-esophageal reflux disease without esophagitis; D64.9 Anemia, unspecified; E78.5 Hyperlipidemia, unspecified; K52.9 Noninfective gastroenteritis and colitis, unspecified; Z99.2 Dependence on renal dialysis; Z79.899 Other long term (current) drug therapy; Z82.49 Family history of ischemic heart disease and other diseases of the circulatory system
CPT/HCPCS: 36415; 36430; 71045; 74176; 80048; 80053; 80061; 82962; 83036; 83690; 84484; 85025; 87116; 93005; 93010; G0378; A9270-GY; J1170; J1644; J2270; J2405; J7030

== ENCOUNTER 2020-12-21 17:43 | Emergency (ER) | payer MEDICARE, OTHER ==
[2020-12-21 17:58] VITALS: BP 159/87
--- NOTE | 2020-12-21 18:59 | Event Note ---
ED Screening Note Date of service: 12/21/20 Time: 18:59 ED Screening Note: 65-year-old -[place] male who has end-stage renal disease goes to dialysis Thursday and Thursday presents to the emergency room for with hyper tensive urgency and bright red blood from rectum. Patient was sent by the clinic. This initial assessment/diagnostic orders/clinical plan/treatment(s) is/are subject to change based on patients health status, clinical progression and re- assessment by fellow clinical providers in the ED. Further treatment and workup at subsequent clinical providers discretion. Patient/guardian urged not to elope from the ED as their condition may be serious if not clinically assessed and managed. Initial orders include: CBC CMP type and screen n
--- NOTE | 2020-12-23 11:41 | Electrocardiograph Report ---
[facility] Test Date: 2020-12-21 Test Time: 18:20:29 Pat Name: KISHOR FERNANDO Department: Room: Gender: M [employer] Handling Equipment Operator: ALEJANDRA : 1955 Requested By: GASTON HANNAH Order Number: [id number] Reading MD: Vince Saez Measurements Intervals [place] Rate: 76 P: 79 WA: 180 QRS: 86 QRSD: 92 T: 11 QT: 439 QTc: 493 Interpretive Statements Sinus rhythm Probable left atrial enlargement Left ventricular hypertrophy No previous ECG available for comparison Electronically Signed On 12-23-2020 11:40:52 EST by Vince Saez
== END 2020-12-21 19:13 | disposition left against medical advice (07) ==
LOC: ED 17:43
DX: R42 Dizziness and giddiness (principal); I10 Essential (primary) hypertension; Z53.21 Procedure and treatment not carried out due to patient leaving prior to being seen by health care provider
CPT/HCPCS: 93005